=== PATIENT | female | born 1960 | race Caucasian/White ===

== ENCOUNTER → 2016-07-22 | Outpatient (CLI) | payer BC ==
[~2016-07-22] MED LIST: CALC-393 PO; CALC-51 PO; CALC500T83 PO; CALC625T13 PO; CHLO10CA7 PO; CHOL1000 PO; CITA20TA4 PO; CLX/20 PO; CLX20 PO; CPR250 PO; FOLI1TAB7 PO; HYDR-3126 PO; LBR10 PO; LBR25 PO; MULT-506 PO; OMEP40CA PO; OMEP40CA41 PO; PROB1TAB16 PO; RBTUDL5 PO; THM100 PO; ULT50X PO; VITAMIN B1 PO; VTMD400 PO
[2016-07-22 17:33] LABS: BLOOD UREA NITROGEN 7 mg/dl (7-18); BUN/CREATININE RATIO 7.6 (10-20); CALCIUM 9.4 mg/dl (8.5-10.1); CARBON DIOXIDE 29 mmol/L (21-32); CHLORIDE 103 mmol/L (98-107); CREATININE 0.93 mg/dl (0.60-1.20); GLUCOSE 114 mg/dl (70-99); POTASSIUM 3.6 mmol/L (3.5-5.1); SODIUM 142 mmol/L (136-145)
[2016-07-22 17:37] LABS: ALB/GLOB RATIO 0.9 (0.9-2); ALKALINE PHOSPHATASE 192 U/L (45-117); ALT/SGPT 45 U/L (12-78); AST/SGOT 161 U/L (15-37)
[2016-07-22 17:59] LABS: HEMATOCRIT 32.1 % (37-47); MEAN CELL VOLUME 101.3 fL (80-100); MEAN CORPUSCULAR HEMOGLOBIN 34.7 pg (25-34); MEAN CORPUSCULAR HGB CONC 34.3 g/dl (32-36); RED BLOOD COUNT 3.17 M/uL (4.2-5.4); WHITE BLOOD COUNT 3.74 K/uL (4.8-10.8)
[2016-07-22 18:04] LABS: BASO % 1.9 %; BASO ABS # 0.07 K/uL (0-0.2); COMPLETE YES; EOS % 0.5 %; IG% 1.1 %; LYMPH % 32.4 %; LYMPH ABS # 1.21 K/uL (1.2-3.4); MEAN PLATELET VOLUME 10.5 fL (7.4-10.4); MONO % 24.6 %; NEUT % 39.5 %; PLATELET COUNT 93 K/uL (130-400); PLT ESTIMATE DECREASED; TARGET CELLS 1+
== END | disposition home or self-care (01) ==
LOC: C.LABPVFM 11:46
PROVIDERS: ATTEND Nurse Practitioner
DX: R63.4 Abnormal weight loss (principal); R74.8 Abnormal levels of other serum enzymes; F10.10 Alcohol abuse, uncomplicated; D64.9 Anemia, unspecified

== ENCOUNTER 2016-09-29 08:14 | Inpatient (IN) | payer BC ==
[~2016-09-29] VITALS: Ht 160 cm; Wt 54.1 kg
[~2016-09-29 08:14] MED LIST changes: -CALC-393 PO; -CALC-51 PO; -CALC500T83 PO; -CALC625T13 PO; -CHLO10CA7 PO; -CHOL1000 PO; +CIPR250T5 PO; -CITA20TA4 PO; -CLX/20 PO; -CPR250 PO; -FOLI1TAB7 PO; -HYDR-3126 PO; -LBR10 PO; -MULT-506 PO; -OMEP40CA41 PO; -PROB1TAB16 PO; -THM100 PO; -ULT50X PO; -VITAMIN B1 PO; -VTMD400 PO
[2016-09-29] MEDS ORDERED: SODIUM CHLORIDE 0.9% 1000ML 1,000 ML IV STA (08:25)
--- NOTE | 2016-09-29 08:38 | EMERGENCY ROOM VISIT NOTE ---
History Report prepared by Danilo: Eriberto Barclay Under the Supervision of: Dr. Mireya Potts M.D. First contact with patient: 08:24 Chief Complaint: ABDOMINAL PAIN Stated Complaint: WEAKNESS, VOMITING Nursing Triage Summary: Triage note: Pt reports right abd pain over the past two days "they told me i would have to get my gall bladder out last september when i was in here." pt reports nausea and vomitting. pt reports she has passed out twice in the week. most recent was this am at work. History of Present Illness The patient is a 56 year old female who presents to the Emergency Room with complaints of intermittent right-sided abdominal pain for the past week. The pain is rated 10/10 in severity. The patient vomited this morning. She feels that her abdomen has been growing. The patient was told that she would eventually need to have her gallbladder removed. She denies fevers, shortness of breath or diarrhea. The patient had two episodes of syncope this week. She was not exerting herself when these episodes occurred. As per , the patient was incoherent and staggering when these episodes occurred , and she was difficult to rouse. She denies significant intoxication at the time of these syncopal episodes. The patient admits that she is an alcoholic. She already had vodka this morning. The patient was diagnosed with a fatty liver. Source of History: patient, spouse/significant other Onset: one week Position: abdomen (right) Symptom Intensity: 10/10 Timing: intermittent Associated Symptoms: + LOC (syncope), + vomiting, No SOB, No diarrhea, No fevers Review of Systems See HPI for pertinent positives & negatives. A total of 10 systems reviewed and were otherwise negative. Past Medical & Surgical Medical Problems: (1) Alcoholic cirrhosis of liver (2) Coagulopathy (3) Right upper quadrant abdominal pain Family History Cancer Diabetes mellitus Gallbladder disease Hypertension Lung disease Social History Smoking Status: Current Every Day Smoker Alcohol Use: heavy Drug Use: none Marital Status: Housing Status: lives with family Occupation Status: employed Current/Historical Medications Scheduled Calcium (Calcium), 1 TAB PO DAILY Chlordiazepoxide (Chlordiazepoxide HCl), 10 MG PO DAILY Cholecalciferol (Vitamin D3), 1 TAB PO DAILY Citalopram (Citalopram Hydrobromide), 1 TAB PO DAILY Multivitamin (Multivitamin), 1 TAB PO DAILY Omeprazole (Prilosec), 1 CAP PO BID Allergies Coded Allergies: No Known Allergies (Verified , 09/15/15) Physical Exam Vital Signs Date Time Temp Pulse Resp B/P Pulse Ox O2 Delivery O2 Flow Rate FiO2 09/29/16 13:25 82 20 126/71 97 Room Air 09/29/16 12:30 98 Room Air 09/29/16 11:21 88 16 127/78 98 Room Air 09/29/16 10:32 92 16 120/79 99 09/29/16 09:55 84 16 107/71 99 Room Air 09/29/16 08:17 36.4 125 22 163/101 97 Room Air Physical Exam Vital signs reviewed. General: Chronically ill-appearing female, in no significant distress. HEENT: No scleral icterus, PERRLA, neck supple. Atraumatic. Cardiovascular: Regular rate and rhythm, no extra sounds. Pulmonary: Clear to auscultation bilaterally, normal work of breathing. Abdomen: Distended, mild tenderness to the right upper quadrant. Musculoskeletal: Atraumatic, no peripheral edema. Neurologic: Patient awake alert and oriented x 3, full strength in all 4 extremities. Cranial nerves 2 through 12 grossly intact. Skin: Warm, dry, no rash. Bruising to the left facial cheek left shoulder and left forearm. Medical Decision & Procedures ER Provider Diagnostic Interpretation: X-ray results as stated below per my interpretation and radiologist interpretation. Other radiology results as stated below per my review and radiologist interpretation: ABDOMEN AND PELVIS CT WITH IV CONTRAST CT DOSE: 441.47 mGy.cm HISTORY: RUQ pain, ETOH abuse TECHNIQUE: Multiaxial CT images of the abdomen and pelvis were performed following the use of intravenous contrast. COMPARISON STUDY: None. FINDINGS: Lung bases are clear. Findings of early hepatic cirrhosis. Fatty infiltration of liver. Gallbladder is mildly distended with a small amount of sludge and/or debris. Spleen is slightly prominent. The small amount of abdominal and pelvic ascites. Findings of mild/moderate wall thickening of the a sending colon consistent with a nonspecific colitis. Less prominent findings are seen within the transverse and descending colonic region. There is no evidence for abscess collection or obstruction. Bladder is midline. There are several pelvic vascular calcifications. Moderate prominence of the intrahepatic bile duct at 7 mm which has been described previously. IMPRESSION: 1. Findings consistent with developing hepatic cirrhosis, fatty infiltration of liver, as well as a small amount of abdominal and pelvic ascites. 2. Mild gallbladder distention with a small amount of contained debris. 3. Mild prominence of the extra hepatic common bile duct at 7 mm also described previously. 4. Mild to moderate wall thickening of the colon consistent with a nonspecific colitis. No evidence for abscess collection or obstruction. Electronically signed by: Charanjit Garcia M.D. 09/29/2016 11:16 AM Dictated Date/Time: 09/29/2016 11:[address] CT DOSE: 537.48 mGy.cm HISTORY: Trauma ETOH abuse, falls, facial bruising TECHNIQUE: Multiaxial CT images of the head were performed without the use of intravenous contrast. Comparison: None. Findings: The paranasal sinuses and mastoid air cells are clear. The calvarium and skull base are intact. The ventricles and sulci are within normal limits. There is no mass, hematoma, midline shift, or acute infarct. Impression: No acute intracranial abnormality. Electronically signed by: Charanjit Garcia M.D. 09/29/2016 9:52 AM Dictated Date/Time: 09/29/2016 9:52 AM CHEST ONE VIEW PORTABLE CLINICAL HISTORY: RUQ pain, syncope pain. Nausea. COMPARISON STUDY: 09/17/2015 FINDINGS: Nodular density versus nipple artifact left base. Lungs otherwise are clear. There are no acute infiltrates. Old healed fracture left fifth rib. No evidence for cardiac enlargement. IMPRESSION: 1. No acute process. 2. Nodular density versus overlap artifact left base. Oblique films are recommended as follow-up Electronically signed by: Charanjit Garcia M.D. 09/29/2016 8:46 AM Dictated Date/Time: 09/29/2016 8:45 AM Right upper abdominal ultrasound GALLBLADDER-ABD LIMITED CLINICAL HISTORY: RUQ pain, cholecystitis pain. Nausea. TECHNIQUE: Ultrasound COMPARISON STUDY: 09/16/2015 FINDINGS: Small amount of gallbladder sludge. Mild gallbladder wall thickening 3 to 4 mm. No shadowing gallstones. Common bile duct 8 mm. Liver is echogenic consistent with fatty infiltration. Trace right upper quadrant free fluid and/or ascites. IMPRESSION: 1. Small amount of gallbladder sludge with mild gallbladder wall thickening. Trace free fluid. 8 mm common bile duct. 2. These findings are unchanged compared to the prior study of 09/16/2015 Electronically signed by: Charanjit Garcia M.D. 09/29/2016 9:49 AM Dictated Date/Time: 09/29/2016 9:47 AM Laboratory Results Test 09/29/16 08:30 09/29/16 08:42 09/29/16 08:56 09/29/16 08:58 Immature Granulocyte % (Auto) 1.0 % White Blood Count 3.97 K/uL (4.8-10.8) Red Blood Count 2.98 M/uL (4.2-5.4) Hemoglobin 10.6 g/dL (12.0-16.0) Hematocrit 30.0 % (37-47) Mean Corpuscular Volume 100.7 fL (80-100) Mean Corpuscular Hemoglobin 35.6 pg (25-34) Mean Corpuscular Hemoglobin Concent 35.3 g/dl (32-36) Platelet Count 48 K/uL (130-400) Mean Platelet Volume 10.4 fL (7.4-10.4) Neutrophils (%) (Auto) 51.3 % Lymphocytes (%) (Auto) 28.7 % Monocytes (%) (Auto) 17.4 % Eosinophils (%) (Auto) 0.8 % Basophils (%) (Auto) 0.8 % Neutrophils # (Auto) 2.04 K/uL (1.4-6.5) Lymphocytes # (Auto) 1.14 K/uL (1.2-3.4) Monocytes # (Auto) 0.69 K/uL (0.11-0.59) Eosinophils # (Auto) 0.03 K/uL (0-0.5) Basophils # (Auto) 0.03 K/uL (0-0.2) Immature Granulocyte # (Auto) 0.04 K/uL (0.00-0.02) Platelet Estimate DECREASED Target Cells 1+ Lipase 152 U/L (73-393) Bedside Troponin I 0.000 ng/ml (0-0.045) Urine Color TONY Urine Appearance CLEAR (CLEAR) Urine pH 6.5 (4.5-7.5) Urine Specific [place] 1.010 (1.000-1.030) Urine Protein 1+ (NEG) Urine Glucose (UA) NEG (NEG) Urine Ketones NEG (NEG) Urine Occult Blood TRACE (NEG) Urine Nitrite NEG (NEG) Urine Bilirubin 1+ (NEG) Urine Urobilinogen NEG (NEG) Urine Leukocyte Esterase NEG (NEG) Urine WBC (Auto) 1-5 /hpf (0-5) Urine RBC (Auto) 0-4 /hpf (0-4) Urine Hyaline Casts (Auto) 5-10 /lpf (0-5) Urine Epithelial Cells (Auto) >30 /lpf (0-5) Urine Bacteria (Auto) NEG (NEG) Urine RBC /hpf (0-4) Urine WBC /hpf (0-5) Urine Epithelial Cells /lpf (0-5) Urine Bacteria (NEG) Ethyl Alcohol mg/dL 389.0 mg/dl (0-3) Laboratory results per my review. Medications Administered Medications (Trade) Dose Ordered Sig/Veena Route Start Time Stop Time Status Last Admin Dose Admin Multivitamins/ Thiamine HCl/ Folic Acid/Sodium Chloride (Mvi Infusion Inj/Vitamin B-1 Inj/Folvite Inj/ Nss 1000ml) 1,011.2 ml @ 300 mls/ hr Q3H23M ONCE IV 09/29/16 08:45 09/29/16 12:07 DC 09/29/16 09:55 300 MLS/HR Magnesium Sulfate (Magnesium Sulfate) 2 gm NOW STAT IV 09/29/16 09:57 09/29/16 09:58 DC 09/29/16 10:23 2 GM Potassium Chloride (Kcl 10 Meq / Wtr) 20 meq NOW STAT IV 09/29/16 09:57 09/29/16 09:58 DC 09/29/16 10:22 20 MEQ ECG Indication: abdominal pain Rate (beats per minute): 98 Rhythm: normal sinus Findings: no acute ischemic change, no ectopy ED Course 0825: NSS 1000 ml @ 125 mls/hr. 0830: Past medical records reviewed. The patient was evaluated in room B3b. A complete history and physical examination was performed. 0845: Multivitamins 1011.2 ml @ 300 mls/hr. 0957: Potassium Chloride 20 meq IV, Magnesium Sulfate 2gm IV. 1214: Discussed the case with Dr. Owen. The patient will be evaluated for hospitalization. Medical Decision Differential includes acute cholecystitis, hepatitis, pancreatitis, ischemic gut , SBP. This pt was evaluated and appeared to be in no distress. IV access was obtained and lab work was drawn. Patient was hydrated with normal saline solution. Patient was given a banana bag. Laboratory work reveals a significant alcohol intoxication with a blood alcohol of 389. She is thrombocytopenic and has not INR 1.5. Ultrasound and CT were performed and read as above. There is a concern over CBD dilation and developing cirrhosis/ ascites. Gallbladder is questionably thickened. The picture is obscured secondary to the patient's cirrhosis as this may not represent an acute cholecystitis. This time the patient will be evaluated by the hospitalist service for admission and further management of the right upper quadrant abdominal pain. She was informed of the markedly elevated alcohol level. She states she has been through rehabilitation several times and was sober until about 5 years ago. This has been an ongoing issue for the patient. At this time she shows no signs of alcohol withdrawal. Consults Time Called: 1205 Consulting Physician: Dr. Owen, Hospitalist Returned Call: [phone]: Discussed the case with Dr. Owen. The patient will be evaluated for hospitalization. Impression Primary Impression: RUQ abdominal pain Additional Impressions: Common bile duct dilatation Alcohol intoxication Alcohol dependence Scribe Attestation The scribe's documentation has been prepared under my direction and personally reviewed by me in its entirety. I confirm that the note above accurately reflects all work, treatment, procedures, and medical decision making performed by me. Departure Information Dispostion Being Evaluated By Hospitalist Referrals Katy Nath, C.R.N.P (PCP) Patient Instructions [facility] Problem Qualifiers Additional Impressions: Alcohol intoxication Complication of substance-induced condition: with unspecified complication Qualified Codes: F10.129 - Alcohol abuse with intoxication, unspecified Alcohol dependence Substance use status: with intoxication Complication of substance-induced condition: with unspecified complication Qualified Codes: F10.229 - Alcohol dependence with intoxication, unspecified
[2016-09-29 08:42] LABS: MEAN CELL VOLUME 100.7 fL (80-100); MEAN CORPUSCULAR HEMOGLOBIN 35.6 pg (25-34); MEAN CORPUSCULAR HGB CONC 35.3 g/dl (32-36); RED BLOOD COUNT 2.98 M/uL (4.2-5.4); WHITE BLOOD COUNT 3.97 K/uL (4.8-10.8)
[2016-09-29] MEDS ORDERED: MULTI-VITAMIN INFUSION INJ 10 ML, THIAMINE HCL INJ 100 MG, FoLIC ACID INJ 1 MG in SODIU... IV ONE (08:45)
[2016-09-29] MEDS ORDERED: CLX/20 PO (08:47)
[2016-09-29] MEDS ORDERED: LBR10 PO (08:47)
[2016-09-29] MEDS ORDERED: OMEP40CA41 PO (08:47)
--- NOTE | 2016-09-29 08:47 | DIAGNOSTIC IMAGING REPORT ---
CHEST ONE VIEW PORTABLE CLINICAL HISTORY: RUQ pain, syncope pain. Nausea. COMPARISON STUDY: 09/17/2015 FINDINGS: Nodular density versus nipple artifact left base. Lungs otherwise are clear. There are no acute infiltrates. Old healed fracture left fifth rib. No evidence for cardiac enlargement. IMPRESSION: 1. No acute process. 2. Nodular density versus overlap artifact left base. Oblique films are recommended as follow-up Electronically signed by: Charanjit Garcia M.D. 09/29/2016 8:46 AM Dictated Date/Time: 09/29/2016 8:45 AM
[2016-09-29] MEDS ORDERED: CALC-51 PO (08:48)
[2016-09-29] MEDS ORDERED: MULT-506 PO (08:48)
[2016-09-29] MEDS ORDERED: VTMD400 PO (08:48)
[2016-09-29] MEDS ORDERED: CALC500T83 PO (08:49)
[2016-09-29 09:01] LABS: BUN/CREATININE RATIO 7.6 (10-20); CALCIUM 8.8 mg/dl (8.5-10.1); CREATININE 0.87 mg/dl (0.60-1.20)
[2016-09-29 09:04] LABS: BASO % 0.8 %; BASO ABS # 0.03 K/uL (0-0.2); COMPLETE YES; EOS % 0.8 %; LYMPH % 28.7 %; LYMPH ABS # 1.14 K/uL (1.2-3.4); MEAN PLATELET VOLUME 10.4 fL (7.4-10.4); MONO % 17.4 %; NEUT % 51.3 %; PLATELET COUNT 48 K/uL (130-400); PLT ESTIMATE DECREASED; TARGET CELLS 1+
[2016-09-29 09:07] LABS: URINE APPEARANCE CLEAR (CLEAR); URINE COLOR AMBER; URINE NITRITE NEG (NEG); URINE PH 6.5 (4.5-7.5); UROBILINOGEN NEG (NEG)
[2016-09-29 09:09] LABS: URINE BILIRUBIN 1+ (NEG)
[2016-09-29 09:14] LABS: INR 1.5 (0.9-1.1); PARTIAL THROMBOPLASTIN RATIO 1.3; PROTHROMBIN TIME (PATIENT) 16.8 SECONDS (9.0-12.0)
[2016-09-29 09:26] LABS: URINE EPITHELIAL CELL AUTO >30 /lpf (0-5)
[2016-09-29 09:28] LABS: MANUAL MICROSCOPIC REQUIRED? NO; REVIEW REQ? YES; ZZUR CULT IF INDIC CLEAN CATCH NO
--- NOTE | 2016-09-29 09:51 | DIAGNOSTIC IMAGING REPORT ---
Right upper abdominal ultrasound GALLBLADDER-ABD LIMITED CLINICAL HISTORY: RUQ pain, cholecystitis pain. Nausea. TECHNIQUE: Ultrasound COMPARISON STUDY: 09/16/2015 FINDINGS: Small amount of gallbladder sludge. Mild gallbladder wall thickening 3 to 4 mm. No shadowing gallstones. Common bile duct 8 mm. Liver is echogenic consistent with fatty infiltration. Trace right upper quadrant free fluid and/or ascites. IMPRESSION: 1. Small amount of gallbladder sludge with mild gallbladder wall thickening. Trace free fluid. 8 mm common bile duct. 2. These findings are unchanged compared to the prior study of 09/16/2015 Electronically signed by: Charanjit Garcia M.D. 09/29/2016 9:49 AM Dictated Date/Time: 09/29/2016 9:47 AM
--- NOTE | 2016-09-29 09:53 | DIAGNOSTIC IMAGING REPORT ---
HEAD CT NONCONTRAST CT DOSE: 537.48 mGy.cm HISTORY: Trauma ETOH abuse, falls, facial bruising TECHNIQUE: Multiaxial CT images of the head were performed without the use of intravenous contrast. Comparison: None. Findings: The paranasal sinuses and mastoid air cells are clear. The calvarium and skull base are intact. The ventricles and sulci are within normal limits. There is no mass, hematoma, midline shift, or acute infarct. Impression: No acute intracranial abnormality. Electronically signed by: Charanjit Garcia M.D. 09/29/2016 9:52 AM Dictated Date/Time: 09/29/2016 9:52 AM
[2016-09-29] MEDS ORDERED: POTASSIUM CHLORIDE 10 MEQ / 100ML WTR IV STA (09:57)
[2016-09-29] MEDS ORDERED: MAGNESIUM SULFATE 1GM / D5W 1 GM BAG IV STA (09:57)
[2016-09-29] MEDS ORDERED: OPTIRAY 320 IV PRN (10:45)
--- NOTE | 2016-09-29 11:17 | DIAGNOSTIC IMAGING REPORT ---
ABDOMEN AND PELVIS CT WITH IV CONTRAST CT DOSE: 441.47 mGy.cm HISTORY: RUQ pain, ETOH abuse TECHNIQUE: Multiaxial CT images of the abdomen and pelvis were performed following the use of intravenous contrast. COMPARISON STUDY: None. FINDINGS: Lung bases are clear. Findings of early hepatic cirrhosis. Fatty infiltration of liver. Gallbladder is mildly distended with a small amount of sludge and/or debris. Spleen is slightly prominent. The small amount of abdominal and pelvic ascites. Findings of mild/moderate wall thickening of the a sending colon consistent with a nonspecific colitis. Less prominent findings are seen within the transverse and descending colonic region. There is no evidence for abscess collection or obstruction. Bladder is midline. There are several pelvic vascular calcifications. Moderate prominence of the intrahepatic bile duct at 7 mm which has been described previously. IMPRESSION: 1. Findings consistent with developing hepatic cirrhosis, fatty infiltration of liver, as well as a small amount of abdominal and pelvic ascites. 2. Mild gallbladder distention with a small amount of contained debris. 3. Mild prominence of the extra hepatic common bile duct at 7 mm also described previously. 4. Mild to moderate wall thickening of the colon consistent with a nonspecific colitis. No evidence for abscess collection or obstruction. Electronically signed by: Charanjit Garcia M.D. 09/29/2016 11:16 AM Dictated Date/Time: 09/29/2016 11:09 AM
[2016-09-29 12:30] VITALS: O2SAT 98; Ht 160 cm; Wt 54.1 kg
[2016-09-29] MEDS ORDERED: GABAPENTIN 600 MG TAB PO SCH (14:15)
[2016-09-29] MEDS ORDERED: GABAPENTIN 600 MG TAB PO ONE (14:45)
[2016-09-29 15:26] VITALS: BP 120/76; PULSE 86; TEMP 36.5; O2SAT 98
[2016-09-29 15:48] VITALS: BP 111/69; PULSE 74; TEMP 36.3; O2SAT 100
--- NOTE | 2016-09-29 15:51 | History and Physical ---
History & Physical Date & Time of Service: Sep 29, 2016 at 14:21 Chief Complaint: Weakness, Vomiting Primary Care Physician: Katy Nath C.R.N.P History of Present Illness Source: patient, spouse This is a 56 y/o female with hx of alcohol abuse presented to the hospital with abdominal pain X1week. She states the pain is located on the RUQ, intermittent, 10/10 when severe and non radiating. She was also nauseated this morning and vomit once. She drank this morning and afternoon also. She states that she might have drank couple of glasses of wine and vodka today. Also states that she feels "bloated". She had one episode of epistasis on . Denies any other bleeding. Denies fever, SOB, chest pain, constipation, diarrhea, GI bleeding, headache, dizziness, tremor, or any other additional symptoms. Patient states that she is very prone to bruising and states that with small trauma she would get bruises easily. About 10 days while she was walking her dog , she tangled herself, fell and bruised the left side of her face. Bruises on her left wrist from the goat horn. She states that she has many animals. Patient states that she drinks everyday, mostly Vodka and wine. When asked how much, she replied "she doesn't keep track of drinking". She was sober from 1999- 2010 and then relapse again. Patient lives with her at home. Works at [employer]. Smokes 1/2 cig/day. She states that in the past she was told that her gallbladder needs to be removed. Past Medical/Surgical History (1) Adames's esophagus Status: Chronic (2) Depression Status: Chronic (3) GERD Status: Chronic (4) Alcohol Abuse Status: Chronic (5) Scoliosis Status: Chronic Family History Cancer Diabetes mellitus Gallbladder disease Hypertension Lung disease Social History Smoking Status: Current Every Day Smoker Alcohol Use: heavy Drug Use: none Marital Status: Housing status: lives with family Occupational Status: employed Multi-Drug Resistant Organisms History of MDRO: No Allergies Coded Allergies: No Known Allergies (Verified , 09/15/15) Home Medications Scheduled Calcium (Calcium), 1 TAB PO DAILY Chlordiazepoxide (Chlordiazepoxide HCl), 10 MG PO DAILY Cholecalciferol (Vitamin D3), 1 TAB PO DAILY Citalopram (Citalopram Hydrobromide), 1 TAB PO DAILY Multivitamin (Multivitamin), 1 TAB PO DAILY Omeprazole (Prilosec), 1 CAP PO BID Review of Systems Constitutional: No chills, No fever, No weakness Eyes: No worsening of vision ENT: No sore throat Respiratory: No cough, No dyspnea at rest, No dyspnea on exertion, No hemoptysis, No shortness of breath, No sputum, No wheezing Cardiovascular: No chest pain, No edema, No palpitations Abdomen: + nausea, + pain (RUQ pain), + vomiting, No GI bleeding, No constipation, No diarrhea Musculoskeletal: No muscle pain Genitourinary - Female: No dysuria Neurologic: No memory loss, No numbness/tingling, No weakness Psychiatric: + problem reported (alcohol abuse) Endocrine: No fatigue Integumentary: + problem reported (states that she is very prone to bruising ) , No bleeding, No rash Physical Exam Vital Signs Date Time Temp Pulse Resp B/P Pulse Ox O2 Delivery O2 Flow Rate FiO2 09/29/16 13:25 82 20 97 Room Air 09/29/16 12:30 98 Room Air 09/29/16 11:21 88 16 127/78 98 Room Air 09/29/16 10:32 92 16 120/79 99 09/29/16 09:55 84 16 107/71 99 Room Air 09/29/16 08:17 36.4 125 22 163/101 97 Room Air General Appearance: WD/WN, no apparent distress Head: normocephalic, atraumatic Eyes: + pertinent finding (icterus conjunctiva) Neck: supple, trachea midline Respiratory/Chest: chest non-tender, lungs clear, normal breath sounds, no respiratory distress, no accessory muscle use Cardiovascular: regular rate, rhythm, no edema, no murmur, normal peripheral pulses Abdomen/GI: normal bowel sounds, non tender, soft, + distended Extremities/Musculoskelatal: no calf tenderness, no pedal edema, non-tender Neurologic/Psych: alert, normal mood/affect, oriented x 3 Skin: normal color, warm/dry, + jaundice, + pertinent finding (bruises noted on the left side of her face and left wrist. ) Diagnostics Laboratory Results Results Past 24 Hours Test 09/29/16 08:30 09/29/16 08:42 09/29/16 08:56 09/29/16 08:58 Range/Units White Blood Count 3.97 4.8-10.8 K/uL Red Blood Count 2.98 4.2-5.4 M/uL Hemoglobin 10.6 12.0-16.0 g/dL Hematocrit 30.0 37-47 % Mean Corpuscular Volume 100.7 80-100 fL Mean Corpuscular Hemoglobin 35.6 25-34 pg Mean Corpuscular Hemoglobin Concent 35.3 32-36 g/dl Platelet Count 48 130-400 K/uL Mean Platelet Volume 10.4 7.4-10.4 fL Neutrophils (%) (Auto) 51.3 % Lymphocytes (%) (Auto) 28.7 % Monocytes (%) (Auto) 17.4 % Eosinophils (%) (Auto) 0.8 % Basophils (%) (Auto) 0.8 % Neutrophils # (Auto) 2.04 1.4-6.5 K/uL Lymphocytes # (Auto) 1.14 1.2-3.4 K/uL Monocytes # (Auto) 0.69 0.11-0.59 K/uL Eosinophils # (Auto) 0.03 0-0.5 K/uL Basophils # (Auto) 0.03 0-0.2 K/uL RDW Standard Deviation 55.5 36.4-46.3 fL RDW Coefficient of Variation 15.2 11.5-14.5 % Immature Granulocyte % (Auto) 1.0 % Immature Granulocyte # (Auto) 0.04 0.00-0.02 K/uL Platelet Estimate DECREASED Target Cells 1+ Sodium Level 139 136-145 mmol/L Potassium Level 3.0 3.5-5.1 mmol/L Chloride Level 103 98-107 mmol/L Carbon Dioxide Level 24 21-32 mmol/L Anion Gap 12.0 3-11 mmol/L Blood Urea Nitrogen 7 7-18 mg/dl Creatinine 0.87 0.60-1.20 mg/dl Est Creatinine Clear Calc Drug Dose 59.0 ml/min Estimated GFR () 85.7 Estimated GFR (Non- 74.0 BUN/Creatinine Ratio 7.6 10-20 Random Glucose 97 70-99 mg/dl Calcium Level 8.8 8.5-10.1 mg/dl Total Bilirubin 2.3 0.2-1 mg/dl Direct Bilirubin 1.8 0-0.2 mg/dl Aspartate Amino Transf (AST/SGOT) 262 15-37 U/L Alanine Aminotransferase (ALT/SGPT) 47 12-78 U/L Alkaline Phosphatase 274 45-117 U/L Total Protein 8.0 6.4-8.2 gm/dl Albumin 3.4 3.4-5.0 gm/dl Lipase 152 73-393 U/L Bedside Troponin I 0.000 0-0.045 ng/ml Urine Color TONY Urine Appearance CLEAR CLEAR Urine pH 6.5 4.5-7.5 Urine Specific Mcintosh 1.010 1.000-1.030 Urine Protein 1+ NEG Urine Glucose (UA) NEG NEG Urine Ketones NEG NEG Urine Occult Blood TRACE NEG Urine Nitrite NEG NEG Urine Bilirubin 1+ NEG Urine Urobilinogen NEG NEG Urine Leukocyte Esterase NEG NEG Urine WBC (Auto) 1-5 0-5 /hpf Urine RBC (Auto) 0-4 0-4 /hpf Urine Hyaline Casts (Auto) 5-10 0-5 /lpf Urine Epithelial Cells (Auto) >30 0-5 /lpf Urine Bacteria (Auto) NEG NEG Urine RBC 0-4 /hpf Urine WBC 0-5 /hpf Urine Epithelial Cells 0-5 /lpf Urine Bacteria NEG Prothrombin Time 16.8 9.0-12.0 SECONDS Prothromb Time International Ratio 1.5 0.9-1.1 Activated Partial Thromboplast Time 32.7 21.0-31.0 SECONDS Partial Thromboplastin Ratio 1.3 Magnesium Level 1.2 1.8-2.4 mg/dl Ethyl Alcohol mg/dL 389.0 0-3 mg/dl Test 09/29/16 13:51 Range/Units Diagnostic Radiology Patient Name: RUBENS ALEX Unit Number: [id number] Dictated: 09/29/16946 Transcribed: 09/29/16946 MS Printed Date/Time: [~ rep prt dt]/[~ rep prt tm] [~ rep ct labl] - [~ rep ct ivnm] [facility] [place] [address] Dictated: 09/29/16946 Transcribed: 09/29/16946 MS Printed Date/Time: [~ rep prt dt]/[~ rep prt tm] [~ rep ct labl] - [~ rep ct ivnm] Right upper abdominal ultrasound GALLBLADDER-ABD LIMITED CLINICAL HISTORY: RUQ pain, cholecystitis pain. Nausea. TECHNIQUE: Ultrasound COMPARISON STUDY: 09/16/2015 FINDINGS: Small amount of gallbladder sludge. Mild gallbladder wall thickening 3 to 4 mm. No shadowing gallstones. Common bile duct 8 mm. Liver is echogenic consistent with fatty infiltration. Trace right upper quadrant free fluid and/or ascites. IMPRESSION: 1. Small amount of gallbladder sludge with mild gallbladder wall thickening. Trace free fluid. 8 mm common bile duct. 2. These findings are unchanged compared to the prior study of 09/16/2015 Electronically signed by: Charanjit Garcia M.D. 09/29/2016 9:49 AM Dictated Date/Time: 09/29/2016 9:47 AM The status of this report is Signed. Draft = Not yet reviewed or approved by Radiologist. Signed = Reviewed and approved by Radiologist. <AttendingPhy></AttendingPhy> <FamilyPhy>Katy Nath C.R.NBrookeP</FamilyPhy> < PrimaryPhy>Katy Nath C.R.N.P</PrimaryPhy> <UnitNumber>[id number]</ UnitNumber> <VisitNumber>[id number]</VisitNumber> <PatientName>RUBENS ALEX</ PatientName> <DateOfBirth>1960</DateOfBirth> <Location>C.EDB</Location> < ServiceDate>09/29/16</ServiceDate> <MNE>ESINDI</MNE> <OrderingPhy>Mireya Potts M.D.</OrderingPhy> <OrderingPhyMNE>f rep ord dr pemberton</OrderingPhyMNE> < DictatingPhyMNE>f rep dict dr pemberton</DictatingPhyMNE> <CCListMNE>f rep ct mne</ CCListMNE> <AdmittingPhyMNE>f pt admit dr pemberton</AdmittingPhyMNE> <AttendingPhyMNE >f pt attend dr pemberton</AttendingPhyMNE> <ConsultingPhyMNE>f pt consult dr pemberton</ConsultingPhyMNE> <FamilyPhyMNE>f pt fam dr pemberton</FamilyPhyMNE> <OtherPhyMNE>f pt other dr pemberton</OtherPhyMNE> < PrimaryPhyMNE>f pt prim care dr pemberton</PrimaryPhyMNE> <ReferringPhyMNE>f pt referring dr pemberton</ReferringPhyMNE> Patient Name: RUBENS ALEX Unit Number: [id number] Dictated: 09/29/161108 Transcribed: 09/29/161108 MS Printed Date/Time: [~ rep prt dt]/[~ rep prt tm] [~ rep ct labl] - [~ rep ct ivnm] [facility] Radiology Department [place], [place] [id number] Dictated: 09/29/161108 Transcribed: 09/29/161108 MS Printed Date/Time: [~ rep prt dt]/[~ rep prt tm] [~ rep ct labl] - [~ rep ct ivnm] ABDOMEN AND PELVIS CT WITH IV CONTRAST CT DOSE: 441.47 mGy.cm HISTORY: RUQ pain, ETOH abuse TECHNIQUE: Multiaxial CT images of the abdomen and pelvis were performed following the use of intravenous contrast. COMPARISON STUDY: None. FINDINGS: Lung bases are clear. Findings of early hepatic cirrhosis. Fatty infiltration of liver. Gallbladder is mildly distended with a small amount of sludge and/or debris. Spleen is slightly prominent. The small amount of abdominal and pelvic ascites. Findings of mild/moderate wall thickening of the a sending colon consistent with a nonspecific colitis. Less prominent findings are seen within the transverse and descending colonic region. There is no evidence for abscess collection or obstruction. Bladder is midline. There are several pelvic vascular calcifications. Moderate prominence of the intrahepatic bile duct at 7 mm which has been described previously. IMPRESSION: 1. Findings consistent with developing hepatic cirrhosis, fatty infiltration of liver, as well as a small amount of abdominal and pelvic ascites. 2. Mild gallbladder distention with a small amount of contained debris. 3. Mild prominence of the extra hepatic common bile duct at 7 mm also described previously. 4. Mild to moderate wall thickening of the colon consistent with a nonspecific colitis. No evidence for abscess collection or obstruction. Electronically signed by: Charanjit Garcia M.D. 09/29/2016 11:16 AM Dictated Date/Time: 09/29/2016 11:09 AM The status of this report is Signed. Draft = Not yet reviewed or approved by Radiologist. Signed = Reviewed and approved by Radiologist. <AttendingPhy></AttendingPhy> <FamilyPhy>Katy Nath C.R.N.P</FamilyPhy> < PrimaryPhy>Katy Nath C.R.N.P</PrimaryPhy> <UnitNumber>[id number]</ UnitNumber> <VisitNumber>[id number]</VisitNumber> <PatientName>RUBENS ALEX</ PatientName> <DateOfBirth>1960</DateOfBirth> <Location>C.EDB</Location> < ServiceDate>09/29/16</ServiceDate> <MNE>ESINDI</MNE> <OrderingPhy>Mireya Potts M.D.</OrderingPhy> <OrderingPhyMNE>f rep ord dr pemberton</OrderingPhyMNE> < DictatingPhyMNE>f rep dict dr pemberton</DictatingPhyMNE> <CCListMNE>f rep ct mne</ CCListMNE> <AdmittingPhyMNE>f pt admit dr pemberton</AdmittingPhyMNE> <AttendingPhyMNE >f pt attend dr pemberton</AttendingPhyMNE> <ConsultingPhyMNE>f pt consult dr pemberton</ConsultingPhyMNE> <FamilyPhyMNE>f pt fam dr pemberton</FamilyPhyMNE> <OtherPhyMNE>f pt other dr pemberton</OtherPhyMNE> < PrimaryPhyMNE>f pt prim care dr pemberton</PrimaryPhyMNE> <ReferringPhyMNE>f pt referring dr pemberton</ReferringPhyMNE> Patient Name: RUBENS ALEX Unit Number: [id number] Dictated: 09/29/16951 Transcribed: 09/29/16951 MS Printed Date/Time: [~ rep prt dt]/[~ rep prt tm] [~ rep ct labl] - [~ rep ct ivnm] [facility] [place] [address] Dictated: 09/29/1652 Transcribed: 09/29/16 0952 MS Printed Date/Time: [~ rep prt dt]/[~ rep prt tm] [~ rep ct labl] - [~ rep ct ivnm] HEAD CT NONCONTRAST CT DOSE: 537.48 mGy.cm HISTORY: Trauma ETOH abuse, falls, facial bruising TECHNIQUE: Multiaxial CT images of the head were performed without the use of intravenous contrast. Comparison: None. Findings: The paranasal sinuses and mastoid air cells are clear. The calvarium and skull base are intact. The ventricles and sulci are within normal limits. There is no mass, hematoma, midline shift, or acute infarct. Impression: No acute intracranial abnormality. Electronically signed by: Charanjit Garcia M.D. 09/29/2016 9:52 AM Dictated Date/Time: 09/29/2016 9:52 AM The status of this report is Signed. Draft = Not yet reviewed or approved by Radiologist. Signed = Reviewed and approved by Radiologist. <AttendingPhy></AttendingPhy> <FamilyPhy>Katy Nath C.R.NBrookeP</FamilyPhy> < PrimaryPhy>Katy Nath C.R.N.P</PrimaryPhy> <UnitNumber>[id number]</ UnitNumber> <VisitNumber>[id number]</VisitNumber> <PatientName>ISAIRUBENS</ PatientName> <DateOfBirth>1960</DateOfBirth> <Location>C.EDB</Location> < ServiceDate>09/29/16</ServiceDate> <MNE>ESINDI</MNE> <OrderingPhy>Mireya Potts M.D.</OrderingPhy> <OrderingPhyMNE>f rep ord dr pemberton</OrderingPhyMNE> < DictatingPhyMNE>f rep dict dr pemberton</DictatingPhyMNE> <CCListMNE>f rep ct mne</ CCListMNE> <AdmittingPhyMNE>f pt admit dr pemberton</AdmittingPhyMNE> <AttendingPhyMNE >f pt attend dr pemberton</AttendingPhyMNE> <ConsultingPhyMNE>f pt consult dr pemberton</ConsultingPhyMNE> <FamilyPhyMNE>f pt fam dr pemberton</FamilyPhyMNE> <OtherPhyMNE>f pt other dr pemberton</OtherPhyMNE> < PrimaryPhyMNE>f pt prim care dr pemberton</PrimaryPhyMNE> <ReferringPhyMNE>f pt referring dr pemberton</ReferringPhyMNE> CXR normal Normal EKG Impression Assessment and Plan This is a 56 y/o female with hx of alcohol abuse presented to the hospital with abdominal pain X1week. Patient is admitted to Tele. 1. Abdominal pain - Most probably 2/2 to alcoholic hepatic cirrhosis - US of the gall bladder showed small amount of gallbladder sludge with mild gallbladder wall thickening. Trace free fluid. 8 mm common bile duct. These findings are unchanged compared to the prior study of 09/16/2015 - CT of Abdomen/Pelvis showed 1. Findings consistent with developing hepatic cirrhosis, fatty infiltration of liver, as well as a small amount of abdominal and pelvic ascites. 2. Mild gallbladder distention with a small amount of contained debris. 3. Mild prominence of the extra hepatic common bile duct at 7 mm also described previously. 4. Mild to moderate wall thickening of the colon consistent with a nonspecific colitis. No evidence for abscess collection or obstruction. - Patient will be NPO except meds - MRCP is ordered - pending - GI is consulted and will await for their recommendation 2. Alcoholic liver cirrhosis - Patient continues to abuse alcohol - CT of the abd showed developing hepatic cirrhosis, fatty infiltration of liver, as well as a small amount of abdominal and pelvic ascites - LFTs, total bili and INR (1.5) are elevated - Platelet count is low (42) - S/p 20meq of potassium and 2gm of Mg - CBC, CMP, INR tomorrow am - GI was consulted and will appreciate their recommendation - Continue to monitor in Tele 3. Alcohol abuse - Patient is currently on alcohol withdrawal protocol - Gabapentin and Ativan prn for withdrawal - Start her on Banana bag - B12 and folate are ordered - pending - Consider rehab inpt or upon d/c 4. Depression/Anxiety - C/w Citalopram 20mg 5. GERD - C/w Omeprazole 40mg BID 6. DVT Prophylaxis - Chemoprophylaxis is contraindicated given low platelets - SCDs 7. Code Status - Full code Level of Care Telemetry Advanced Directives Existing Living Will: No Existing Power of Penetration Tester: No Resuscitation Status FULL RESUSCITATION VTE Prophylaxis VTE Risk Assessment Done? Y/N: Yes Risk Level: Moderate Given or contraindicated: SCD's Note About 50minutes. Reviewed: Pt Seen/Exam by Me History Pt with c/o RUQ pain. She states that she has had RUQ pain in the past and was told that at some point she would likely need to have her gallbladder taken out. She continued to have pain over the last 10 days or so and then this AM she had an episode of emesis. She thought it might be her gallbladder, so she came to the ED for further evaluation. Pt states she has also felt that he abd is bloated over this time period. She states that after menopause she gained some abd fat "I used to have great abs until menopause", but this is different. She can always still push into her abd, but it is more firm. No SOB or chest pain. Pt initially stated to the resident that she usually drinks 2 glasses of wine or vodka a day. She said that she had 2 glasses of wine a day. After further questioning, pt then informed me that she started drinking yesterday after she was done with work, around 3-4pm. "I usually keep it rolling, if you know what I mean." She states that "I don't really keep track of how much I drink". She was in rehab last year after her hospitalization. She felt it was going well, however her insurance only covered the first 12 days and then she had to leave. She started drinking again after d/c. Pt states that she completed rehab in 1999 and was sober until 2010 or 2011, when she started drinking again. After discussion regarding her current condition, she states that she realizes she needs to quit again "but I didn't come here for detox". Denies hx of DTs or seizures. Pt states she has been bruising much more recently. The bruise on her face appeared after she was walking her dogs and was pulled too hard causing a fall. The bruise on her L wrist was related to a goat horn, although details are less clear (they have many animals on their property). Agree with HPI/ROS as noted. States she only smokes 1/2-1 cigarette per day at most, and at times goes for days without cigarettes. General Appearance: WD/WN, no apparent distress Eye Exam: bilateral eye other (jaundice) Respiratory: normal breath sounds, no respiratory distress Cardiovascular: normal peripheral pulses, regular rate, rhythm Gastrointestinal: non tender, soft, distended, other (negative Dorman's) Extremities: non-tender, no pedal edema Neurologic/Psychiatric: alert, oriented x 3 Skin Characteristics: warm/dry, other (bruising along the L side of her face and her L wrist) Assessment/Plan Resident Physician Supervision Note: I discussed the case with the resident and agree with the findings and plan as documented in the note. Any exceptions or clarifications are listed here: Pt with RUQ pain and distention likely related to alcoholic liver cirrhosis GB appearance on RUQ US is unchanged from 09/2015, pt with neg Dorman's sign Mild ascites, pancytopenia with bruising and autoanticoagulation are poor prognostic factors GI c/s pending I did discuss this quite frankly with pt and advised alcohol use be discontinued moving forward Pt is hesitant about inpt rehab after having insurance issues during her last attempt. She inquired about outpt resources. Pt would like do better with inpt , but will have CM work with her to determine options. WAS alcohol withdrawal and gabapentin protocol for prevention with PRN ativan Monitor on tele for early identification of withdrawal issues Declined nicotine patch Documented By: Leta Geiger
[2016-09-29 16:00] VITALS: O2SAT 98
[2016-09-29] MEDS ORDERED: GABAPENTIN 1200MG LOADING DOSE PO ONE (17:00)
[2016-09-29 20:00] VITALS: O2SAT 98
[2016-09-29] MEDS: PANTOprazole SOD 40 MG TAB PO SCH (21:32)
[2016-09-29] MEDS: GABAPENTIN 600MG Q6H DOSE PO SCH (21:32)
[2016-09-30] VITALS (9 sets, daily range): BP systolic 106–144; BP diastolic 64–87; PULSE 81–116; TEMP 36.6–37.1; O2SAT 91–98
[2016-09-30] MEDS: GABAPENTIN 600MG Q6H DOSE PO SCH (04:19)
[2016-09-30 06:10] LABS: HEMATOCRIT 25.4 % (37-47); MEAN CELL VOLUME 98.1 fL (80-100); MEAN CORPUSCULAR HEMOGLOBIN 35.5 pg (25-34); MEAN CORPUSCULAR HGB CONC 36.2 g/dl (32-36); RED BLOOD COUNT 2.59 M/uL (4.2-5.4); WHITE BLOOD COUNT 3.91 K/uL (4.8-10.8)
[2016-09-30 06:11] LABS: MEAN PLATELET VOLUME 10.1 fL (7.4-10.4); PLATELET COUNT 42 K/uL (130-400)
[2016-09-30 06:29] LABS: INR 1.4 (0.9-1.1); PARTIAL THROMBOPLASTIN RATIO 1.3; PROTHROMBIN TIME (PATIENT) 15.2 SECONDS (9.0-12.0)
[2016-09-30 06:44] LABS: BUN/CREATININE RATIO 8.8 (10-20); CALCIUM 8.1 mg/dl (8.5-10.1); CREATININE 0.69 mg/dl (0.60-1.20); MAGNESIUM 1.5 mg/dl (1.8-2.4); POTASSIUM 3.3 mmol/L (3.5-5.1)
[2016-09-30 06:47] LABS: ALB/GLOB RATIO 0.7 (0.9-2)
[2016-09-30] MEDS ORDERED: MAGNESIUM SULFATE 1GM / D5W 1 GM in PREMIXED IN D5W 100 ML IV ONE (07:30)
--- NOTE | 2016-09-30 08:12 | DIAGNOSTIC IMAGING REPORT ---
MRCP CLINICAL HISTORY: Right upper quadrant abdominal pain. Alcoholic cirrhosis. COMPARISON STUDY: Abdominal CT and abdominal ultrasound dated 09/29/2016. Abdominal ultrasound dated 09/16/2015. TECHNIQUE: Abdominal MRCP is performed utilizing various T2-weighted sequences in the axial and coronal planes. 3-D reformats are created and assessed. IV contrast was not administered for this examination. The examination is modestly degraded by motion artifact. FINDINGS: The gallbladder is distended and contains layering gallstones/biliary sludge. There is mild gallbladder wall thickening. No pericholecystic fluid is seen. There is mild central intrahepatic biliary ductal dilatation. The common bile duct is dilated and measures up to 9 mm. No intraluminal filling defects are identified to indicate choledocholithiasis. The pancreatic duct is normal in caliber. The liver is enlarged, measuring 21.5 cm in length. There is mild nodularity of the hepatic surface contour. A small volume of perihepatic and perisplenic ascites is observed. The spleen is normal in size. The pancreas is mildly atrophic but otherwise grossly unremarkable. The kidneys and adrenal glands are normal as imaged. No bowel obstruction is seen. Prominent lymph nodes are noted in the francisco hepatis. Gynecomastia is noted. IMPRESSION: 1. The gallbladder is distended. Layering gallstones/biliary sludge are identified within the gallbladder lumen. Gallbladder wall thickening is nonspecific and may be related to cirrhosis and ascites. Acute cholecystitis is not excluded. If there is clinical concern for acute cholecystitis then a nuclear hepatobiliary scan should be considered. 2. There is mild intra and extrahepatic biliary ductal dilatation. This is unchanged from the 09/16/2015 ultrasound examination. There is no convincing evidence of choledocholithiasis. 3. The liver is enlarged and demonstrates changes of cirrhosis. There is a small volume of abdominal ascites. Dictated: 09/30/2016 7:34 AM Transcribed: 09/30/2016 8:11 AM Fabiola Electronically signed by: Oracio Trinidad M.D. 09/30/2016 8:13 AM Dictated Date/Time: 09/30/2016 7:34 AM
[2016-09-30] MEDS: PANTOprazole SOD 40 MG TAB PO SCH ×2 (08:38→22:00)
[2016-09-30] MEDS: ASCORBIC ACID 500 MG TAB PO SCH (08:40)
[2016-09-30] MEDS: CITALOPRAM 20 MG TAB PO SCH (08:40)
[2016-09-30] MEDS: MULTIVITAMIN TAB PO SCH (08:40)
[2016-09-30] MEDS: MULTI-VITAMIN INFUSION INJ 10 ML, THIAMINE HCL INJ 100 MG, FoLIC ACID INJ 1 MG in SODIU... IV SCH (08:54)
[2016-09-30] MEDS ORDERED: CHOLECALCIFEROL 1000 INTER.UNIT TAB PO SCH (09:00)
[2016-09-30] MEDS: CHOLECALCIFEROL 1000 INTER.UNIT TAB PO SCH (09:47)
[2016-09-30] MEDS: LORAZEPAM 1 MG TAB PO PRN ×2 (09:52→15:40)
--- NOTE | 2016-09-30 11:41 | Family Medicine Progress Note ---
Progress Note Date of Service Sep 30, 2016. Subjective Pt evaluation today including: conversation w/ patient, physical exam, chart review, lab review The patient was seen and examined at bedside. No acute overnight events. Patient reports feeling tremulous, tachycardic with shakiness of her hands. At bedside, AWSS was assessed to be 8, and 2mg Ativan were given. Pt is NPO without meds. Has decreased appetite. Visible bleeding from lip was evident. Pt reports continued RUQ pain, cannot appropriately assess if her pain is worse or has improved from the previous day. Patient was asked whether inpatient or outpatient rehab was something she was interested in. Patient reports that she would like to know about cost and duration of treatment. I advised that someone would come speak to her about her options. Plan of care was described to the patient and all questions were answered. Constitutional: No chills, No fever, No sweats Respiratory: No cough, No shortness of breath, No sputum, No wheezing Cardiovascular: No chest pain Abdomen: + pain Objective Physical Exam General Appearance: WD/WN, no apparent distress Respiratory/Chest: chest non-tender, lungs clear, normal breath sounds, no respiratory distress Cardiovascular: no gallop, no JVD, no murmur, + tachycardia Abdomen: normal bowel sounds, non tender, soft Extremities: normal range of motion, + pertinent finding (Patient has ecchymosis over the left face and left arm. Patient has visible recent bleeding from her lip. Lower extremities had some signs of excorations from scratching. ) Neurologic/Psychiatric: no motor/sensory deficits, alert, normal mood/affect, oriented x 3 Assessment and Plan 56F with hx of alcohol abuse presented to the hospital with abdominal pain x 1week. Patient is found to have severe liver cirrhosis and was admitted to [facility]. Abdominal pain 2/2 to alcoholic hepatic cirrhosis - US of the gall bladder showed small amount of gallbladder sludge with mild gallbladder wall thickening. Trace free fluid. 8 mm common bile duct. These findings are unchanged compared to the prior study of 09/16/2015 - CT of Abdomen/Pelvis showed 1. Findings consistent with developing hepatic cirrhosis, fatty infiltration of liver, as well as a small amount of abdominal and pelvic ascites. 2. Mild gallbladder distention with a small amount of contained debris. 3. Mild prominence of the extra hepatic common bile duct at 7 mm also described previously. 4. Mild to moderate wall thickening of the colon consistent with a nonspecific colitis. No evidence for abscess collection or obstruction. - MRCP - If there is clinical concern for acute cholecystitis then a nuclear hepatobiliary scan should be considered. - GI is consulted and will await for their recommendation Alcoholic liver cirrhosis - Patient continues to abuse alcohol - CT of the abd showed developing hepatic cirrhosis, fatty infiltration of liver, as well as a small amount of abdominal and pelvic ascites - LFTs, total bili and INR (1.5) are elevated - Platelet count is low (42) - S/p 20meq of potassium and 2gm of Mg - CBC, CMP, INR tomorrow am - GI was consulted and will appreciate their recommendation - Continue to monitor in Tele Alcohol abuse - Patient is currently on alcohol withdrawal protocol. - Gabapentin and Ativan prn for withdrawal - c/w Banana bag - B12 and folate WNL -CM is consulting with patient on their recommendations. Depression/Anxiety - C/w Citalopram 20mg GERD - C/w Omeprazole 40mg BID DVT Prophylaxis - Chemoprophylaxis is contraindicated given low platelets - SCDs Code Status - Regular diet, Full code Level of Care Telemetry Advanced Directives Existing Living Will: No Existing Power of [employer] Manager: No Resuscitation Status FULL RESUSCITATION VTE Prophylaxis VTE Risk Assessment Done? Y/N: Yes Risk Level: Moderate Given or contraindicated: SCD's Resident Physician Supervision Note: I interviewed and examined the patient. Discussed with Dr. Walls and agree with findings and plan as documented in the note. Any exceptions or clarifications are listed here: None Documented By: Carl Peguero feeling about the same w abdominal pain feeling washed out. fatigued vitals noted see EMR gen - pleasant faitgued nad heent - nc at mmm lungs - unlabored no accessory muscles abd - soft nd nt no RUQ pain no guarding no rebound ext - no cyanosis MRCP noted abdominal pain - ?distended liver capsule vs biliary disease. certainly high risk for surgery so will want to confirm more clearly before working towards cholecystectomy. await further GI input, follow serial exams, follow sx. low threshold for HIDA EtOH abuse/withdrawal and cirrhosis - supportive care, thiamine, folate, benzos. encouraged cessation. frankly discussed severity of illness w pt pancytopenia - due to EtOH abuse DVT proph - pharmacologic contraindicated due to low plt Resident Involvement: Resident Care Provided Care Provided: Adult [facility] Medicine
[2016-09-30] MEDS: GABAPENTIN 600MG Q8H DOSE PO SCH ×2 (14:34→22:00)
[2016-10-01 03:46] VITALS: BP 123/70; PULSE 119; TEMP 37.1; O2SAT 97
[2016-10-01 06:03] LABS: HEMATOCRIT 24.2 % (37-47); MEAN CELL VOLUME 99.2 fL (80-100); MEAN CORPUSCULAR HEMOGLOBIN 34.4 pg (25-34); MEAN CORPUSCULAR HGB CONC 34.7 g/dl (32-36); RED BLOOD COUNT 2.44 M/uL (4.2-5.4); WHITE BLOOD COUNT 3.45 K/uL (4.8-10.8)
[2016-10-01] MEDS: GABAPENTIN 600MG Q8H DOSE PO SCH (06:07)
[2016-10-01 06:39] LABS: BUN/CREATININE RATIO 11.3 (10-20); CALCIUM 7.8 mg/dl (8.5-10.1); CREATININE 0.71 mg/dl (0.60-1.20); POTASSIUM 3.5 mmol/L (3.5-5.1)
[2016-10-01 07:20] VITALS: BP 142/82; PULSE 95; TEMP 36.9; O2SAT 97
[2016-10-01] MEDS: CITALOPRAM 20 MG TAB PO SCH (08:07)
[2016-10-01] MEDS: CHOLECALCIFEROL 1000 INTER.UNIT TAB PO SCH (08:07)
[2016-10-01] MEDS: MULTIVITAMIN TAB PO SCH (08:07)
[2016-10-01] MEDS: PANTOprazole SOD 40 MG TAB PO SCH ×2 (08:08→21:11)
[2016-10-01] MEDS: ASCORBIC ACID 500 MG TAB PO SCH (08:08)
[2016-10-01] MEDS: MULTI-VITAMIN INFUSION INJ 10 ML, THIAMINE HCL INJ 100 MG, FoLIC ACID INJ 1 MG in SODIU... IV SCH (08:13)
[2016-10-01 08:20] LABS: MEAN PLATELET VOLUME 11.4 fL (7.4-10.4); PLATELET COUNT 34 K/uL (130-400)
[2016-10-01 11:22] VITALS: BP 133/82; PULSE 96; TEMP 37; O2SAT 96
--- NOTE | 2016-10-01 14:52 | Gastrointestinal Consultation ---
Gastrointestinal Consultation Date of Consultation: Oct 01, 2016 Attending Physician: Dr. Peguero Consulting Physician: Autumn Lozano PA-C Reason for Consultation: Cirrhosis, RUQ pain History of Present Illness Patient is a 56 year old female who presents to the ER with significant alcohol use and abdominal pain worsening x 1 week. She reports that while this pain has been ongoing for almost 1 year, it did worsen over the past 1 week. She reports that during her last hospitalization she was told that her gallbladder needed to be removed. She reports she was supposed to follow-up with a surgeon but did not do that. Due to her LFTs & fatty liver disease, along with her history of Adames's Esophagus, she was to follow-up with GI as an outpatient. She did not follow-through with these recommendations. She was admitted on the . She had an alcohol level of 389. She reports persistent alcohol use---typically wine & vodka. She reports compliance with her Omeprazole 20 mg BID. She denies changes in her bowels. She cannot recall the date of her last EGD. She recalls having a colonoscopy at age 49 for screening for colorectal cancer. She cannot quantify her alcohol consumption. She reports she was sober for 11 years, but has since continued drinking. She denies family history of liver disease. She reports a social history consistent with family members struggling with alcohol abuse as well. 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 She has continued to smoke. She denies NSAID use. She reports she moves her bowels twice daily. She has a history of macrocytic anemia. Her H/H is presently 8.4/24.2. MCV was 100.7 on admission. Her BUN/Cr is within normal limits at 8/0.71. Her AST is elevated at 228 and ALT is 41. Her alk phos is elevated at 220. Her INR ranges between 1.4-1.5. Her total bili is 3.3 with a direct bili of 2.4. An US of the abdomen was unchanged from 2016--indicating sludge with thickening. A CXR was negative. A CT of the abdomen/pelvis with IV contrast indicated developing cirrhosis and fatty liver. There was a small amount of ascites noted. There was gallbladder distention with a small amount of debris. Questionable findings of a nonspecific colitis was noted, but again there was no oral contrast. MRCP indicates gallstones, sludge, and thickening of the gallbladder. There was no evidence of choledocholithiasis. Acute cholecystitis could not be ruled out so a HIDA scan was recommended. Past Medical/Surgical History Medical Problems: (1) Alcohol dependence Status: Acute (2) Alcohol intoxication Status: Acute (3) Cholelithiasis Status: Acute (4) Common bile duct dilatation Status: Acute Family History Cancer Diabetes mellitus Gallbladder disease Hypertension Lung disease Social History Smoking Status: Current Every Day Smoker Alcohol Use: heavy Drug Use: none Marital Status: Housing Status: lives with family Occupation Status: employed Allergies Coded Allergies: No Known Allergies (Verified , 09/15/15) Current Medications Home Meds and Scripts Medications Dose Route/Sig Max Daily Dose Days Date Category Calcium Unknown Strength Tab 1 Tab PO DAILY 09/29/16 Reported Vitamin D3 (Cholecalciferol) Unknown Strength Tab 1 Tab PO DAILY 09/29/16 Reported Multivitamin (Multivitamins) Tab 1 Tab PO DAILY 09/29/16 Reported Citalopram Hydrobromide (Citalopram) Unknown Strength Tab 1 Tab PO DAILY 09/29/16 Reported Chlordiazepoxide HCl (Chlordiazepoxide) 10 Mg Cap 10 Mg PO DAILY 09/29/16 Reported Prilosec (Omeprazole) 40 Mg Cap 1 Cap PO BID 09/29/16 Reported Review of Systems Constitutional: No chills, No fever Eyes: No worsening of vision Respiratory: No cough, No shortness of breath Cardiac: No chest pain Abdomen: + pain (RUQ, some LLQ), No GI bleeding, No constipation, No diarrhea, No nausea, No vomiting Musculoskeletal: No joint pain Psych: + substance abuse Heme: + abnormal bleeding/bruising Skin: No jaundice, No problem reported Physical Exam Date Time Temp Pulse Resp B/P Pulse Ox O2 Delivery O2 Flow Rate FiO2 10/01/16 12:20 Room Air 10/01/16 11:22 37.0 96 16 133/82 96 Room Air 10/01/16 08:00 Room Air 10/01/16 07:20 36.9 95 16 142/82 97 Room Air 10/01/16 04:00 Room Air 10/01/16 03:46 37.1 119 24 123/70 97 Room Air 10/01/16 00:00 Room Air 09/30/16 23:39 36.8 81 18 130/72 91 Room Air 09/30/16 20:08 37.1 116 16 144/87 97 09/30/16 20:00 Room Air 09/30/16 16:10 Room Air 09/30/16 15:47 37.0 111 18 142/86 98 General Appearance: WD/WN, no apparent distress Eyes: normal inspection, PERRL Neck: + pertinent finding (ecchymosis on left cheek) Respiratory/Chest: lungs clear, normal breath sounds Cardiovascular: regular rate, rhythm Abdomen: normal bowel sounds, non tender, soft Extremities: non-tender Neurologic/Psych: alert, oriented x 3 Skin: normal color Laboratory Results Last 24 Hours Test 10/01/16 05:45 White Blood Count 3.45 K/uL Red Blood Count 2.44 M/uL Hemoglobin 8.4 g/dL Hematocrit 24.2 % Mean Corpuscular Volume 99.2 fL Mean Corpuscular Hemoglobin 34.4 pg Mean Corpuscular Hemoglobin Concent 34.7 g/dl RDW Standard Deviation 58.7 fL RDW Coefficient of Variation 16.2 % Platelet Count 34 K/uL Mean Platelet Volume 11.4 fL Sodium Level 141 mmol/L Potassium Level 3.5 mmol/L Chloride Level 106 mmol/L Carbon Dioxide Level 26 mmol/L Anion Gap 9.0 mmol/L Blood Urea Nitrogen 8 mg/dl Creatinine 0.71 mg/dl Est Creatinine Clear Calc Drug Dose 72.3 ml/min Estimated GFR () 109.6 Estimated GFR (Non- 94.6 BUN/Creatinine Ratio 11.3 Random Glucose 82 mg/dl Calcium Level 7.8 mg/dl Total Bilirubin 3.3 mg/dl Direct Bilirubin 2.4 mg/dl Aspartate Amino Transf (AST/SGOT) 228 U/L Alanine Aminotransferase (ALT/SGPT) 41 U/L Alkaline Phosphatase 220 U/L Total Protein 6.6 gm/dl Albumin 2.8 gm/dl Impression Patient is a 56 year old female with RUQ abdominal pain with chronic RUQ pain that worsened over the past week since her most recent episode of binge drinking. She has chronic gallbladder issues and reports she was instructed in 2016 to have her gallbladder removed. Since 2016, she has also developed findings of cirrhosis on imaging (progression from fatty liver). Plan 1) Can order HIDA without EF. For further evaluation of RUQ pain and gallbladder abnormalities, would recommend primary team defer to surgery, though patient is not an ideal candidate for a cholecystectomy at the present time. 2) Continue BID PPI therapy with Protonix 40 mg BID. 3) Could give Carafate 1 gm four times daily before meals and at bedtime in the event her symptoms are related to an alcohol induced gastritis. 4) Further work-up for cirrhosis to be performed as an outpatient including EGD , colonoscopy, AFP/imaging study every 6 months for HCC surveillance, hepatitis studies, GAL, AMA, ASMA, and continued screening for signs/symptoms of hepatic encephalopathy. 5) Discussed that the most important GI intervention at present is abstinence from alcohol as it is a known liver toxin that will worsen her cirrhosis. Further conversation about alcohol rehab deferred to primary team and manager social responsibility. 6) Supportive care per primary team. Thank you for allowing us to participate in the care of this patient. If you should have any further questions or concerns, do not hesitate to contact us. Agree with SHENG Carl as above Abd: Soft, NT, ND, +BS Stressed need for complete abstinence from alcohol Continue current therapy
--- NOTE | 2016-10-01 15:05 | Family Medicine Progress Note ---
Progress Note Date of Service Oct 01, 2016. Subjective Pt evaluation today including: conversation w/ patient, physical exam, chart review, lab review The patient was seen and examined at bedside. No acute overnight events. Patient reports feeling better, denies tremors and anxiety. Pt still reports continued abdominal pain. Last dose of Ativan was 09/30/16 at 3pm. Pt denies receiving information about inpatient vs outpatient rehab counselling. Plan of care was described to the patient and all questions were answered. Constitutional: No chills, No fever, No sweats Respiratory: No cough, No shortness of breath, No sputum, No wheezing Cardiovascular: No chest pain Abdomen: + pain, (denies diarrhea, denies constipation. Had a brown non bloody BM in hospital) Objective Physical Exam Notes: General Appearance: WD/WN, no apparent distress Respiratory/Chest: chest non-tender, lungs clear, normal breath sounds, no respiratory distress Cardiovascular: no gallop, no JVD, no murmur, + tachycardia Abdomen: normal bowel sounds, non tender, soft + Tender to deep palpation of the left upper and right upper quadrants. Extremities: normal range of motion, + pertinent finding (improved ecchymosis of left lift, no bleeding from the lip) Neurologic/Psychiatric: no motor/sensory deficits, alert, normal mood/affect, oriented x 3 Assessment and Plan 56F with hx of longstand alcohol abuse (sober from [id number]) presented to the hospital with abdominal pain x 1week. Patient is found to have severe liver cirrhosis and was admitted to Telemetry. Pt continues to have abdominal pain. As per GI recommendations will add Cerafate and order HIDA scan. Abdominal pain 2/2 to alcoholic hepatic cirrhosis - US of the gall bladder showed small amount of gallbladder sludge with mild gallbladder wall thickening. Trace free fluid. 8 mm common bile duct. These findings are unchanged compared to the prior study of 09/16/2015 - CT of Abdomen/Pelvis showed hepatic cirrhosis, fatty liver, abdominal and pelvic ascites, gallbladder distension, non specific colitis. - MRCP - If there is clinical concern for acute cholecystitis then a nuclear hepatobiliary scan should be considered. - Per GI, will order HIDA without EF. - Carafate 1 gm four times daily before meals and at bedtime in the event her symptoms are related to an alcohol induced gastritis. - Further work-up for cirrhosis to be performed as an outpatient including EGD, colonoscopy, AFP/imaging study every 6 months for HCC surveillance, hepatitis studies, GAL, AMA, ASMA, and continued screening for signs/symptoms of hepatic encephalopathy - Most important GI intervention at present is abstinence from alcohol as it is a known liver toxin that will worsen her cirrhosis Alcoholic liver cirrhosis - Recent 6 year history of alcohol abuse. - CT of the abd showed developing hepatic cirrhosis, fatty infiltration of liver, as well as a small amount of abdominal and pelvic ascites. - LFTs, total bili and INR (1.5) are elevated - Platelet count is low (34<--42) - S/p 20meq of potassium and 2gm of Mg - Continue to monitor in Tele Alcohol abuse - Patient is currently on alcohol withdrawal protocol. - Gabapentin and Ativan prn for withdrawal - c/w Banana bag - B12 and folate WNL - CM is consulting with patient on their recommendations. Depression/Anxiety - C/w Citalopram 20mg GERD - C/w Omeprazole 40mg BID DVT Prophylaxis - Chemoprophylaxis is contraindicated given low platelets - SCDs Code Status - Regular diet, Full code Resident Physician Supervision Note: I interviewed and examined the patient. Discussed with Dr. Walls and agree with findings and plan as documented in the note. Any exceptions or clarifications are listed here: None Documented By: Carl Peguero feeling about the same. no new sx. updated . answered all questions to the best of my ability. ros otherwise negative vitals noted, nad breathing unlabored no icterus RUQ pain - biliary / gallbladder vs distention of liver capsule from EtOH mediated hepatitis - favor liver capsule stretch but definitely need to eval as gallbladder related cirrhosis/etoh abuse/etoh withdrawal - improving. continue ciwa scale triggered treatment, continue encourage cessation otherwise as above pancytopenia due to above Resident Involvement: Resident Care Provided Care Provided: Adult Hospital Medicine
[2016-10-01 15:53] VITALS: BP 155/93; PULSE 95; TEMP 37; O2SAT 98
[2016-10-01] MEDS: SUCRALFATE 1 GM/10 ML UDC PO SCH ×2 (16:54→21:11)
[2016-10-01] MEDS: GABAPENTIN 600MG Q12H DOSE PO SCH (18:30)
[2016-10-01 19:53] VITALS: BP 137/81; PULSE 96; TEMP 36.9; O2SAT 98
[2016-10-01 23:46] VITALS: BP 150/95; PULSE 104; TEMP 37; O2SAT 95
[2016-10-02] MEDS: GABAPENTIN 600MG Q12H DOSE PO SCH (05:41)
[2016-10-02] MEDS: SUCRALFATE 1 GM/10 ML UDC PO SCH ×3 (05:41→16:35)
[2016-10-02 07:09] VITALS: BP 123/74; PULSE 97; TEMP 37; O2SAT 96
[2016-10-02] MEDS: MULTI-VITAMIN INFUSION INJ 10 ML, THIAMINE HCL INJ 100 MG, FoLIC ACID INJ 1 MG in SODIU... IV SCH (07:44)
[2016-10-02] MEDS: CITALOPRAM 20 MG TAB PO SCH (07:45)
[2016-10-02] MEDS: PANTOprazole SOD 40 MG TAB PO SCH (07:45)
[2016-10-02] MEDS: MULTIVITAMIN TAB PO SCH (07:45)
[2016-10-02] MEDS: ASCORBIC ACID 500 MG TAB PO SCH (07:46)
[2016-10-02] MEDS: CHOLECALCIFEROL 1000 INTER.UNIT TAB PO SCH (07:46)
[2016-10-02 07:48] LABS: BUN/CREATININE RATIO 7.5 (10-20); CALCIUM 8.4 mg/dl (8.5-10.1); CREATININE 0.75 mg/dl (0.60-1.20); POTASSIUM 3.3 mmol/L (3.5-5.1)
[2016-10-02 07:52] LABS: HEMATOCRIT 26.3 % (37-47); MEAN CELL VOLUME 101.5 fL (80-100); MEAN CORPUSCULAR HEMOGLOBIN 35.1 pg (25-34); MEAN CORPUSCULAR HGB CONC 34.6 g/dl (32-36); MEAN PLATELET VOLUME 12.1 fL (7.4-10.4); PLATELET COUNT 43 K/uL (130-400); RED BLOOD COUNT 2.59 M/uL (4.2-5.4); WHITE BLOOD COUNT 3.35 K/uL (4.8-10.8)
--- NOTE | 2016-10-02 10:20 | Gastroenterology Progress Note ---
Progress Note Date of Service: Oct 02, 2016 Subjective Pt evaluation today including: conversation w/ patient, physical exam, lab review, review of studies Patient is a 56 yo female who is presently hospitalized with RUQ pain. She reports some improvement of her discomfort since yesterday. She reports that she has no new symptoms since 10/01/16. She denies fevers, chills, sweats, diarrhea, or constipation. She offers no further physical complaints at present. She is still deciding whether alcohol rehab is in her future. She is agreeable to outpatient follow-up with GI at the present time. Review of Systems Constitutional: No chills, No fever Respiratory: No cough, No shortness of breath Cardiac: No chest pain Abdomen: + pain, No diarrhea, No nausea, No vomiting Musculoskeletal: No joint pain Heme: No problem reported Skin: No problem reported Medications Current Inpatient Medications Medications (Trade) Dose Ordered Sig/Veena Route Start Time Stop Time Status Last Admin Dose Admin Ioversol (Optiray 320) 125 ml UD PRN IV 09/29/16 10:45 10/03/16 10:44 Multivitamins (Multivitamin Tab) 1 tab DAILY PO 09/30/16 09:00 10/30/16 08:59 10/02/16 07:45 1 TAB Ascorbic Acid (Vitamin C Tab) 500 mg DAILY PO 09/30/16 09:00 10/30/16 08:59 10/02/16 07:46 500 MG Pantoprazole Sodium 40 mg 40 mg BID PO 09/29/16 21:00 10/29/16 20:59 10/02/16 07:45 40 MG Multivitamins/ Thiamine HCl/ Folic Acid/Sodium Chloride (Mvi Infusion Inj/Vitamin B-1 Inj/Folvite Inj/ Nss 1000ml) 1,011.2 ml @ 125 mls/ hr DAILY@0800 IV 09/30/16 08:00 10/30/16 07:59 10/02/16 07:44 125 MLS/HR Citalopram Hydrobromide (celeXA TAB) 20 mg QAM PO 09/30/16 09:00 10/30/16 08:59 10/02/16 07:45 20 MG Lorazepam (Ativan Tab) 0-3 MG ATIVAN BASED... UD PRN PO 09/29/16 14:15 10/29/16 14:14 09/30/16 15:40 1 MG Gabapentin (Neurontin Tab) 600 mg Q24H PO 10/03/16 06:00 10/03/16 06:01 Cholecalciferol (Vitamin D Tab) 1,000 inter.unit DAILY PO 09/30/16 09:00 10/30/16 08:59 10/02/16 07:46 1,000 INTER.UNIT Sucralfate (Carafate Susp) 1 gm ACHS PO 10/01/16 16:30 10/31/16 16:29 10/02/16 07:46 1 GM Objective Vital Signs Date Time Temp Pulse Resp B/P Pulse Ox O2 Delivery O2 Flow Rate FiO2 10/02/16 07:45 Room Air 10/02/16 07:09 37.0 97 18 123/74 96 Room Air 10/02/16 00:01 Room Air 10/01/16 23:46 37.0 104 18 150/95 95 Room Air 10/01/16 20:00 Room Air 10/01/16 19:53 36.9 96 16 137/81 98 Room Air 10/01/16 16:00 Room Air 10/01/16 15:53 37.0 95 18 155/93 98 Room Air 10/01/16 12:20 Room Air 10/01/16 11:22 37.0 96 16 133/82 96 Room Air Physical Exam General Appearance: WD/WN, no apparent distress Eyes: normal inspection, PERRL ENT: hearing grossly normal Respiratory/Chest: chest non-tender, lungs clear Cardiovascular: regular rate, rhythm Abdomen: normal bowel sounds, soft (RUQ), + tenderness Extremities: non-tender Neurologic/Psych: alert, oriented x 3 Skin: normal color Laboratory Results Last 24 Hours Test 10/02/16 06:48 White Blood Count 3.35 K/uL Red Blood Count 2.59 M/uL Hemoglobin 9.1 g/dL Hematocrit 26.3 % Mean Corpuscular Volume 101.5 fL Mean Corpuscular Hemoglobin 35.1 pg Mean Corpuscular Hemoglobin Concent 34.6 g/dl RDW Standard Deviation 58.4 fL RDW Coefficient of Variation 15.9 % Platelet Count 43 K/uL Mean Platelet Volume 12.1 fL Sodium Level 139 mmol/L Potassium Level 3.3 mmol/L Chloride Level 105 mmol/L Carbon Dioxide Level 25 mmol/L Anion Gap 9.0 mmol/L Blood Urea Nitrogen 6 mg/dl Creatinine 0.75 mg/dl Est Creatinine Clear Calc Drug Dose 68.4 ml/min Estimated GFR () 102.6 Estimated GFR (Non- 88.5 BUN/Creatinine Ratio 7.5 Random Glucose 89 mg/dl Calcium Level 8.4 mg/dl Total Bilirubin 3.6 mg/dl Direct Bilirubin 2.6 mg/dl Aspartate Amino Transf (AST/SGOT) 164 U/L Alanine Aminotransferase (ALT/SGPT) 34 U/L Alkaline Phosphatase 232 U/L Total Protein 6.9 gm/dl Albumin 2.7 gm/dl Assessment and Plan Patient is a 56 yo female with RUQ pain, abnormal imaging of the gallbladder, & a new diagnosis of cirrhosis. Patient also carries a diagnosis of Adames's Esophagus. 1) Awaiting HIDA scan. 2) Continue Protonix 40 mg BID. 3) Continue Carafate 1 gm four times daily before meals and at bedtime for 10 days. 4) Further work-up for cirrhosis to be performed as an outpatient including EGD , colonoscopy, AFP/imaging study every 6 months for HCC surveillance, hepatitis studies, GAL, AMA, ASMA, and continued screening for signs/symptoms of hepatic encephalopathy. 5) Again reiterate that alcohol abstinence is of utmost importance as it is a known liver toxin that will worsen her cirrhosis. Further conversation about alcohol rehab deferred to primary team and hospital social worker. 6) Supportive care per primary team. Thank you for allowing us to participate in the care of this patient. If you should have any further questions or concerns, do not hesitate to contact us. Agree with SHENG Carl as above Abd: Soft, tender throughout, ND, +BS HIDA scan negative Continue current therapy
--- NOTE | 2016-10-02 10:44 | DIAGNOSTIC IMAGING REPORT ---
NUCLEAR MEDICINE HEPATOBILIARY SCAN HISTORY: Right upper quadrant abdominal pain. COMPARISON: Hepatobiliary scan 09/19/2015. TECHNIQUE: Immediately following the intravenous administration of 5.5 mCi Tc-99m Choletec, dynamic anterior abdominal imaging was performed. FINDINGS: Uniform hepatic tracer accumulation is shown. Prompt intrahepatic biliary excretion is seen. The gallbladder, common bile duct, and small bowel are all visualized by 50 minutes. This appearance represents the normal sequence of biliary excretion. IMPRESSION: 1. No evidence for cystic duct obstruction. Electronically signed by: Chang Dodson M.D. 10/02/2016 10:43 AM Dictated Date/Time: 10/02/2016 10:41 AM
[2016-10-02 15:09] VITALS: BP 137/80; PULSE 89; TEMP 36.6; O2SAT 97
[2016-10-02] MEDS ORDERED: MoRPHine SULFATE 2 MG/ML CARP IV STA (15:47)
[2016-10-02] MEDS ORDERED: POTASSIUM CHLORIDE 10 MEQ TABCR PO STA (15:53)
[2016-10-02] MEDS ORDERED: MoRPHine SULFATE 2 MG/ML CARP IV PRN (16:00)
--- NOTE | 2016-10-02 16:00 | Family Medicine Progress Note ---
Progress Note Date of Service Oct 02, 2016. Subjective Pt evaluation today including: conversation w/ patient, physical exam, chart review, lab review The patient was seen and examined at bedside. No acute overnight events. Patient still reports abdominal pain, however she feels that it has improved since yesterday. She reports talking to the family service caseworker and would like outpatient AA treatment vs inpatient because it will be cheaper. Patient is resting comfortably in bed. Eating and urinating well. Plan of care was described to the patient and all questions were answered. ROS: Pt denies fevers, chills, SOB, chest pain, tremors, anxiety, diaphoresis, hallucinations, SI. Objective Physical Exam General Appearance: WD/WN, no apparent distress, + pertinent finding Respiratory/Chest: chest non-tender, lungs clear, normal breath sounds, no respiratory distress, no accessory muscle use Cardiovascular: regular rate, rhythm, no edema, no gallop, no JVD, no murmur Abdomen: + pertinent finding (Pt has mild tenderness on deep palpation of the LLQ and RLQ. ) Extremities: normal range of motion, non-tender, normal inspection, no pedal edema, no calf tenderness Neurologic/Psychiatric: alert, normal mood/affect, oriented x 3 Skin: + pertinent finding (resolving ecchymosis over the face and left arm, improved from yesterday. ) Assessment and Plan 56F with hx of longstand alcohol abuse (sober from 9553-1217) presented to the hospital with abdominal pain x 1week. Patient is found to have severe liver cirrhosis and was admitted to Telemetry. Pt continues to have abdominal pain. As per GI recommendations will add Cerafate. HIDA scan showed no evidence of bile duct obstruction. Abdominal pain 2/2 to alcoholic hepatic cirrhosis - US of the gall bladder showed small amount of gallbladder sludge with mild gallbladder wall thickening. Trace free fluid. 8 mm common bile duct. These findings are unchanged compared to the prior study of 09/16/2015 - CT of Abdomen/Pelvis showed hepatic cirrhosis, fatty liver, abdominal and pelvic ascites, gallbladder distension, non specific colitis. - MRCP - If there is clinical concern for acute cholecystitis then a nuclear hepatobiliary scan should be considered. - Per GI, will order HIDA without EF. - Carafate 1 gm four times daily before meals and at bedtime in the event her symptoms are related to an alcohol induced gastritis. - Further work-up for cirrhosis to be performed as an outpatient including EGD, colonoscopy, AFP/imaging study every 6 months for HCC surveillance, hepatitis studies, GAL, AMA, ASMA, and continued screening for signs/symptoms of hepatic encephalopathy - Most important GI intervention at present is abstinence from alcohol as it is a known liver toxin that will worsen her cirrhosis HIDA Scan - No evidence of bile duct obstruction. Alcoholic liver cirrhosis - Recent 6 year history of alcohol abuse. - CT of the abd showed developing hepatic cirrhosis, fatty infiltration of liver, as well as a small amount of abdominal and pelvic ascites. - LFTs, total bili and INR (1.5) are elevated - Platelet count is slowly improving (43<--34<--42) - Low K+: supplement with 20meq daily of KCl. - Continue to monitor in Tele Alcohol abuse - Patient is currently on alcohol withdrawal protocol. - Gabapentin and Ativan prn for withdrawal - c/w Banana bag - B12 and folate WNL - CM is consulting with patient on their recommendations. Depression/Anxiety - C/w Citalopram 20mg GERD - C/w Omeprazole 40mg BID DVT Prophylaxis - Chemoprophylaxis is contraindicated given low platelets - SCDs Code Status - Regular diet, Full code Resident Physician Supervision Note: I interviewed and examined the patient. Discussed with Dr. Walls and agree with findings and plan as documented in the note. Any exceptions or clarifications are listed here: None Documented By: Carl Peguero feeling better wants to go home. explained RUQ pain likely from stretched liver capsule. explained pain control - not taking apap or nsaids. discussed meds - she notes narcotics really sedate her - we agreed trial of tramadol ( discussed could still be sedating, discussed seizure risk - although she's never had seizures). extensive discussion on cirrhosis - refraining from drinking, following labs, hopeful for improvement. discussed back pain - appearing biomechanical - discussed exercises, treatments, and if needed manual medicine. raymond noted, labs, HIDA noted nad, breathing unlabored ongoing mild scleral icterus RUQ Pain - liver capsule stretch. stable for home on tramadol. cirrhosis - refrain from drinking, shows some signs that hopefully mean she can have recovery of some liver function biomechanical back pain stable for home >30mins Resident Involvement: Resident Care Provided Care Provided: Adult [facility] Medicine
[2016-10-02] MEDS ORDERED: ULT50X PO (18:25)
[2016-10-02] MEDS ORDERED: FOLI1TAB7 PO (18:25)
[2016-10-02] MEDS ORDERED: THM100 PO (18:25)
--- NOTE | 2016-10-02 18:32 | Discharge Instructions ---
Discharge Instructions Date of Service Oct 02, 2016. Admission Reason for Admission: Alcoholic Cirrhosis Of Liver, Right Upper Quadrant Discharge Discharge Diagnosis / Problem: right upper abdominal pain likely from stretched liver capsule Discharge Goals Goal(s): Diagnostic testing, Therapeutic intervention Activity Recommendations Activity Limitations: resume your previous activity . Instructions / Follow-Up Instructions / Follow-Up your right upper abdominal pain appears to have been due to stretch on your liver capsule. we of course were worried about your gallbladder - the MRI showed swelling, but cirrhosis can lead to swelling of the gallbladder wall. the HIDA scan looks more at function - and things looked very normal. since your liver enzymes were up, this shows a degree of an inflaed liver, which can cause pain in the same area due to stretch on the liver capsule (the "saran wrap that surrounds the liver") ---obviously, refrain from any alcohol intake ---use the tramadol for pain (it's a "pseudonarcotic" - as we discussed, it's possible that it will be sedating as the hydrocodone was, but it might not be quite as sedating - since you get so sedated with the hydrocodone, definitely use with caution, however) ---don't use tylenol or any anti-inflammatories. ---expect things to take a week or two to improve cirrhosis ---your labs certainly fit with a dysfunctional liver, but in a "good" way, the fact that your liver can still be inflamed shows that there are still viable cells working. on imaging, the liver did look somewhat nodular (fitting with cirrhosis) on the MRI, but mostly looked like a fatty liver (from alcohol intake ) on ultrasound. the MRI would be the more accurate picture of the two - but the bottom line is that while your liver is in trouble, it doesn't appear to be at the point of true end stage liver disease. the liver is a pretty remarkable organ, if you're able to stay away from alcohol, things should at worst stabilize, and at best show good improvement. ---we'd want the team at [facility] to check labs (CBC, CMP, PT/INR) weekly for the next ~4 weeks or so to follow your numbers for stability, then depending on what they're seeing, hopefully the interval between lab checks can be spread out further. the goal would be to hopefully see your numbers improve as your body heals Current Hospital Diet Patient's current hospital diet: Regular Diet Discharge Diet Recommended Diet: Regular Diet Pending Studies Studies pending at discharge: no Medical Emergencies . Who to Call and When: Medical Emergencies: If at any time you feel your situation is an emergency, please call 911 immediately. . Non-Emergent Contact Non-Emergency issues call your: Primary Care Provider . . "Provider Documentation" section prepared by Carl Peguero. VTE Core Measure Inpt VTE Proph given/why not?: SCD's, Contraindicated (pharmacologic contraindicated due to low platelets)
--- NOTE | 2016-10-02 18:38 | Discharge Summary ---
Discharge Summary Date of Service Oct 02, 2016. Discharge Summary Admission Date: Sep 29, 2016 at 13:43 Discharge Date: Oct 02, 2016 Discharge Disposition: Home Principal Diagnosis: Alcoholic Cirrhosis Medication Reconciliation New Medications: Folic Acid (Folvite) 1 Mg Tab 1 MG PO DAILY, #30 TAB Thiamine HCl (Vitamin B-1) 100 Mg Tab 100 MG PO DAILY, #30 TAB Tramadol HCl (Tramadol HCl) 50 Mg Tab 1 TAB PO Q8 PRN for Pain, #20 TAB Continued Medications: Calcium (Calcium) Unknown Strength Tab 1 TAB PO DAILY Chlordiazepoxide (Chlordiazepoxide HCl) 10 Mg Cap 10 MG PO DAILY Cholecalciferol (Vitamin D3) Unknown Strength Tab 1 TAB PO DAILY Citalopram (Citalopram Hydrobromide) Unknown Strength Tab 1 TAB PO DAILY Multivitamin (Multivitamin) Tab 1 TAB PO DAILY Omeprazole (Prilosec) 40 Mg Cap 1 CAP PO BID Discharge Exam The patient was seen and examined at bedside. No acute overnight events. Patient still reports abdominal pain, however she feels that it has improved since yesterday. She reports talking to the counseling case manager and would like outpatient AA treatment vs inpatient because it will be cheaper. Patient is resting comfortably in bed. Eating and urinating well. Plan of care was described to the patient and all questions were answered. ROS: Pt denies fevers, chills, SOB, chest pain, tremors, anxiety, diaphoresis, hallucinations, SI. Physical Exam General Appearance: WD/WN, no apparent distress, + pertinent finding Respiratory/Chest: chest non-tender, lungs clear, normal breath sounds, no respiratory distress, no accessory muscle use Cardiovascular: regular rate, rhythm, no edema, no gallop, no JVD, no murmur Abdomen: + pertinent finding (Pt has mild tenderness on deep palpation of the LLQ and RLQ. ) Extremities: normal range of motion, non-tender, normal inspection, no pedal edema, no calf tenderness Neurologic/Psychiatric: alert, normal mood/affect, oriented x 3 Skin: + pertinent finding (resolving ecchymosis over the face and left arm, improved from yesterday. ) Hospital Course 56F with history of longstanding alcohol abuse (sober from [id number]) presented to the hospital with abdominal pain x 1week. Patient is found to have severe liver cirrhosis and was admitted to Telemetry. Pt continued to have abdominal pain during her hospital stay. As per GI recommendations we added Cerafate to decrease pain from possible alcohol gastritis. CT of the Abdomen and Pelvis showed hepatic cirrhosis, fatty liver, abdominal and pelvic ascites, gallbladder distension, non specific colitis. MRCP was non diagnostic. HIDA scan showed no evidence of bile duct obstruction. During her hospital stay Caitlin's liver enzymes continued to improve. Labs were remarkable for anemia, leukopenia and thrombocytopenia 2/2 to chronic alcohol consumption. The patient was given educational materials for rehabilitation and various support groups. While in the hospital the patient's medication for her anxiety and GERD to continued. The patient was discharged in good condition. Total Time Spent: Greater than 30 minutes This includes examination of the patient, discharge planning, medication reconciliation, and communication with other providers. Discharge Instructions Please refer to the electronic Patient Visit Report (Discharge Instructions) for additional information. Follow-Up Please follow up with your PCP within one week. We also recommend counselling and regular meeting with your local AA chapter. Resources have been provided for your during your stay and we encourage you to follow up with these services. Please abstain from alcohol consumption. Additional Copies To Katy Nath C.R.N.P Resident Involvement: Resident Care Provided Care Provided: Adult Hospital Medicine
[2016-10-02 18:39] VITALS: BP 137/80; PULSE 89; TEMP 36.6; O2SAT 97
[2016-10-02] MEDS ORDERED: POTASSIUM CHLORIDE 10 MEQ TABCR PO SCH (21:00)
[2016-10-03] MEDS ORDERED: GABAPENTIN 600MG X1 DOSE PO SCH (06:00)
[2016-12-16] MEDS ORDERED: CALC625T13 PO (08:06)
[2016-12-16] MEDS ORDERED: MULT-506 PO (08:06)
[2016-12-16] MEDS ORDERED: PROB1TAB16 PO (08:06)
[2016-12-16] MEDS ORDERED: CHOL1000 PO (08:06)
[2016-12-16] MEDS ORDERED: CHLO10CA7 PO (08:06)
[2016-12-16] MEDS ORDERED: CITA20TA4 PO (08:06)
[2016-12-16] MEDS ORDERED: FOLI1TAB7 PO (08:06)
[2016-12-16] MEDS ORDERED: HYDR-3126 PO (08:06)
[2016-12-16] MEDS ORDERED: OMEP40CA41 PO (08:06)
[2016-12-16] MEDS ORDERED: VITAMIN B1 PO (08:06)
[2016-12-16] MEDS ORDERED: CALC-393 PO (08:06)
== END 2016-10-02 21:23 | disposition home or self-care (01) | DRG 433 ==
LOC: ENRESERVDT → ENRESERVTM → C.EDB 08:15 → C.MED 13:43
PROVIDERS: ADMIT Family Medicine; ATTEND Family Medicine
DX: K70.31 Alcoholic cirrhosis of liver with ascites (principal); D61.818 Other pancytopenia; F10.239 Alcohol dependence with withdrawal, unspecified; Z83.3 Family history of diabetes mellitus; Z82.49 Family history of ischemic heart disease and other diseases of the circulatory system; F32.9 Major depressive disorder, single episode, unspecified; F41.9 Anxiety disorder, unspecified; K21.9 Gastro-esophageal reflux disease without esophagitis; F17.210 Nicotine dependence, cigarettes, uncomplicated; K29.20 Alcoholic gastritis without bleeding

== ENCOUNTER → 2016-10-08 | Outpatient (CLI) | payer BC ==
[~2016-10-08] MED LIST changes: +CALC-393 PO; +CALC500T83 PO; +CALC625T13 PO; +CHLO10CA7 PO; +CHOL1000 PO; -CIPR250T5 PO; +CITA20TA4 PO; +CLX/20 PO; -CLX20 PO; +FOLI1TAB7 PO; +HYDR-3126 PO; +LBR10 PO; -LBR25 PO; +MULT-506 PO; -OMEP40CA PO; +OMEP40CA41 PO; +PROB1TAB16 PO; -RBTUDL5 PO; +THM100 PO; +ULT50X PO; +VITAMIN B1 PO; +VTMD400 PO
[2016-10-08 17:58] LABS: BASO ABS # 0.08 K/uL (0-0.2); COMPLETE YES; EOS % 0.8 %; HEMATOCRIT 32.4 % (37-47); IG% 0.5 %; LYMPH % 24.6 %; LYMPH ABS # 0.97 K/uL (1.2-3.4); MEAN CELL VOLUME 107.6 fL (80-100); MEAN CORPUSCULAR HEMOGLOBIN 35.5 pg (25-34); MEAN PLATELET VOLUME 11.4 fL (7.4-10.4); MONO % 25.6 %; NEUT % 46.5 %; PLATELET COUNT 135 K/uL (130-400); RED BLOOD COUNT 3.01 M/uL (4.2-5.4); WHITE BLOOD COUNT 3.94 K/uL (4.8-10.8)
[2016-10-08 18:24] LABS: ALT/SGPT 37 U/L (12-78); AST/SGOT 95 U/L (15-37); BLOOD UREA NITROGEN 13 mg/dl (7-18); BUN/CREATININE RATIO 15.2 (10-20); CALCIUM 9.1 mg/dl (8.5-10.1); CARBON DIOXIDE 25 mmol/L (21-32); CHLORIDE 107 mmol/L (98-107); CREATININE 0.86 mg/dl (0.60-1.20); GLUCOSE 99 mg/dl (70-99); POTASSIUM 3.4 mmol/L (3.5-5.1); SODIUM 140 mmol/L (136-145)
[2016-10-08 18:26] LABS: ALB/GLOB RATIO 0.8 (0.9-2); ALKALINE PHOSPHATASE 160 U/L (45-117)
== END | disposition home or self-care (01) ==
LOC: C.LABPVFM 11:09
PROVIDERS: ATTEND Nurse Practitioner
DX: D64.9 Anemia, unspecified (principal); R74.8 Abnormal levels of other serum enzymes

== ENCOUNTER → 2016-11-04 | Outpatient (CLI) | payer BC ==
--- NOTE | 2016-11-07 15:06 | MAMMOGRAPHY REPORT ---
THIS REPORT HAS BEEN AMENDED. BILATERAL DIGITAL SCREENING MAMMOGRAM TOMOSYNTHESIS WITH CAD: 11/04/2016 CLINICAL HISTORY: Routine screening examination. TECHNIQUE: Bilateral breast tomosynthesis in addition to standard 2D mammography was performed. Curr ent study was also evaluated with a Computer Aided Detection (CAD) system. COMPARISON: No prior exams were available for comparison. BREAST COMPOSITION: The tissue of both breasts is heterogeneously dense, which may obscure small ma sses. FINDINGS: There is an asymmetry in the superior, middle one third of the left breast on the MLO view that effaces on the tomosynthesis images and most likely represents normal overlapping fibroglandul ar tissue. However, comparison to prior outside mammograms would be useful to assess stability. If the outside exams are not obtained in a timely manner, additional spot compression tomosynthesis vi ews and possibly ultrasound are recommended. A linear scar marker overlies the upper outer quadrant of the right breast. There are mild vascular calcifications and a few benign-appearing round and rim calcifications in the breasts. No other harvey spicious mass, architectural distortion or cluster of suspicious microcalcifications is seen. IMPRESSION: ACR BI-RADS CATEGORY 0: INCOMPLETE EVALUATION: NEED ADDITIONAL IMAGING EVALUATION An asymmetry in the superior left breast could represent normal overlapping fibroglandular tissue. H owever, comparison to prior outside mammograms would be useful to assess stability. If the outside exams are not obtained in a timely manner, additional spot compression tomosynthesis views and possi cheko ultrasound are recommended. The patient will be called to schedule an appointment. Approximately 10% of breast cancers are not detected with mammography. A negative mammographic repor t should not delay biopsy if a clinically suggestive mass is present. Sophie Barajas M.D. ay/:11/06/2016 21:45:47 Carding Machine Operator: Rosalie HOOPER(Jose Ramon)(M), [facility] letter sent: Need Priors 0 BI-RADS Code: ACR BI-RADS Category 0: Incomplete Evaluation: Need Additional Imaging Evaluation AMENDMENT: 11/13/2016 Sophie Barajas M.D. A previous mammogram from 11/28/2004 became available for review. The asymmetry in the superior, mi ddle one third of the left breast is stable compared to the prior exam, and most likely represents n ormal fibroglandular tissue. No other new suspicious mass, architectural distortion or suspicious c lustered microcalcifications are seen. Recommend follow up in one year for next annual screening ma mmogram. Amended BI-RADS: ACR BI-RADS Category 2: Benign letter sent: Normal 07/15
== END | disposition home or self-care (01) ==
LOC: C.MAMM 13:46
PROVIDERS: ATTEND Nurse Practitioner
DX: Z12.31 Encounter for screening mammogram for malignant neoplasm of breast (principal); N64.89 Other specified disorders of breast; E83.51 Hypocalcemia; S62.102A Fracture of unspecified carpal bone, left wrist, initial encounter for closed fracture; X58.XXXA Exposure to other specified factors, initial encounter; M85.851 Other specified disorders of bone density and structure, right thigh; M85.852 Other specified disorders of bone density and structure, left thigh

== ENCOUNTER → 2016-11-22 | Outpatient (CLI) | payer BC ==
[2016-11-22 17:30] LABS: BASO % 0.7 %; BASO ABS # 0.03 K/uL (0-0.2); COMPLETE YES; EOS % 1.4 %; IG% 0.2 %; LYMPH % 29.1 %; LYMPH ABS # 1.23 K/uL (1.2-3.4); MEAN CELL VOLUME 99.7 fL (80-100); MEAN CORPUSCULAR HEMOGLOBIN 33.3 pg (25-34); MEAN CORPUSCULAR HGB CONC 33.4 g/dl (32-36); MEAN PLATELET VOLUME 10.8 fL (7.4-10.4); MONO % 10.7 %; NEUT % 57.9 %; PLATELET COUNT 177 K/uL (130-400); RED BLOOD COUNT 3.51 M/uL (4.2-5.4); WHITE BLOOD COUNT 4.22 K/uL (4.8-10.8)
[2016-11-22 17:34] LABS: INR 1.3 (0.9-1.1); PARTIAL THROMBOPLASTIN RATIO 1.3; PROTHROMBIN TIME (PATIENT) 13.7 SECONDS (9.0-12.0)
[2016-11-22 19:57] LABS: ALT/SGPT 26 U/L (12-78); AST/SGOT 32 U/L (15-37); BLOOD UREA NITROGEN 12 mg/dl (7-18); BUN/CREATININE RATIO 13.8 (10-20); CALCIUM 9.4 mg/dl (8.5-10.1); CARBON DIOXIDE 28 mmol/L (21-32); CHLORIDE 112 mmol/L (98-107); CREATININE 0.85 mg/dl (0.60-1.20); GLUCOSE 89 mg/dl (70-99); POTASSIUM 3.6 mmol/L (3.5-5.1); SODIUM 145 mmol/L (136-145)
[2016-11-22 19:58] LABS: ALB/GLOB RATIO 0.8 (0.9-2); ALKALINE PHOSPHATASE 129 U/L (45-117)
== END | disposition home or self-care (01) ==
LOC: C.LABPVFM 12:12
PROVIDERS: ATTEND Nurse Practitioner
DX: R74.8 Abnormal levels of other serum enzymes (principal); F10.10 Alcohol abuse, uncomplicated; E53.8 Deficiency of other specified B group vitamins; D69.6 Thrombocytopenia, unspecified

== ENCOUNTER → 2016-12-23 | Day surgery (SDC) | payer BC ==
[2016-12-16 08:06] VITALS: BMI 19.0
[~2016-12-23] VITALS: Ht 162.6 cm; Wt 50.0 kg
[~2016-12-23] MED LIST changes: -CALC500T83 PO; -CLX/20 PO; -LBR10 PO; +LIDOCAINE HCL 2% 2 ML VIAL (20MG/ML) ONE; +PROPOFOL IV EMULSION 10 MG/ML 20 ML VIAL IV ONE; +SODIUM CHLORIDE 0.9% 500ML 500 ML IV ONE; -THM100 PO; -VTMD400 PO
[2016-12-23 12:50] VITALS: Ht 162.6 cm; Wt 50.0 kg
--- NOTE | 2016-12-23 13:11 | Endo History and Physical ---
History & Physical Date of Service: Dec 23, 2016. Chief Complaint: BARRETTS, ALACOHOL ABUSE Referring Physician: DR NAILA LUX History of Present Illness 56 yo CF who presents for EGD secondary to Adames's Esophagus Past Medical History Hypertension, Depression Past Surgical History Hx Cardiac Surgery: No Hx Internal Defibrillator: No Hx Pacemaker: No Hx Abdominal Surgery: No Hx of Implantable Prosthesis: No Hx Post-Op Nausea and Vomiting: No Hx Cancer Surgery: No Hx Thoracic Surgery: No Hx Orthopedic: Yes (LEFT KNEE MENISCUS REPAIR, RT SHOULDER ARTHROSCOPY) Hx Urinary Tract Surgery: No Family History None Social History Smoking Status: Former Smoker Hx Substance Use: No Hx Alcohol Use: No Allergies Coded Allergies: No Known Allergies (Verified , 12/23/16) Current Medications Reported Home Medications Medications Dose Route/Sig Max Daily Dose Days Date Category Probiotic (Probiotic Product) 1 Tab Tab 1 Tab PO QAM 12/16/16 Reported Fiber Tabs (Calcium Polycarbophil) 625 Mg Tab 5 Tab PO TID PRN 12/16/16 Reported [Vitamin B1] 125 Mg PO QAM 12/16/16 Reported Vitamin D3 (Cholecalciferol) 1,000 Unit Tab 1 Tab PO QAM 90 12/16/16 Reported Calcium (Calcium Carbonate) 600 Mg Tab 300 Mg PO QAM 12/16/16 Reported Multivitamin (Multivitamins) Tab 1 Tab PO QAM 12/16/16 Reported Atarax (Hydroxyzine Hcl) 50 Mg Tab 50 Mg PO HS 12/16/16 Reported Folvite (Folic Acid) 1 Mg Tab 1 Mg PO QAM 12/16/16 Reported Prilosec (Omeprazole) 40 Mg Cap 40 Mg PO BID 12/16/16 Reported Librium (Chlordiazepoxide) 10 Mg Cap 10 Mg PO QPM 12/16/16 Reported Citalopram Hydrobromide 20 Mg Tab 1 Tab PO QPM 90 12/16/16 Reported Tramadol HCl 50 Mg Tab 1 Tab PO Q8 PRN 10/02/16 Rx Vital Signs Weight (Kilograms): 50.00 Height (Feet): 5 Height (Inches): 4 Physical Exam General Appearance: WD/WN, no apparent distress Respiratory/Chest: Auscultation: breath sounds normal Cardiovascular: Heart Auscultation: RRR Abdomen: Bowel Sounds: normal Inspection & Palpation: soft, non-distended, no tenderness, guarding & rebound Assessment and Plan Assessment: 56 yo CF who presents for EGD secondary to Adames's Esophagus Plan: Proceed with EGD.
--- NOTE | 2016-12-23 14:10 | GI REPORT ---
Procedure Date: 12/23/2016 1:35 PM Procedure: Upper GI endoscopy Indications: Follow-up of Adames's esophagus Medicines: Monitored Anesthesia Care Complications: No immediate complications. Estimated Blood Loss: Estimated blood loss: none. Procedure: Pre-Anesthesia Assessment: - Prior to the procedure, a History and Physical was performed, and patient medications and allergies were reviewed. The patient's tolerance of previous anesthesia was also reviewed. The risks and benefits of the procedure and the sedation options and risks were discussed with the patient. All questions were answered, and informed consent was obtained. Prior Anticoagulants: The patient has taken no previous anticoagulant or antiplatelet agents. ASA Grade Assessment: III - A patient with severe systemic disease. After reviewing the risks and benefits, the patient was deemed in satisfactory condition to undergo the procedure. After obtaining informed consent, the endoscope was passed under direct vision. Throughout the procedure, the patient's blood pressure, pulse, and oxygen saturations were monitored continuously.After obtaining informed consent, the endoscope was passed under direct vision. Throughout the procedure, the patient's blood pressure, pulse, and oxygen saturations were monitored continuously. The On-site loaner was introduced through the mouth, and advanced to the second part of duodenum. The upper GI endoscopy was accomplished without difficulty. The patient tolerated the procedure well. Findings: There were esophageal mucosal changes consistent with short-segment Adames's esophagus present at the gastroesophageal junction. The maximum longitudinal extent of these mucosal changes was 3 cm in length. Mucosa was biopsied with a cold forceps for histology. One specimen bottle was sent to pathology. Localized mild inflammation characterized by erythema was found in the gastric antrum. Biopsies were taken with a cold forceps for histology. The examined duodenum was normal. Impression: - Esophageal mucosal changes consistent with short-segment Adames's esophagus. Biopsied. - Gastritis. Biopsied. - Normal examined duodenum. Recommendation: - Resume previous diet. - Continue present medications. - Await pathology results. - Return to primary care physician as previously scheduled. Lui Rivas DO 12/23/2016 2:09:36 PM This report has been signed electronically. Note Initiated On: 12/23/2016 1:35 PM I attest to the content of the Intraoperative Record and orders documented therein, exceptions below
--- NOTE | 2016-12-23 14:12 | Discharge Instructions ---
Endoscopy Patient Instructions Date / Procedure(s) Performed Dec 23, 2016. EGD Allergy Information Coded Allergies: No Known Allergies (Verified , 12/23/16) Discharge Date / Findings Dec 23, 2016. Adames's esophagus s/p biopsies Gastritis s/p biopsies Medication Instructions OK to resume all medications today as prescribed Medications Dose Route/Sig Max Daily Dose Days Date Category Probiotic (Probiotic Product) 1 Tab Tab 1 Tab PO QAM 12/16/16 Reported Fiber Tabs (Calcium Polycarbophil) 625 Mg Tab 5 Tab PO TID PRN 12/16/16 Reported [Vitamin B1] 125 Mg PO QAM 12/16/16 Reported Vitamin D3 (Cholecalciferol) 1,000 Unit Tab 1 Tab PO QAM 90 12/16/16 Reported Calcium (Calcium Carbonate) 600 Mg Tab 300 Mg PO QAM 12/16/16 Reported Multivitamin (Multivitamins) Tab 1 Tab PO QAM 12/16/16 Reported Atarax (Hydroxyzine Hcl) 50 Mg Tab 50 Mg PO HS 12/16/16 Reported Folvite (Folic Acid) 1 Mg Tab 1 Mg PO QAM 12/16/16 Reported Prilosec (Omeprazole) 40 Mg Cap 40 Mg PO BID 12/16/16 Reported Librium (Chlordiazepoxide) 10 Mg Cap 10 Mg PO QPM 12/16/16 Reported Citalopram Hydrobromide 20 Mg Tab 1 Tab PO QPM 90 12/16/16 Reported Tramadol HCl 50 Mg Tab 1 Tab PO Q8 PRN 10/02/16 Rx Provider Instructions Activity Restrictions - No exercising or heavy lifting for 24 hours. - Do not drink alcohol the day of the procedure. - Do not drive a car or operate machinery until the day after the procedure. - Do not make any important decisions or sign important papers in 24 hours after the procedure. Following Day: - Return to full activity which may include returning to work/school. Diet Start your diet with liquids and light foods (jello, soup, juice, toast). Then eat your usual diet if not nauseated. Treatment For Common After Affects For mild abdominal pain, bloating, or excessive gas: - Rest - Eat lightly - Lie on right side Follow-Up Information Follow-up with DR NAILA LUX as scheduled Anesthesia Information What You Should Know You have had a procedure that required some medicine to reduce anxiety and discomfort. This treatment is called moderate sedation. After receiving the treatment, you may be sleepy, but you will be able to breathe on your own. The effects of the treatment may last for several hours. Follow these instructions along with Activity/Diet recommendations noted above: * Do NOT do anything where dizziness or clumsiness would be dangerous. * Rest quietly at home today, then you can be up and about tomorrow. * Have a responsible person stay with you the rest of today. * You may have had an I.V. today. If so, you may take the dressing off later today. Recommendations Call your doctor if: * Trouble breathing * Continuous vomiting for more than 24 hours * Temperature above 101 degrees * Severe abdominal pain or bloating * Pain not relieved by pain medicine ordered * There is increased drainage or redness from any incision * A large amount of rectal bleeding greater than 2-3 tablespoons. (If you had a polyp/s removed or have hemorrhoids, a small amount of blood - from the rectum is to be expected.) * You have any unanswered questions or concerns. IN THE EVENT OF A SERIOUS EMERGENCY, GO TO THE NEAREST EMERGENCY ROOM Your discharge instructions were prepared by provider Lui Rivas. Patient Instructions Signature Page Caitlin Walsh Patient (or Guardian) Signature/Date: I have read and understand the instructions given to me by my caregivers. Caregiver/RN/Doctor Signature/Date: The above-named patient and/or guardian has received patient instructions on this date. + Original Patient Signature Page (only) stays with chart. Please make copy for patient.
--- NOTE | 2016-12-23 14:14 | Anesthesiology Progress Note ---
Anesthesia Post Op Note Date & Time Dec 23, 2016 at 14:14 Vital Signs Pain Intensity: 0 Vital Signs Past 12 Hours Date Time Temp Pulse Resp B/P (MAP) Pulse Ox O2 Delivery O2 Flow Rate FiO2 12/23/16 14:10 68 20 113/70 (84) 96 Room Air 12/23/16 13:12 71 20 101/68 (79) 99 Room Air Notes Mental Status: alert / awake / arousable, participated in evaluation Pt Amnestic to Procedure: Yes Nausea / Vomiting: adequately controlled Pain: adequately controlled Airway Patency, RR, SpO2: stable & adequate BP & HR: stable & adequate Hydration State: stable & adequate Anesthetic Complications: no major complications apparent
[2016-12-23 14:28] VITALS: BP 106/67; PULSE 66; O2SAT 97
== END | disposition home or self-care (01) ==
LOC: C.GI 12:36
PROVIDERS: ATTEND Internal Medicine
DX: K22.70 Barrett's esophagus without dysplasia (principal); F10.10 Alcohol abuse, uncomplicated; K29.70 Gastritis, unspecified, without bleeding; I10 Essential (primary) hypertension; Z98.890 Other specified postprocedural states; Z87.891 Personal history of nicotine dependence; Z68.1 Body mass index [BMI] 19.9 or less, adult

== ENCOUNTER → 2016-12-27 | Outpatient (CLI) | payer BC ==
[~2016-12-27] MED LIST changes: -LIDOCAINE HCL 2% 2 ML VIAL (20MG/ML) ONE; -PROPOFOL IV EMULSION 10 MG/ML 20 ML VIAL IV ONE; -SODIUM CHLORIDE 0.9% 500ML 500 ML IV ONE
== END | disposition home or self-care (01) ==
LOC: C.LABPVFM 15:08
PROVIDERS: ATTEND Nurse Practitioner
DX: R19.7 Diarrhea, unspecified (principal)

== ENCOUNTER → 2017-09-12 | Outpatient (CLI) | payer BC ==
[~2017-09-12] MED LIST changes: -FOLI1TAB7 PO; +FOLI1TAB8 PO
--- NOTE | 2017-09-12 16:21 | DIAGNOSTIC IMAGING REPORT ---
GALLBLADDER-ABD LIMITED CLINICAL HISTORY: 57 years-old Female presenting with R19.7 [id number] Abdominal pain, [id number] Abdominal b. TECHNIQUE: Real-time grayscale and limited color Doppler ultrasound imaging of the abdomen limited to the right upper quadrant was performed. COMPARISON: HIDA scan from 10/02/2016, prior ultrasound and CT from 09/29/2016. FINDINGS: Pancreas: Visualized portions of the pancreatic head and body normal. Liver: Mildly hyperechogenic parenchyma, although the right hemidiaphragm remains visible, likely indicating mild steatosis. The liver measures 14.8 cm in maximal sagittal dimension. No sonographic evidence of hepatic mass. Main portal vein patent with normal directional flow. Biliary: No intrahepatic biliary ductal dilatation. Common bile duct measures up to 7 mm in diameter at the level of the pancreatic head. Gallbladder: Gallstones without evidence of gallbladder distention, wall thickening, or pericholecystic fluid or inflammatory change. Right kidney: Normal in appearance. No hydronephrosis. Ascites: None. IMPRESSION: 1. Cholelithiasis without evidence of cholecystitis. Mild extrahepatic biliary ductal dilatation without sonographic evidence of choledocholithiasis. 2. Hepatic steatosis. Correlate with liver function tests to exclude steatohepatitis as a cause for abdominal pain. Electronically signed by: Gerald Bruce M.D. 09/12/2017 4:19 PM Dictated Date/Time: 09/12/2017 4:17 PM
== END | disposition home or self-care (01) ==
LOC: C.ULTR 15:24
PROVIDERS: ATTEND Nurse Practitioner
DX: R14.0 Abdominal distension (gaseous) (principal); R10.13 Epigastric pain; R10.11 Right upper quadrant pain; R19.7 Diarrhea, unspecified

== ENCOUNTER → 2017-10-06 | Day surgery (SDC) | payer BC ==
[2017-10-03 08:25] VITALS: BMI 19.0
[~2017-10-06] VITALS: Ht 162.6 cm; Wt 50.9 kg
[~2017-10-06] MED LIST changes: -CALC-393 PO; +CALC600T9 PO; -CHOL1000 PO; -FOLI1TAB8 PO; -HYDR-3126 PO; +LIDOCAINE HCL 2% 2 ML VIAL (20MG/ML) ONE; -MULT-506 PO; +MULTTAB58 PO; -OMEP40CA41 PO; +PANT1TAB3 PO; +PROPOFOL IV EMULSION 10 MG/ML 20 ML VIAL IV ONE; +SODIUM CHLORIDE 0.9% 500ML 500 ML IV ONE; -ULT50X PO; -VITAMIN B1 PO
[2017-10-06 10:09] VITALS: Ht 162.6 cm; Wt 50.9 kg
--- NOTE | 2017-10-06 10:39 | Endo History and Physical ---
History & Physical Date of Service: Oct 06, 2017. Chief Complaint: DIARRHEA Referring Physician: OSCAR SOOD History of Present Illness 57 yo CF who presents for colonoscopy secondary to diarrhea. Past Medical History Hypertension, Depression Past Surgical History Hx Cardiac Surgery: No Hx Internal Defibrillator: No Hx Pacemaker: No Hx Abdominal Surgery: No Hx Post-Op Nausea and Vomiting: No Hx Cancer Surgery: No Hx Thoracic Surgery: No Hx Orthopedic: Yes (LEFT KNEE MENISCUS REPAIR, RT SHOULDER ARTHROSCOPY) Hx Urinary Tract Surgery: No Family History None Social History Smoking Status: Former Smoker Hx Substance Use: No Hx Alcohol Use: Yes (1-2 DRINKS DAILY) Allergies Coded Allergies: No Known Allergies (Verified , 10/06/17) Current Medications Reported Home Medications Medications Dose Route/Sig Max Daily Dose Days Date Category Calcium + D (Calcium Carbonate-Vitamin D) 1 Tab Tab 0.5 Tab PO QAM 10/03/17 Reported Multivitamin (Multiple Vitamin) 1 Tab Tab 1 Tab PO QPM 10/03/17 Reported Protonix (Pantoprazole) 40 Mg Tab 40 Mg PO QAM 10/03/17 Reported Probiotic (Probiotic Product) 1 Tab Tab 1 Tab PO QPM 12/16/16 Reported Fiber Tabs (Calcium Polycarbophil) 625 Mg Tab 5 Tab PO TID PRN 12/16/16 Reported Librium (Chlordiazepoxide) 10 Mg Cap 10 Mg PO QPM 12/16/16 Reported Citalopram Hydrobromide 20 Mg Tab 1 Tab PO QPM 90 12/16/16 Reported Vital Signs Weight (Kilograms): 50.91 Height (Feet): 5 Height (Inches): 4 Date Time Temp Pulse Resp B/P (MAP) Pulse Ox O2 Delivery O2 Flow Rate FiO2 10/06/17 10:15 36.9 99 20 120/76 (91) 99 Room Air Physical Exam General Appearance: WD/WN, no apparent distress Respiratory/Chest: Auscultation: breath sounds normal Cardiovascular: Heart Auscultation: RRR Abdomen: Bowel Sounds: normal Inspection & Palpation: soft, non-distended, no tenderness, guarding & rebound Assessment and Plan Assessment: 57 yo CF who presents for colonoscopy secondary to diarrhea. Plan: Proceed with colonoscopy.
--- NOTE | 2017-10-06 11:07 | GI REPORT ---
Procedure Date: 10/06/2017 10:30 AM Procedure: Colonoscopy Indications: Chronic diarrhea Medicines: Monitored Anesthesia Care Complications: No immediate complications. Estimated Blood Loss: Estimated blood loss: none. Procedure: Pre-Anesthesia Assessment: - Prior to the procedure, a History and Physical was performed, and patient medications and allergies were reviewed. The patient's tolerance of previous anesthesia was also reviewed. The risks and benefits of the procedure and the sedation options and risks were discussed with the patient. All questions were answered, and informed consent was obtained. Prior Anticoagulants: The patient has taken no previous anticoagulant or antiplatelet agents. ASA Grade Assessment: II - A patient with mild systemic disease. After reviewing the risks and benefits, the patient was deemed in satisfactory condition to undergo the procedure. After I obtained informed consent, the scope was passed under direct vision. Throughout the procedure, the patient's blood pressure, pulse, and oxygen saturations were monitored continuously. The scope was introduced through the anus and advanced to the terminal ileum. The colonoscopy was performed without difficulty. The patient tolerated the procedure well. The quality of the bowel preparation was good. The terminal ileum, ileocecal valve, appendiceal orifice, and rectum were photographed. Findings: The perianal and digital rectal examinations were normal. Non-bleeding internal hemorrhoids were found during retroflexion. The hemorrhoids were small. Several random biopsies were obtained with cold forceps for histology in the entire colon. Fluid aspiration for stool studies was performed. Impression: - Non-bleeding internal hemorrhoids. - Several random biopsies were obtained in the entire colon. - Fluid aspiration was performed. Recommendation: - Resume previous diet. - Continue present medications. - Await pathology results. - Repeat colonoscopy for surveillance based on pathology results. - Return to primary care physician as previously scheduled. Lui Rivas DO 10/06/2017 11:07:02 AM This report has been signed electronically. Note Initiated On: 10/06/2017 10:30 AM I attest to the content of the Intraoperative Record and orders documented therein, exceptions below
--- NOTE | 2017-10-06 11:12 | Discharge Instructions ---
Endoscopy Patient Instructions Date / Procedure(s) Performed Oct 06, 2017. Colonoscopy Allergy Information Coded Allergies: No Known Allergies (Verified , 10/06/17) Discharge Date / Findings Oct 06, 2017. Random colon biopsies Stool studies collected Medication Instructions OK to resume all medications today as prescribed Reported Home Medications Medications Dose Route/Sig Max Daily Dose Days Date Category Calcium + D (Calcium Carbonate-Vitamin D) 1 Tab Tab 0.5 Tab PO QAM 10/03/17 Reported Multivitamin (Multiple Vitamin) 1 Tab Tab 1 Tab PO QPM 10/03/17 Reported Protonix (Pantoprazole) 40 Mg Tab 40 Mg PO QAM 10/03/17 Reported Probiotic (Probiotic Product) 1 Tab Tab 1 Tab PO QPM 12/16/16 Reported Fiber Tabs (Calcium Polycarbophil) 625 Mg Tab 5 Tab PO TID PRN 12/16/16 Reported Librium (Chlordiazepoxide) 10 Mg Cap 10 Mg PO QPM 12/16/16 Reported Citalopram Hydrobromide 20 Mg Tab 1 Tab PO QPM 90 12/16/16 Reported Provider Instructions Activity Restrictions - No exercising or heavy lifting for 24 hours. - Do not drink alcohol the day of the procedure. - Do not drive a car or operate machinery until the day after the procedure. - Do not make any important decisions or sign important papers in 24 hours after the procedure. Following Day: - Return to full activity which may include returning to work/school. Diet Start your diet with liquids and light foods (jello, soup, juice, toast). Then eat your usual diet if not nauseated. Treatment For Common After Affects For mild abdominal pain, bloating, or excessive gas: - Rest - Eat lightly - Lie on right side Follow-Up Information Follow-up with OSCAR SOOD as scheduled Anesthesia Information What You Should Know You have had a procedure that required some medicine to reduce anxiety and discomfort. This treatment is called moderate sedation. After receiving the treatment, you may be sleepy, but you will be able to breathe on your own. The effects of the treatment may last for several hours. Follow these instructions along with Activity/Diet recommendations noted above: * Do NOT do anything where dizziness or clumsiness would be dangerous. * Rest quietly at home today, then you can be up and about tomorrow. * Have a responsible person stay with you the rest of today. * You may have had an I.V. today. If so, you may take the dressing off later today. Recommendations Call your doctor if: * Trouble breathing * Continuous vomiting for more than 24 hours * Temperature above 101 degrees * Severe abdominal pain or bloating * Pain not relieved by pain medicine ordered * There is increased drainage or redness from any incision * A large amount of rectal bleeding greater than 2-3 tablespoons. (If you had a polyp/s removed or have hemorrhoids, a small amount of blood - from the rectum is to be expected.) * You have any unanswered questions or concerns. IN THE EVENT OF A SERIOUS EMERGENCY, GO TO THE NEAREST EMERGENCY ROOM Your discharge instructions were prepared by provider Lui Rivas. Patient Instructions Signature Page Caitlin Walsh Patient (or Guardian) Signature/Date: I have read and understand the instructions given to me by my caregivers. Caregiver/RN/Doctor Signature/Date: The above-named patient and/or guardian has received patient instructions on this date. + Original Patient Signature Page (only) stays with chart. Please make copy for patient.
--- NOTE | 2017-10-06 11:35 | Anesthesiology Progress Note ---
Anesthesia Post Op Note Date & Time Oct 06, 2017 at 11:35 Vital Signs Pain Intensity: 0 Vital Signs Past 12 Hours Date Time Temp Pulse Resp B/P (MAP) Pulse Ox O2 Delivery O2 Flow Rate FiO2 10/06/17 11:19 83 16 99/69 (79) 100 Room Air 10/06/17 11:04 82 16 83/59 (67) 97 Room Air 10/06/17 10:15 36.9 99 20 120/76 (91) 99 Room Air Notes Mental Status: alert / awake / arousable, participated in evaluation Pt Amnestic to Procedure: Yes Nausea / Vomiting: adequately controlled Pain: adequately controlled Airway Patency, RR, SpO2: stable & adequate BP & HR: stable & adequate Hydration State: stable & adequate Anesthetic Complications: no major complications apparent
[2017-10-06 11:51] VITALS: BP 112/76; PULSE 75; TEMP 36.9; O2SAT 100
== END | disposition home or self-care (01) ==
LOC: C.GI 09:25
PROVIDERS: ATTEND Internal Medicine
DX: R19.7 Diarrhea, unspecified (principal); K52.839 Microscopic colitis, unspecified; K64.8 Other hemorrhoids; K21.9 Gastro-esophageal reflux disease without esophagitis; I10 Essential (primary) hypertension; F32.9 Major depressive disorder, single episode, unspecified; Z87.891 Personal history of nicotine dependence

== ENCOUNTER 2021-05-25 20:01 | Inpatient (IN) ==
[2021-05-26 01:30] LABS: Basophils # (auto) 0.02 K/uL (0-0.2); Basophils % (auto) 0.6 %; Eosinophils # (auto) 0.08 K/uL (0-0.5); Eosinophils % (auto) 2.4 %; Hematocrit (blood only) 23.5 % (37-47); Hemoglobin 7.3 g/dL (12.0-16.0); Immature Granulocytes # (auto) 0.01 K/uL (0.00-0.02); Immature Granulocytes % (auto) 0.3 %; Lymphocytes # (auto) 1.35 K/uL (1.2-3.4); Lymphocytes % (auto) 41.2 %; Mean Corpuscular Hemoglobin 28.2 pg (25-34); Mean Corpuscular Hgb Conc 31.1 g/dL (32-36); Mean Corpuscular Volume 90.7 fL (80-100); Mean Platelet Volume 10.4 fL (7.4-10.4); Monocytes # (auto) 0.39 K/uL (0.11-0.59); Monocytes % (auto) 11.9 %; Neutrophils # (auto) 1.43 K/uL (1.4-6.5); Neutrophils % (auto) 43.6 %; Platelet Count 139 K/uL (130-400); RDW Coefficient of Variation 18.3 % (11.5-14.5); RDW Standard Deviation 61.8 fL (36.4-46.3); Red Blood Count 2.59 M/uL (4.2-5.4); White Blood Count 3.28 K/uL (4.8-10.8)
[2021-05-26 01:31] LABS: Appearance Urine Clear (Clear); Bilirubin Urine Negative (Negative); Blood Urine Negative (Negative); Color Urine Yellow; Glucose Urine UA Negative (Negative); Ketones Urine Negative (Negative); Leukocyte Esterase Urine Negative (Negative); Nitrite Urine Negative (Negative); Protein Urine Negative (Negative); Specific Gravity Urine 1.009 (1.000-1.030); Urobilinogen Urine Negative (Negative)
[2021-05-26 01:49] LABS: Ovalocytes 1+; Tear Drop Cells 1+
[2021-05-26 01:56] LABS: Albumin Level 2.3 gm/dl (3.4-5.0); BUN Creatinine Ratio 7.8 (10-20); Calcium 7.2 mg/dl (8.5-10.1); Creatinine Clr Calc Pharmacy 50.3 ml/min; Est GFR (African American) 73.5 ml/min; Est GFR (Non-African American) 63.4 ml/min; Potassium 2.6 mmol/L (3.5-5.1)
[2021-05-26 01:59] LABS: Albumin Globulin Ratio 0.5 (0.9-2); Bilirubin,Total 0.7 mg/dl (0.2-1); Globulin 4.8 gm/dl (2.5-4.0); Total Protein 7.1 gm/dl (6.4-8.2)
[2021-05-26] MEDS ORDERED: SODIUM CHLORIDE 0.9% 250 ML IV PRN ×2 (02:12→05:47)
[2021-05-26] MEDS ORDERED: PANTOPRAZOLE BOLUS/DRIP 1 EA IV STA (02:12)
[2021-05-26] MEDS ORDERED: OCTREOTIDE ACETATE 50 MCG in SYRINGE 9.5 ML IV STA (02:12)
[2021-05-26] MEDS ORDERED: PANTOprazole 80 MG in DEXTROSE 5% 100 ML IV ONE (02:12)
[2021-05-26] MEDS ORDERED: PANTOprazole 40 MG in DEXTROSE 5% 100 ML IV SCH (02:30)
--- NOTE | 2021-05-26 02:30 | Emergency Department Note ---
Impression & Plan Hypokalemia, Esophageal varices, Anemia, Cholelithiasis, Common bile duct dilatation ED Provider Note INFORMANT: Patient ED PROVIDER(S): Sergo Yoon MD CHIEF COMPLAINT: Abdominal pain PLAN: Disposition: Admitted Condition: Good Outpatient prescription management: none Referral: None MEDICAL DECISION MAKING: Patient presented because of abdominal pain and abnormal ultrasound. She had some minimal pain on examination but overall looked well. She declined analgesia. The patient had blood work sent. Her CBC was significant for a worsening anemia. However she had significant hypokalemia on her chemistry panel. IV potassium repletion was ordered. Given her history of peptic ulcer disease along with esophageal varices the patient was started on IV Protonix, bolus and drip as well as an octreotide bolus and drip. I discussed further management in the hospital in light of her hypokalemia, abnormal ultrasound, and the worsening anemia with occasional blood in her stool. Consultation was made with Dr. Ralu Sanchez of the [facility] service. Patient was evaluated in the ER for further management. Triage Nursing notes reviewed and agree them. Vital Signs: reviewed and remarkable for no significant abnormalities Differential diagnosis: Biliary pathology, choledocholithiasis, appendicitis, ovarian cyst, ovarian torsion, ectopic , TOA, PID, infections, diverticulitis, UTI, obstruction, mesenteric ischemia, aortic pathology, inflammatory bowel disease, renal colic, PUD, pancreatitis, hernia, volvulus, constipation, as well as other pathologies. Diagnostics interpreted by me: ECG: none Cardiac Monitoring: Cardiac monitoring ordered by me: The patient was placed on continuous cardiac monitoring and observed. It revealed a normal sinus rhythm at 82 beats per minute without ectopy or evidence of dysrhythmia. HPI: The patient is a 61 year old female who presents to the Emergency Room with complaints of abdominal pain. This started intermittently over the last week and is currently improved. The patient also notes the following associated symptoms, feeling weak and tired, occasionally seeing red blood in her stool. Patient did note an episode of vomiting but denies any coffee-ground emesis or hematemesis. She had an outpatient ultrasound done and it revealed cholelithiasis and a dilated common bile duct. She was referred to the ER for evaluation. The patient has taken no new medication for relieving factors. Current pain is rated as 3/10. Patient does have a history of anemia as well as cirrhosis. Pt denies LOC, headache, fevers, chills, diaphoresis, visual changes, neck pain, chest pain, breathing difficulties, back pain, melena, urinary symptoms, numbness, lymphadenopathy, rash, or other complaints. ROS: See above HPI for pertinent positives & negatives. A total of 10 systems reviewed and were otherwise negative. PAST MEDICAL HISTORY:See Below , esophageal varices, cirrhosis, GERD, peptic ulcer disease PAST SURGICAL HISTORY:See Below, FAMILY HISTORY:See Below SOCIAL HISTORY:See Below, non-smoker, history of alcohol use HOME MEDICATIONS:See Below ALLERGIES:See Below VITALS:See Below PHYSICAL EXAMINATION: GENERAL: Awake, alert, well-appearing, in no distress HENT: Normocephalic, atraumatic. Oropharynx unremarkable. EYES: Normal conjunctiva. Sclera non-icteric. NECK: Inspection normal. Non-tender. Supple. No nuchal rigidity. FROM. No masses. RESPIRATORY: Clear to auscultation. No wheezes. No rales. Normal respiratory effort. CARDIAC: Normal rate. Normal rhythm. No murmurs. No rubs. Extremities warm and well perfused. Pulses equal. No JVD. GI: Soft, non-distended. Minimal right upper quadrant tenderness to palpation. No rebound or guarding. No masses. RECTAL: Deferred. MUSCULOSKELETAL: Atraumatic. Chest examination reveals no tenderness. The back is symmetrical on inspection without obvious abnormality. There is no CVA tenderness to palpation. No joint edema. LOWER EXTREMITIES: Calves are equal size bilaterally and non-tender. Left pedal edema present. No significant right lower edema. No discoloration. NEURO: Normal sensorium. No sensory or motor deficits noted. SKIN: No rash or jaundice noted. Sergo Yoon MD Past Med/Surg History Medical History (Updated 05/26/21 @ 02:30 by Sergo Yoon MD) Alcoholic cirrhosis of liver Ascites Adames's esophagus Depression GERD (gastroesophageal reflux disease) Surgical History H/O knee surgery H/O shoulder surgery H/O wrist surgery Family History Mother Hx of cholecystectomy Hypertension Other Cancer Gallbladder disease Lung cancer Social History Smoking Status: Never smoker Hx Alcohol Use: Yes Hx Substance Use: No Preferred Language: Fijian Communication Ability: Effective Beliefs That Will Affect Care: None Current Living Situation: Spouse current occupational status: employed Feels Safe at Home: Yes Assistive Devices: Denture - Upper, Denture - Lower and Glasses Allergies Allergies Allergy/AdvReac Type Severity Reaction Status Date / Time No Known Drug Allergies Allergy Unknown Verified 05/26/21 00:55 Home Meds Previous Rx's Medication Instructions Recorded citalopram 20 mg tablet (Celexa) 20 mg PO QAM #30 tab 10/02/20 furosemide 40 mg tablet 40 mg PO QAM PRN #30 tab 05/24/21 nadolol 40 mg tablet 20 mg PO DAILY #15 tab 05/24/21 pantoprazole 40 mg tablet,delayed 40 mg PO DAILY #30 tab 05/24/21 release spironolactone 100 mg tablet 100 mg PO DAILY #30 tab 05/24/21 (Aldactone) Results & Data (ED) Vital Signs Vital Signs - 24 hr 05/25/21 20:18 05/26/21 01:20 05/26/21 01:21 Temperature 36.7 C 36.9 C Temperature Source Temporal Artery Scan Oral Pulse Rate 100 H Pulse Rate [Apical] 97 H Pulse Rhythm [Apical] Regular Pulse Strength [Apical] Normal Respiratory Rate 18 18 Respiratory Effort / Characteristics Non-Labored Respiratory Depth Normal Normal Respiratory Pattern Regular Blood Pressure 133/78 Blood Pressure [Right Arm] 127/77 Blood Pressure Mean 96 Blood Pressure Mean [Right Arm] 93 Blood Pressure Position [Right Arm] Lying Pulse Oximetry 98 98 97 Oxygen Delivery Method Room Air Room Air Room Air Sepsis Recent Fever Within 48 Hours No Sepsis New/Unexplained Change in Mental Status N/A Sepsis Action Taken by Nursing No Action Required 05/26/21 02:19 Temperature 36.6 C Temperature Source Oral Pulse Rate Pulse Rate [Apical] 82 Pulse Rhythm [Apical] Regular Pulse Strength [Apical] Normal Respiratory Rate 16 Respiratory Effort / Characteristics Non-Labored Respiratory Depth Normal Respiratory Pattern Regular Blood Pressure Blood Pressure [Right Arm] 142/83 H Blood Pressure Mean Blood Pressure Mean [Right Arm] 102 Blood Pressure Position [Right Arm] Lying Pulse Oximetry 97 Oxygen Delivery Method Room Air Sepsis Recent Fever Within 48 Hours Sepsis New/Unexplained Change in Mental Status Sepsis Action Taken by Nursing Laboratory Data Result diagrams: 05/26/21 01:15 05/26/21 01:15 Lab Results 05/26/21 05/26/21 05/26/21 Range/Units 01:00 01:15 01:15 WBC 3.28 L (4.8-10.8) K/uL RBC 2.59 L (4.2-5.4) M/uL Hgb 7.3 L (12.0-16.0) g/dL Hct 23.5 L (37-47) % MCV 90.7 (80-100) fL MCH 28.2 (25-34) pg MCHC 31.1 L (32-36) g/dL RDW Std Deviation 61.8 H (36.4-46.3) fL RDW Coeff of Ana 18.3 H (11.5-14.5) % Plt Count 139 (130-400) K/uL MPV 10.4 (7.4-10.4) fL Immature Gran % (Auto) 0.3 % Neut % (Auto) 43.6 % Lymph % (Auto) 41.2 % [place] % (Auto) 11.9 % Eos % (Auto) 2.4 % Baso % (Auto) 0.6 % Neut # (Auto) 1.43 (1.4-6.5) K/uL Lymph # (Auto) 1.35 (1.2-3.4) K/uL [place] # (Auto) 0.39 (0.11-0.59) K/uL Eos # (Auto) 0.08 (0-0.5) K/uL Baso # (Auto) 0.02 (0-0.2) K/uL Immature Gran # (Auto) 0.01 (0.00-0.02) K/uL Tear Drop Cells 1+ Ovalocytes 1+ Sodium 141 (136-145) mmol/L Potassium 2.6 L (3.5-5.1) mmol/L Chloride 109 H (98-107) mmol/L Carbon Dioxide 24 (21-32) mmol/L Anion Gap 8.0 (3-11) BUN 8 (7-18) mg/dl Creatinine 0.96 (0.6-1.2) mg/dl Est Cr Clr Drug Dosing 50.3 ml/min Est GFR ( Amer) 73.5 ml/min Est GFR (Non-Af Amer) 63.4 ml/min BUN/Creatinine Ratio 7.8 L (10-20) Glucose 109 H (70-99) mg/dl Calcium 7.2 L (8.5-10.1) mg/dl Total Bilirubin 0.7 (0.2-1) mg/dl AST 70 H (15-37) U/L ALT 33 (12-78) U/L Alkaline Phosphatase 123 H (45-117) U/L Total Protein 7.1 (6.4-8.2) gm/dl Albumin 2.3 L (3.4-5.0) gm/dl Globulin 4.8 H (2.5-4.0) gm/dl Albumin/Globulin Ratio 0.5 L (0.9-2) Lipase 80 (73-393) U/L Urine Color Yellow Urine Appearance Clear (Clear) Urine pH 7.0 (4.5-7.5) Ur Specific [place] 1.009 (1.000-1.030) Urine Protein Negative (Negative) Urine Glucose (UA) Negative (Negative) Urine Ketones Negative (Negative) Urine Blood Negative (Negative) Urine Nitrite Negative (Negative) Urine Bilirubin Negative (Negative) Urine Urobilinogen Negative (Negative) Ur Leukocyte Esterase Negative (Negative) COVID-19 Eval Order SARS-CoV-2 (PCR) (Negative) Blood Type Antibody Screen Crossmatch 05/26/21 05/26/21 05/26/21 Range/Units 02:21 02:21 02:31 WBC (4.8-10.8) K/uL RBC (4.2-5.4) M/uL Hgb (12.0-16.0) g/dL Hct (37-47) % MCV (80-100) fL MCH (25-34) pg MCHC (32-36) g/dL RDW Std Deviation (36.4-46.3) fL RDW Coeff of Ana (11.5-14.5) % Plt Count (130-400) K/uL MPV (7.4-10.4) fL Immature Gran % (Auto) % Neut % (Auto) % Lymph % (Auto) % [place] % (Auto) % Eos % (Auto) % Baso % (Auto) % Neut # (Auto) (1.4-6.5) K/uL Lymph # (Auto) (1.2-3.4) K/uL [place] # (Auto) (0.11-0.59) K/uL Eos # (Auto) (0-0.5) K/uL Baso # (Auto) (0-0.2) K/uL Immature Gran # (Auto) (0.00-0.02) K/uL Tear Drop Cells Ovalocytes Sodium (136-145) mmol/L Potassium (3.5-5.1) mmol/L Chloride (98-107) mmol/L Carbon Dioxide (21-32) mmol/L Anion Gap (3-11) BUN (7-18) mg/dl Creatinine (0.6-1.2) mg/dl Est Cr Clr Drug Dosing ml/min Est GFR ( Amer) ml/min Est GFR (Non-Af Amer) ml/min BUN/Creatinine Ratio (10-20) Glucose (70-99) mg/dl Calcium (8.5-10.1) mg/dl Total Bilirubin (0.2-1) mg/dl AST (15-37) U/L ALT (12-78) U/L Alkaline Phosphatase (45-117) U/L Total Protein (6.4-8.2) gm/dl Albumin (3.4-5.0) gm/dl Globulin (2.5-4.0) gm/dl Albumin/Globulin Ratio (0.9-2) Lipase (73-393) U/L Urine Color Urine Appearance (Clear) Urine pH (4.5-7.5) Ur Specific [place] (1.000-1.030) Urine Protein (Negative) Urine Glucose (UA) (Negative) Urine Ketones (Negative) Urine Blood (Negative) Urine Nitrite (Negative) Urine Bilirubin (Negative) Urine Urobilinogen (Negative) Ur Leukocyte Esterase (Negative) COVID-19 Eval Order Covid19 at [facility] SARS-CoV-2 (PCR) NEGATIVE (Negative) Blood Type O Positive Antibody Screen NEGATIVE Crossmatch See Detail Administered Medications Potassium Chloride (K Taz / Wtr) 10 meq in 100 mls @ 100 mls/hr IV Q1H FELISHA Stop: 05/26/21 04:14 Last Admin: 05/26/21 02:34 Dose: 100 mls/hr Documented by: [id number] Octreotide Acetate 500 mcg/ (Sodium Chloride) 105 mls @ 10.5 mls/hr IV .Q10H FELISHA Stop: 06/25/21 02:14 Last Admin: 05/26/21 04:04 Dose: 50 mcg/hr, 10.5 mls/hr Documented by: [id number] Sodium Chloride (Nss 1000ml) 1,000 mls @ 75 mls/hr IV .[id number] STA Stop: 05/26/21 15:58 Last Admin: 05/26/21 02:44 Dose: 75 mls/hr Documented by: [id number] Discontinued Medications Pantoprazole Sodium 80 mg/ (Dextrose) 120 mls @ 400 mls/hr IV NOW ONE Stop: 05/26/21 02:29 Last Admin: 05/26/21 04:03 Dose: 400 mls/hr Documented by: [id number] Octreotide Acetate 50 mcg/ (Syringe) 10 mls @ 3 mls/min IV ONE STA Stop: 05/26/21 02:15 Last Admin: 05/26/21 04:04 Dose: 3 mls/min Documented by: [id number] Discharge Plan Visit Data Chief Complaint: Abdominal Pain Stated Complaint: AB PAIN, REF BY ED Provider: Sergo Yoon Discharge Problem: Hypokalemia, Esophageal varices, Anemia, Cholelithiasis, Common bile duct dilatation Forms Stand Alone Forms: [facility] [employer] Prescriptions Prescriptions: No Action citalopram [Celexa] 20 mg tablet 20 mg PO QAM Qty: 30 RF: 11 furosemide 40 mg tablet 40 mg PO QAM PRN (Reason: edema) Qty: 30 RF: 0 Hold Instructions: Home Medication placed on hold at Doctor's office nadolol 40 mg tablet 20 mg PO DAILY Qty: 15 RF: 11 pantoprazole 40 mg tablet,delayed release (DR/EC) 40 mg PO DAILY Qty: 30 RF: 2 spironolactone [Aldactone] 100 mg tablet 100 mg PO DAILY Qty: 30 RF: 2 Referrals Referrals: Katy Nath CRNP [Primary Care Provider] -
[2021-05-26] MEDS: POTASSIUM CHLORIDE / WTR 10 MEQ/100 ML PLCT IV SCH ×6 (02:34→11:30)
[2021-05-26] MEDS ORDERED: SODIUM CHLORIDE 0.9% 1000ML 1,000 ML IV STA (02:39)
--- NOTE | 2021-05-26 03:11 | History & Physical Report ---
Date of Service May 26, 2021 Assessment & Plan (1) Anemia: Plan: Caitlin Walsh is a 61y/o female with past medical history significant for esophageal varices, cholelithiasis, dysphagia, alcoholic cirrhosis of liver, and anemia; who presents at the request of her deli/bakery associate following liver ultrasound demonstrating retained gallstones within the gallbladder. Anemia: -Longstanding history of normocytic anemia -Hgb 7.3 on admission -Consented and transfused 1 unit PRBCs -Recheck H&H in a.m. -Given relative limited symptomatology and history of esophageal varices consideration of gradual blood loss over time resulting in worsened anemia Cholelithiasis -Abdomen ultrasound from 05/25 demonstrated cholelithiasis with common bile duct dilatation but no evidence of acute cholecystitis or choledocholithiasis -Patient had planned ERCP and EGD for evaluation and dilation later this month with gastroenterology -Consult gastroenterology for potential expedition of this timeline Alcoholic cirrhosis with esophageal varices: -Over the last several months patient had not been utilizing nadolol for esophageal varices -Continue Lasix and Aldactone daily Diet: Regular pured CODE STATUS: Full code (2) Cholelithiasis: (3) Common bile duct dilatation: (4) Esophageal varices: (5) Alcoholic cirrhosis of liver: History of Present Illness Primary Care Provider: BARRIE England Caitlin Walsh is a 61y/o female with past medical history significant for esophageal varices, cholelithiasis, dysphagia, alcoholic cirrhosis of liver, and anemia; who presents at the request of her deli/bakery associate following liver ultrasound demonstrating retained gallstones within the gallbladder. Had a routine screening ultrasound of her liver for hepatocellular carcinoma concerns in the setting of her cirrhosis, following the discovery of these gallstones she was instructed to present to the ER. She has overall been feeling relatively well with the only exception being some increased fatigue, and the continuation of her dysphagia. She has a scheduled EGD/ERCP with esophageal dilation later this month. Upon presentation to the ED with screening lab work detected that her hemoglobin dropped to 7.3. She denies any dark black/tarry stools over this time, does endorse occasional speckles of bright red blood on toilet paper in the toilet bowl over the last several months. Uses has relatively normalized this is been going on for her for many years. Allergies Allergy/AdvReac Type Severity Reaction Status Date / Time No Known Drug Allergies Allergy Unknown Verified 05/26/21 00:55 Home Medications Medication Instructions Recorded Confirmed Type citalopram 20 mg tablet (Celexa) 20 mg PO QAM #30 tab 10/02/20 05/26/21 Rx furosemide 40 mg tablet 40 mg PO QAM PRN #30 tab 05/24/21 05/26/21 Rx nadolol 40 mg tablet 20 mg PO DAILY #15 tab 05/24/21 05/26/21 Rx pantoprazole 40 mg tablet,delayed 40 mg PO DAILY #30 tab 05/24/21 05/26/21 Rx release spironolactone 100 mg tablet 100 mg PO DAILY #30 tab 05/24/21 05/26/21 Rx (Aldactone) Past Med/Surg History Medical History (Updated 05/26/21 @ 05:53 by Lukas Hernandez MD) Alcoholic cirrhosis of liver Ascites Adames's esophagus Depression GERD (gastroesophageal reflux disease) Surgical History H/O knee surgery H/O shoulder surgery H/O wrist surgery Family History Mother Hx of cholecystectomy Hypertension Other Cancer Gallbladder disease Lung cancer Social History Smoking Status: Former smoker Hx Alcohol Use: Yes Alcohol type: other Hx Substance Use: No Preferred Language: Thai Communication Ability: Effective Nba Player Required: No Beliefs That Will Affect Care: None Current Living Situation: Spouse current occupational status: employed Other Information That Helps Us Care for You: No ( with parkinsons) Feels Safe at Home: Yes Safety Concerns: Feels Safe At This Time Assistive Devices: Glasses Review of Systems Review of Systems: All systems reviewed & are unremarkable except as noted in HPI & below Physical Exam Constitutional: WD/WN, vitals as above Eyes: PERRL, conjunctivae normal, anicteric sclerae Respiratory: normal respiratory effort, lungs clear to auscultation Auscultation: no crackles, no rales, no rhonchi and no wheezes Cardiovascular: Rate/Rhythm: regular rate and regular rhythm Heart Sounds: no gallop, no murmur and no cardiac rub Vessels: normal peripheral pulses; no JVD Extremities: no edema Gastrointestinal (Abdomen): Inspection/Auscultation: normal bowel sounds; abdomen not distended Percussion/Palpation: + abdomen tender (epigastric), abdomen soft and normal to percussion; no guarding Musculoskeletal: no cyanosis or clubbing, extremities motor strength 5/5 Skin: no rashes, warm and dry Neurologic: PERRL, EOMI, accommodation nl, no face palsy, no dysarthria CN's II-XI intact bilaterally and moves all extremities Psychiatric: Orientation: alert and oriented x 3 Results & Data Results & Data ([facility]) Vital Signs (Past 12 Hours) Vital Signs Temp Pulse Pulse Resp BP BP Pulse Ox 05/26/21 02:19 36.6 C 82 16 142/83 H 97 05/26/21 01:21 36.9 C 97 H 18 127/77 97 05/26/21 01:20 98 05/25/21 20:18 36.7 C 100 H 18 133/78 98 Laboratory Results 05/26/21 05/26/21 05/26/21 Range/Units 02:31 02:21 02:21 WBC (4.8-10.8) K/uL RBC (4.2-5.4) M/uL Hgb (12.0-16.0) g/dL Hct (37-47) % MCV (80-100) fL MCH (25-34) pg MCHC (32-36) g/dL RDW Std Deviation (36.4-46.3) fL RDW Coeff of Ana (11.5-14.5) % Plt Count (130-400) K/uL MPV (7.4-10.4) fL Immature Gran % (Auto) % Neut % (Auto) % Lymph % (Auto) % [place] % (Auto) % Eos % (Auto) % Baso % (Auto) % Neut # (Auto) (1.4-6.5) K/uL Lymph # (Auto) (1.2-3.4) K/uL [place] # (Auto) (0.11-0.59) K/uL Eos # (Auto) (0-0.5) K/uL Baso # (Auto) (0-0.2) K/uL Immature Gran # (Auto) (0.00-0.02) K/uL Tear Drop Cells Ovalocytes Sodium (136-145) mmol/L Potassium (3.5-5.1) mmol/L Chloride (98-107) mmol/L Carbon Dioxide (21-32) mmol/L Anion Gap (3-11) BUN (7-18) mg/dl Creatinine (0.6-1.2) mg/dl Est Cr Clr Drug Dosing ml/min Est GFR ( Amer) ml/min Est GFR (Non-Af Amer) ml/min BUN/Creatinine Ratio (10-20) Glucose (70-99) mg/dl Calcium (8.5-10.1) mg/dl Total Bilirubin (0.2-1) mg/dl AST (15-37) U/L ALT (12-78) U/L Alkaline Phosphatase (45-117) U/L Total Protein (6.4-8.2) gm/dl Albumin (3.4-5.0) gm/dl Globulin (2.5-4.0) gm/dl Albumin/Globulin Ratio (0.9-2) Lipase (73-393) U/L Urine Color Urine Appearance (Clear) Urine pH (4.5-7.5) Ur Specific Grant (1.000-1.030) Urine Protein (Negative) Urine Glucose (UA) (Negative) Urine Ketones (Negative) Urine Blood (Negative) Urine Nitrite (Negative) Urine Bilirubin (Negative) Urine Urobilinogen (Negative) Ur Leukocyte Esterase (Negative) COVID-19 Eval Order Covid19 at [facility] SARS-CoV-2 (PCR) NEGATIVE (Negative) Blood Type O Positive Antibody Screen NEGATIVE Crossmatch See Detail 05/26/21 05/26/21 05/26/21 Range/Units 01:15 01:15 01:00 WBC 3.28 L (4.8-10.8) K/uL RBC 2.59 L (4.2-5.4) M/uL Hgb 7.3 L (12.0-16.0) g/dL Hct 23.5 L (37-47) % MCV 90.7 (80-100) fL MCH 28.2 (25-34) pg MCHC 31.1 L (32-36) g/dL RDW Std Deviation 61.8 H (36.4-46.3) fL RDW Coeff of Ana 18.3 H (11.5-14.5) % Plt Count 139 (130-400) K/uL MPV 10.4 (7.4-10.4) fL Immature Gran % (Auto) 0.3 % Neut % (Auto) 43.6 % Lymph % (Auto) 41.2 % [place] % (Auto) 11.9 % Eos % (Auto) 2.4 % Baso % (Auto) 0.6 % Neut # (Auto) 1.43 (1.4-6.5) K/uL Lymph # (Auto) 1.35 (1.2-3.4) K/uL [place] # (Auto) 0.39 (0.11-0.59) K/uL Eos # (Auto) 0.08 (0-0.5) K/uL Baso # (Auto) 0.02 (0-0.2) K/uL Immature Gran # (Auto) 0.01 (0.00-0.02) K/uL Tear Drop Cells 1+ Ovalocytes 1+ Sodium 141 (136-145) mmol/L Potassium 2.6 L (3.5-5.1) mmol/L Chloride 109 H (98-107) mmol/L Carbon Dioxide 24 (21-32) mmol/L Anion Gap 8.0 (3-11) BUN 8 (7-18) mg/dl Creatinine 0.96 (0.6-1.2) mg/dl Est Cr Clr Drug Dosing 50.3 ml/min Est GFR ( Amer) 73.5 ml/min Est GFR (Non-Af Amer) 63.4 ml/min BUN/Creatinine Ratio 7.8 L (10-20) Glucose 109 H (70-99) mg/dl Calcium 7.2 L (8.5-10.1) mg/dl Total Bilirubin 0.7 (0.2-1) mg/dl AST 70 H (15-37) U/L ALT 33 (12-78) U/L Alkaline Phosphatase 123 H (45-117) U/L Total Protein 7.1 (6.4-8.2) gm/dl Albumin 2.3 L (3.4-5.0) gm/dl Globulin 4.8 H (2.5-4.0) gm/dl Albumin/Globulin Ratio 0.5 L (0.9-2) Lipase 80 (73-393) U/L Urine Color Yellow Urine Appearance Clear (Clear) Urine pH 7.0 (4.5-7.5) Ur Specific Grant 1.009 (1.000-1.030) Urine Protein Negative (Negative) Urine Glucose (UA) Negative (Negative) Urine Ketones Negative (Negative) Urine Blood Negative (Negative) Urine Nitrite Negative (Negative) Urine Bilirubin Negative (Negative) Urine Urobilinogen Negative (Negative) Ur Leukocyte Esterase Negative (Negative) COVID-19 Eval Order SARS-CoV-2 (PCR) (Negative) Blood Type Antibody Screen Crossmatch Medications Administered Home Medication List Medication Instructions Recorded citalopram 20 mg tablet (Celexa) 20 mg PO QAM #30 tab 10/02/20 furosemide 40 mg tablet 40 mg PO QAM PRN #30 tab 05/24/21 nadolol 40 mg tablet 20 mg PO DAILY #15 tab 05/24/21 pantoprazole 40 mg tablet,delayed 40 mg PO DAILY #30 tab 05/24/21 release spironolactone 100 mg tablet 100 mg PO DAILY #30 tab 05/24/21 (Aldactone) Supervising Physician Co-Signing Physician Notes Attending addendum: I have physically seen this patient, have supervised the medical residents activities, and agree with the H&P unless as otherwise noted. Assessment and Plan: Anemia- Likely history of anemia of chronic disease which is now worsened Hemoglobin 7.3 upon admission, with recent 9.6 Hemoccult stools H&H to be repeated after transfusing 1 unit PRBCs Admit to monitored bed History of esophageal varices, unlikely related at this time, due to relatively insidious nature of declining hemoglobin NPO except essential medications Cholelithiasis/CBD dilatation/outpatient EEG ERCP planned- NPO as above Consult gastroenterology Alcoholic cirrhosis/esophageal varices- Lasix and Aldactone as noted Remaining orders and notations as noted Resident Activity Tracking Resident Involvement: Resident Care Provided Care Provided: Adult Hospital Medicine (1) Esophageal varices Esophageal varices type: secondary (2) Alcoholic cirrhosis of liver Ascites presence: with ascites Qualified Code(s): K70.31 - Alcoholic cirrhosis of liver with ascites
[2021-05-26] MEDS: OCTREOTIDE ACETATE 500 MCG in 0.9 % SODIUM CHLORIDE 100 ML IV SCH ×3 (04:04→21:19)
[2021-05-26] MEDS ORDERED: FUROSEMIDE 40 MG TAB PO PRN (05:47)
[2021-05-26] MEDS ORDERED: MoRPHine SULFATE 2 MG/ML CARP IV PRN (05:47)
[2021-05-26] MEDS ORDERED: NITROGLYCERIN SL 0.4 MG/TAB TAB SL PRN (05:47)
[2021-05-26 05:58] LABS: Basophils # (auto) 0.02 K/uL (0-0.2); Basophils % (auto) 0.7 %; Eosinophils % (auto) 3.5 %; Hematocrit (blood only) 23.6 % (37-47); Hemoglobin 7.5 g/dL (12.0-16.0); Immature Granulocytes # (auto) 0.01 K/uL (0.00-0.02); Immature Granulocytes % (auto) 0.4 %; Lymphocytes % (auto) 38.6 %; Mean Corpuscular Hemoglobin 28.8 pg (25-34); Mean Corpuscular Hgb Conc 31.8 g/dL (32-36); Mean Corpuscular Volume 90.8 fL (80-100); Mean Platelet Volume 10.1 fL (7.4-10.4); Monocytes # (auto) 0.34 K/uL (0.11-0.59); Monocytes % (auto) 11.9 %; Neutrophils # (auto) 1.28 K/uL (1.4-6.5); Neutrophils % (auto) 44.9 %; Platelet Count 119 K/uL (130-400); RDW Coefficient of Variation 18.1 % (11.5-14.5); RDW Standard Deviation 60.3 fL (36.4-46.3); White Blood Count 2.85 K/uL (4.8-10.8)
[2021-05-26 06:19] LABS: Hypochromasia Present; Tear Drop Cells 1+
[2021-05-26 06:40] LABS: Albumin Globulin Ratio 0.5 (0.9-2); Albumin Level 2.1 gm/dl (3.4-5.0); Bilirubin,Total 0.7 mg/dl (0.2-1); Calcium 7.3 mg/dl (8.5-10.1); Creatinine Clr Calc Pharmacy 52.5 ml/min; Est GFR (African American) 80.5 ml/min; Est GFR (Non-African American) 69.5 ml/min; Globulin 4.4 gm/dl (2.5-4.0); Potassium 3.1 mmol/L (3.5-5.1); Total Protein 6.5 gm/dl (6.4-8.2)
[2021-05-26 08:25] LABS: Magnesium 0.8 mg/dl (1.8-2.4)
[2021-05-26] MEDS: MAGNESIUM OXIDE 400 MG TAB PO SCH ×2 (08:31→20:08)
[2021-05-26] MEDS: MAGNESIUM SULFATE / D5W 1 GM/100 ML BAG IV SCH ×2 (08:31→10:18)
[2021-05-26] MEDS: CITALOPRAM 20 MG TAB PO SCH (08:31)
[2021-05-26] MEDS: nadoloL 40 MG TAB PO SCH (08:32)
[2021-05-26] MEDS: SPIRONOLACTONE 100 MG TAB PO SCH (08:33)
[2021-05-26] MEDS ORDERED: PANTOprazole 40 MG TAB PO SCH (09:00)
[2021-05-26] MEDS: PANTOprazole 40 MG in SYRINGE 0 ML IV SCH ×2 (09:22→20:08)
[2021-05-26] MEDS ORDERED: MAGNESIUM SULFATE / D5W 1 GM/100 ML BAG IV ONE (11:45)
[2021-05-26 13:13] LABS: Hematocrit (blood only) 28.2 % (37-47); Hemoglobin 8.8 g/dL (12.0-16.0)
--- NOTE | 2021-05-26 13:23 | Gastrointestinal Consultation ---
Date of Consultation May 26, 2021 Supervising Physician Co-Signing Physician Notes 61 yo fm sent in by her outpt [facility] provider for abd pain and abnormal imaging. She is feeling fine today- tolerating coffee, no pain reported no hematemesis. Her anemia and panctopenia is likely secondary to her underlying liver disease. Her MELD is low at this time less than 10. Given abd owen findings of distended gb and dilated cbd, will obtain an mrcp. Trend wbc count, lft's. She is currently hemodynamically stable and asymptomatic. History of Present Illness Reason for Consultation: Abnormal outpatient owen - sent in by outpt [facility] group Requesting Physician: Gerald Sexton Attending Physician: Gerald Sexton MD History of Present Illness 61 yo fm with known cirrhosis, followed by [facility] with known g1ev. She was sent by her outpt provider after an abd owen showed distended gb and dilation in her cbd. She reported mild abdominal pain but none currently. No fevers, chills, no hematemesis, hematochezia, nausea, vomtiing, diarrhea. She is currently drinking a cup of coffee this afternoon. She has no other acute complaints. Allergies Allergy/AdvReac Type Severity Reaction Status Date / Time No Known Drug Allergies Allergy Unknown Verified 05/26/21 00:55 Home Medications Medication Instructions Recorded Confirmed Type citalopram 20 mg tablet (Celexa) 20 mg PO QAM #30 tab 10/02/20 05/26/21 Rx furosemide 40 mg tablet 40 mg PO QAM PRN #30 tab 05/24/21 05/26/21 Rx nadolol 40 mg tablet 20 mg PO DAILY #15 tab 05/24/21 05/26/21 Rx pantoprazole 40 mg tablet,delayed 40 mg PO DAILY #30 tab 05/24/21 05/26/21 Rx release spironolactone 100 mg tablet 100 mg PO DAILY #30 tab 05/24/21 05/26/21 Rx (Aldactone) Patient History Medical History (Updated 05/26/21 @ 05:53 by Lukas Hernandez MD) Alcoholic cirrhosis of liver Ascites Adames's esophagus Depression GERD (gastroesophageal reflux disease) Surgical History H/O knee surgery H/O shoulder surgery H/O wrist surgery Family History Mother Hx of cholecystectomy Hypertension Other Cancer Gallbladder disease Lung cancer Social History Smoking Status: Former smoker Hx Alcohol Use: Yes Alcohol type: other Hx Substance Use: No Preferred Language: Yoruba Communication Ability: Effective Acrylic Fabricator Required: No Beliefs That Will Affect Care: None Current Living Situation: Spouse current occupational status: employed Other Information That Helps Us Care for You: No ( with parkinsons) Feels Safe at Home: Yes Safety Concerns: Feels Safe At This Time Assistive Devices: Denture - Upper, Denture - Lower and Glasses Review of Systems Review of Systems: All systems reviewed & are unremarkable except as noted in HPI & below Physical Exam Physical Exam: Well nourished fm in nad Constitutional: WD/WN, vitals as above Eyes: Non icteric sclerae Gastrointestinal (Abdomen): Soft nt nd Neurologic: PERRL, EOMI, accommodation nl, no face palsy, no dysarthria Results & Data ([facility]) Vital Signs (Past 12 Hours) Vital Signs Temp Pulse Pulse Resp BP BP Pulse Ox 05/26/21 11:39 69 14 126/81 05/26/21 11:29 75 05/26/21 10:25 75 16 129/81 99 05/26/21 09:34 36.6 C 85 16 135/85 98 05/26/21 09:28 36.7 C 81 16 133/86 05/26/21 08:34 36.6 C 87 16 114/68 97 05/26/21 08:04 36.6 C 89 16 126/77 100 05/26/21 07:49 36.6 C 91 H 16 133/80 99 05/26/21 07:31 36.5 C 97 H 16 128/85 100 05/26/21 05:51 36.7 C 87 22 148/84 H 100 05/26/21 04:30 95 H 20 116/71 99 05/26/21 02:19 36.6 C 82 16 142/83 H 97 05/26/21 01:21 36.9 C 97 H 18 127/77 97 05/26/21 01:20 98 Laboratory Results Pancytopenic - wbc 2.85, hgb 7.8, hct 23.6, plt 1119 Na 141/K 3.1/CL 110/Co25/Bun 7/Cr 0.9 Mg 0.8 Ca 7.3 AST 67 AP 119 ALT 31 Lipase normal Abd owen reviewed - hepatomegaly on this scan but outpt records say she is cirrhotic, distended gb, cbd of 14 mm Diagnostic Findings Abd ut zreviewed - distended gb, cbd of 14 mm
--- NOTE | 2021-05-26 13:31 | Hospitalist Progress Note ---
Date of Service May 26, 2021 Assessment & Plan (1) Anemia: Plan: Caitlin Walsh is a 61y/o female with past medical history significant for esophageal varices, cholelithiasis, dysphagia, alcoholic cirrhosis of liver, and anemia; who presents at the request of her electronic specialist following liver ultrasound demonstrating retained gallstones within the gallbladder. Anemia: -Longstanding history of normocytic anemia -Hgb 7.3 on admission, up trended to 8.8 following transfusion -Consented and transfused 1 unit PRBCs -Trend H&H daily Patient -Given relative limited symptomatology and history of esophageal varices consideration of gradual blood loss over time Patient known to hematology as outpatient, has some bone marrow suppression with pancytopenia likely 2/2 combination of alcohol disease and liver dysfunction (2) Alcoholic cirrhosis of liver: Plan: Alcoholic cirrhosis with esophageal varices: -Over the last several months patient had not been utilizing nadolol for esophageal varices -Continue Lasix and Aldactone daily GI consulted Meld score less than 10 (3) Cholelithiasis: Plan: Cholelithiasis -Abdomen ultrasound from 05/25 demonstrated cholelithiasis with common bile duct dilatation but no evidence of acute cholecystitis or choledocholithiasis -Patient had planned ERCP and EGD for evaluation and dilation later this month with gastroenterology -GI consulted. Anticipate MRCP today, continue to follow Appreciate recommendations (4) Common bile duct dilatation: Plan: Hypokalemia 3.1 with history of diarrhea, likely nutritional plus losses Hypomagnesemic to 0.8 on admission. Mag-Ox twice daily added, riders x3 with r epeat trended Trend, continue to replete as indicated Diet: Regular pured CODE STATUS: Full code (5) Esophageal varices: Admission and Anticipated Discharge Date Admission Date: May 26, 2021 Lucius Tucker is seen at the bedside this morning. She reports she continues to feel fatigued. She reports she has been told before she might have "lazy marrow ". Reports that she has been told that she has esophageal varices in the past, had tried to take nadolol but was unable to tolerate this due to lightheadedness and orthostasis, was encouraged to attempt to take a half dose of this but has not been able to tolerate it. She reports that she has not taken nadolol since it was first prescribed. She denies bowel movements today. She denies nausea, vomiting, melena today. She reports that she has a history of alcohol withdrawal and in the distant past had been admitted to the hospital for withdrawal symptoms and possible seizure, but that was "a long time ago when I drink liquor, "and since drinks some hard seltzers daily but has gone for several days without alcohol and no withdrawal symptoms. Indoor she does have some GERD which makes her cough, and sometimes has difficulty swallowing with some thin liquids causing her throat to "slam she got ". Review of Systems Review of Systems: All systems reviewed & are unremarkable except as noted in Subjective Physical Exam Physical Exam: General: A&Ox3. NAD. Cooperative. Appears thin. HEENT: Atraumatic, normocephalic. Visual acuity and hearing grossly intact. Pulm: CTAB A&P. -wheezes, -rales, -rhonchi. Symmetrical chest rise. No increase work of breathing. No respiratory distress. Cardiac: RRR, -mrg. Radial pulses intact and symmetrical. Abdominal: Nontender, nondistended, soft. BS present. Extremities: Moves all extremities equally. Sensation to soft touch intact in hands and feet. Shale Miner strength in ankle dorsiflexion/plantar flexion intact. Results & Data Results & Data ([facility]) Vital Signs (Past 12 Hours) Vital Signs Temp Pulse Pulse Resp BP BP Pulse Ox 05/26/21 05:51 36.7 C 87 22 148/84 H 100 05/26/21 04:30 95 H 20 116/71 99 05/26/21 02:19 36.6 C 82 16 142/83 H 97 05/26/21 01:21 36.9 C 97 H 18 127/77 97 05/26/21 01:20 98 05/25/21 20:18 36.7 C 100 H 18 133/78 98 PG Care Time/CCT Total # of Minutes Spent Total Time Spent with Patient: Total time spent is greater than 50% in coordination of care (as documented) at patient's floor/unit and/or counseling patient: Coding Level of Care Code 14993 Subseq Hosp Care Lvl 3 Diagnoses Anemia D64.9 Cholelithiasis K80.20 Common bile duct dilatation K83.8 Esophageal varices I85.00 Esophageal varices type: secondary Alcoholic cirrhosis of liver K70.31 Ascites presence: with ascites (1) Esophageal varices Esophageal varices type: secondary (2) Alcoholic cirrhosis of liver Ascites presence: with ascites Qualified Code(s): K70.31 - Alcoholic cirrhosis of liver with ascites
[2021-05-26 13:43] LABS: BUN Creatinine Ratio 7.8 (10-20); Calcium 6.8 mg/dl (8.5-10.1); Creatinine Clr Calc Pharmacy 49.1 ml/min; Est GFR (African American) 74.4 ml/min; Est GFR (Non-African American) 64.2 ml/min; Magnesium 2.1 mg/dl (1.8-2.4)
--- NOTE | 2021-05-26 19:59 | Billing Data ---
Date of Service May 26, 2021 Coding Level of Care Code 72117 Initial Inpt Care Lvl 3
[2021-05-27] MEDS: SPIRONOLACTONE 100 MG TAB PO SCH (08:03)
[2021-05-27] MEDS: PANTOprazole 40 MG in SYRINGE 0 ML IV SCH ×2 (08:04→21:00)
[2021-05-27] MEDS: nadoloL 40 MG TAB PO SCH (08:05)
[2021-05-27] MEDS: MAGNESIUM OXIDE 400 MG TAB PO SCH ×2 (08:06→20:59)
[2021-05-27] MEDS: CITALOPRAM 20 MG TAB PO SCH (08:07)
[2021-05-27] MEDS: OCTREOTIDE ACETATE 500 MCG in 0.9 % SODIUM CHLORIDE 100 ML IV SCH ×2 (08:07→20:58)
[2021-05-27 09:13] LABS: Basophils # (auto) 0.03 K/uL (0-0.2); Eosinophils % (auto) 3.4 %; Hematocrit (blood only) 28.7 % (37-47); Hemoglobin 8.9 g/dL (12.0-16.0); Immature Granulocytes # (auto) 0.01 K/uL (0.00-0.02); Immature Granulocytes % (auto) 0.3 %; Lymphocytes # (auto) 0.85 K/uL (1.2-3.4); Lymphocytes % (auto) 28.5 %; Mean Corpuscular Hemoglobin 27.8 pg (25-34); Mean Corpuscular Volume 89.7 fL (80-100); Mean Platelet Volume 10.4 fL (7.4-10.4); Monocytes # (auto) 0.36 K/uL (0.11-0.59); Monocytes % (auto) 12.1 %; Neutrophils # (auto) 1.63 K/uL (1.4-6.5); Neutrophils % (auto) 54.7 %; Platelet Count 128 K/uL (130-400); RDW Coefficient of Variation 18.5 % (11.5-14.5); RDW Standard Deviation 61.6 fL (36.4-46.3); White Blood Count 2.98 K/uL (4.8-10.8)
[2021-05-27 09:45] LABS: Albumin Level 1.9 gm/dl (3.4-5.0); BUN Creatinine Ratio 6.9 (10-20); Calcium 7.4 mg/dl (8.5-10.1); Creatinine Clr Calc Pharmacy 60.3 ml/min; Est GFR (African American) 91.6 ml/min; Potassium 3.9 mmol/L (3.5-5.1)
[2021-05-27 09:48] LABS: Albumin Globulin Ratio 0.4 (0.9-2); Globulin 4.3 gm/dl (2.5-4.0); Total Protein 6.2 gm/dl (6.4-8.2)
--- NOTE | 2021-05-27 10:57 | Gastroenterology Progress Note ---
Date of Service May 27, 2021 Assessment & Plan (1) Common bile duct dilatation: Plan: Sent in by her [facility] group for an abnormal ultrasound, MRCP is still pending. Pending results of MRCP, further plan of care thereafter. Please empirically npo after midnitie. Admission and Anticipated Discharge Date Admission Date: May 26, 2021 Supervising Physician Co-Signing Physician Notes See above Subjective No acute complaints Moved out of the ICU to the floor Review of Systems Review of Systems: All systems reviewed & are unremarkable except as noted in HPI & below Results & Data ([facility]) Vital Signs (Past 12 Hours) Vital Signs Temp Pulse Pulse Pulse Resp BP Pulse Ox 05/27/21 07:14 37.0 C 78 16 106/68 98 05/27/21 03:26 36.7 C 74 18 114/68 97 05/27/21 01:40 36.6 C 72 18 119/76 97 05/27/21 00:00 76 05/26/21 23:36 36.9 C 73 16 130/78 94 Laboratory Results Labs reviewed - continued to be pancytopenic from underlying cirrhosis
--- NOTE | 2021-05-27 13:06 | Hospitalist Progress Note ---
Date of Service May 27, 2021 Assessment & Plan (1) Cholelithiasis: Plan: Patient presents to the hospital with complaints of abdominal pain Found to have evidence dilated bile duct and cholelithiasis on US Plan is for MRCP, which has been orderd GI on consult (2) Common bile duct dilatation: Plan: Plan is for MRCP Rest of management pending result Per GI, will keep NPO after midnight (3) Cirrhosis: Plan: Stable liver function (4) Esophageal varices: Plan: No evidence of bleed for now Continue home medications Admission and Anticipated Discharge Date Admission Date: May 26, 2021 Subjective Patient seen and examined this morning, said her abdominal pain has resolved Review of Systems Review of Systems: All systems reviewed are negative, apart from the ones contained in the history. Physical Exam Physical Exam: The patient is awake, alert and oriented 3, well developed and well nourished, normocephalic and atraumatic, lying in bed and in no acute distress. HEENT--PERRL, EOMI, mucous membranes and oropharynx mildly dry Neck--supple. No JVD. No bruits. Thyroid normal, trachea midline, no adenopathy. Heart--normal S1 and S2. No murmurs, rubs or gallops. Lungs--clear bilaterally, no respiratory distress, no accessory muscle use. Abdomen--normal bowel sounds and soft. Mild epigastric and left sided abdominal pain Extremities--no cyanosis or clubbing. No edema. Dermatologic--normal skin turgor, normal color, no abnormal lymph nodes, no rash. Neurologic--cranial nerves II through XII grossly intact. Rheumatologic--normal range of motion. Psychiatric--normal affect. Results & Data Results & Data ([facility]) Vital Signs (Past 12 Hours) Vital Signs Temp Pulse Resp BP Pulse Ox 05/27/21 11:00 98.1 F 65 18 102/62 98 05/27/21 07:14 98.6 F 78 16 106/68 98 05/27/21 03:26 98.1 F 74 18 114/68 97 05/27/21 01:40 97.9 F 72 18 119/76 97 Laboratory Results Laboratory Results - last 24 hr 05/26/21 05/26/21 05/27/21 12:59 13:02 08:22 WBC 2.98 L RBC 3.20 L Hgb 8.8 L 8.9 L Hct 28.2 L 28.7 L MCV 89.7 MCH 27.8 MCHC 31.0 L RDW Std Deviation 61.6 H RDW Coeff of Ana 18.5 H Plt Count 128 L MPV 10.4 Immature Gran % (Auto) 0.3 Neut % (Auto) 54.7 Lymph % (Auto) 28.5 [place] % (Auto) 12.1 Eos % (Auto) 3.4 Baso % (Auto) 1.0 Neut # (Auto) 1.63 Lymph # (Auto) 0.85 L [place] # (Auto) 0.36 Eos # (Auto) 0.10 Baso # (Auto) 0.03 Immature Gran # (Auto) 0.01 Sodium 139 Potassium 4.0 D Chloride 109 H Carbon Dioxide 23 Anion Gap 7.0 BUN 7 Creatinine 0.95 Est Cr Clr Drug Dosing 49.1 Est GFR ( Amer) 74.4 Est GFR (Non-Af Amer) 64.2 BUN/Creatinine Ratio 7.8 L Glucose 213 H Calcium 6.8 L Magnesium 2.1 Total Bilirubin AST ALT Alkaline Phosphatase Total Protein Albumin Globulin Albumin/Globulin Ratio 05/27/21 08:22 WBC RBC Hgb Hct MCV MCH MCHC RDW Std Deviation RDW Coeff of Ana Plt Count MPV Immature Gran % (Auto) Neut % (Auto) Lymph % (Auto) [place] % (Auto) Eos % (Auto) Baso % (Auto) Neut # (Auto) Lymph # (Auto) [place] # (Auto) Eos # (Auto) Baso # (Auto) Immature Gran # (Auto) Sodium 144 Potassium 3.9 Chloride 113 H Carbon Dioxide 22 Anion Gap 8.0 BUN 6 L Creatinine 0.80 Est Cr Clr Drug Dosing 60.3 Est GFR ( Amer) 91.6 Est GFR (Non-Af Amer) 79.0 BUN/Creatinine Ratio 6.9 L Glucose 130 H Calcium 7.4 L Magnesium Total Bilirubin 1.0 AST 64 H ALT 28 Alkaline Phosphatase 133 H Total Protein 6.2 L Albumin 1.9 L Globulin 4.3 H Albumin/Globulin Ratio 0.4 L PG Care Time/CCT Total # of Minutes Spent Total Time Spent with Patient: Total time spent is greater than 50% in coordination of care (as documented) at patient's floor/unit and/or counseling patient: Coding Level of Care Code 92219 Subseq Hosp Care Lv 2 Diagnoses Cholelithiasis K80.20 Common bile duct dilatation K83.8 Cirrhosis K74.60; R18.8 Ascites presence: with ascites Hepatic cirrhosis type: unspecified hepatic cirrhosis Esophageal varices I85.00 Esophageal varices type: secondary (1) Cirrhosis Ascites presence: with ascites Hepatic cirrhosis type: unspecified hepatic cirrhosis Qualified Code(s): K74.60 - Unspecified cirrhosis of liver; R18.8 - Other ascites (2) Esophageal varices Esophageal varices type: secondary
--- NOTE | 2021-05-27 14:42 | Magnetic Resonance Report ---
MR MRCP CLINICAL HISTORY: dilated CBD, pain COMPARISON: Comparison is made to abdominal ultrasound 05/25/2021 TECHNIQUE: Multiplanar multisequence images were obtained of the abdomen with and without the adminis tration of contrast. FINDINGS: Lower chest: No acute abnormality Liver: Unremarkable. No intra and out of phase imaging was obtained for assessment of hepatic steatos is. Gallbladder and biliary tree: A gallstone is seen in the gallbladder neck measuring approximately 5 m m in diameter. There is suggestion of additional layering stones in the dependent portion of the gall bladder. There is dilation of the common bile duct, measuring up to 1.0 cm in diameter. No filling de fect is seen. Pancreas: Unremarkable, no focal lesions. Spleen: Unremarkable. Adrenals: Unremarkable. Kidneys and ureters: Unremarkable. Bowel: Unremarkable. Lymph nodes Retroperitoneal: Unremarkable. Mesenteric: Unremarkable. Peritoneum: Small ascites is seen. Vessels: Unremarkable. Abdominal wall: Unremarkable. Bones: Unremarkable. IMPRESSION: 1. Cholelithiasis without evidence of cholecystitis. There is smooth enlargement of the intra or ext rahepatic bile ducts without evidence of choledocholithiasis. 2. Small ascites is seen. ACT 112: Negative or not required by law. Electronically signed by: Pollo Vidales M.D. 05/27/2021 2:40 PM
[2021-05-28] MEDS: OCTREOTIDE ACETATE 500 MCG in 0.9 % SODIUM CHLORIDE 100 ML IV SCH (06:00)
[2021-05-28 07:17] VITALS: TEMP 98.1
[2021-05-28 08:19] LABS: Basophils # (auto) 0.02 K/uL (0-0.2); Basophils % (auto) 0.7 %; Eosinophils # (auto) 0.11 K/uL (0-0.5); Eosinophils % (auto) 3.7 %; Hematocrit (blood only) 27.5 % (37-47); Hemoglobin 8.5 g/dL (12.0-16.0); Immature Granulocytes # (auto) 0.01 K/uL (0.00-0.02); Immature Granulocytes % (auto) 0.3 %; Lymphocytes # (auto) 1.08 K/uL (1.2-3.4); Lymphocytes % (auto) 36.4 %; Mean Corpuscular Hgb Conc 30.9 g/dL (32-36); Mean Corpuscular Volume 90.5 fL (80-100); Mean Platelet Volume 11.5 fL (7.4-10.4); Monocytes # (auto) 0.52 K/uL (0.11-0.59); Monocytes % (auto) 17.5 %; Neutrophils # (auto) 1.23 K/uL (1.4-6.5); Neutrophils % (auto) 41.4 %; Platelet Count 123 K/uL (130-400); RDW Coefficient of Variation 18.3 % (11.5-14.5); RDW Standard Deviation 61.4 fL (36.4-46.3); Red Blood Count 3.04 M/uL (4.2-5.4); White Blood Count 2.97 K/uL (4.8-10.8)
[2021-05-28 08:41] LABS: Albumin Level 1.7 gm/dl (3.4-5.0); BUN Creatinine Ratio 6.4 (10-20); Calcium 7.7 mg/dl (8.5-10.1); Creatinine Clr Calc Pharmacy 56.8 ml/min; Est GFR (African American) 85.1 ml/min; Est GFR (Non-African American) 73.4 ml/min; Potassium 3.8 mmol/L (3.5-5.1)
[2021-05-28 08:44] LABS: Albumin Globulin Ratio 0.4 (0.9-2); Bilirubin,Total 0.8 mg/dl (0.2-1); Globulin 4.2 gm/dl (2.5-4.0); Total Protein 5.9 gm/dl (6.4-8.2)
[2021-05-28] MEDS: SPIRONOLACTONE 100 MG TAB PO SCH (10:13)
[2021-05-28] MEDS: nadoloL 40 MG TAB PO SCH (10:14)
[2021-05-28] MEDS: MAGNESIUM OXIDE 400 MG TAB PO SCH (10:15)
[2021-05-28] MEDS: PANTOprazole 40 MG in SYRINGE 0 ML IV SCH (10:15)
[2021-05-28] MEDS: CITALOPRAM 20 MG TAB PO SCH (10:15)
--- NOTE | 2021-05-28 10:28 | Gastroenterology Progress Note ---
Date of Service May 28, 2021 Assessment & Plan (1) Common bile duct dilatation: (2) Alcoholic cirrhosis of liver: Plan: * Outpatient EGD/EUS by Dr. Blancas to be arranged. * Abstain from alcohol. * Continue lasix 40 and aldactone 100 mg daily. * Continue nadolol 20 mg daily. * Continue protonix 40 mg daily. * 2 g sodium restricted diet. * Supportive care. Outpatient f/u in our office upon discharge. Admission and Anticipated Discharge Date Admission Date: May 26, 2021 Supervising Physician Co-Signing Physician Notes Agree with BARRIE Juan Patient was discharged prior to my evaluation Subjective Caitlin is status post MRCP with ductal dilation. For outpatient EGD/EUS as per [facility] with Dr. Blancas. No abdominal pain, n/v, pruritus, dark urine, acholic stools, or overt GIB. H&H remains stable. Review of Systems Constitutional: no fever and no chills Gastrointestinal: as per Subjective / HPI Physical Exam Constitutional: WD/WN, vitals as above Respiratory: normal respiratory effort, lungs clear to auscultation Cardiovascular: RRR, no murmur, no edema Gastrointestinal (Abdomen): normal bowel sounds, soft, nontender, no hepatosplenomegaly Psychiatric: A+Ox3, euthymic affect Results & Data Results & Data ([facility]) Vital Signs (Past 12 Hours) Vital Signs Temp Pulse Pulse Resp BP BP Pulse Ox 05/28/21 07:19 75 05/28/21 07:14 36.7 C 74 18 118/68 97 05/28/21 04:05 37 C 61 18 121/71 98 05/28/21 01:17 76 05/28/21 00:00 37.0 C 74 18 105/66 96 PG Care Time/CCT Total # of Minutes Spent Total Time Spent with Patient: Total time spent is greater than 50% in coordination of care (as documented) at patient's floor/unit and/or counseling patient: Coding Level of Care Code 93755 Subseq Hosp Care Lvl 3 Diagnoses Common bile duct dilatation K83.8 Alcoholic cirrhosis of liver K70.31 Ascites presence: with ascites (1) Alcoholic cirrhosis of liver Ascites presence: with ascites Qualified Code(s): K70.31 - Alcoholic cirrhosis of liver with ascites
--- NOTE | 2021-05-28 11:28 | Discharge Summary ---
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 Had a routine screening ultrasound of her liver for hepatocellular carcinoma concerns in the setting of her cirrhosis, following the discovery of these gallstones she was instructed to present to the ER. She has overall been feeling relatively well with the only exception being some increased fatigue, and the continuation of her dysphagia. She has a scheduled EGD/ERCP with esophageal dilation later this month. Upon presentation to the ED with screening lab work detected that her hemoglobin dropped to 7.3. She denies any dark black/tarry stools over this time, does endorse occasional speckles of bright red blood on toilet paper in the toilet bowl over the last several months. Uses has relatively normalized this is been going on for her for many years. Principal Diagnosis 1. gallstones, suspected asymptomatic 2. chronic anemia s/p 1 unit PRBCs 3. alcoholic cirrhosis with h/o esophageal varices Discharge Exam Gen - NAD Mouth - ?thrush plaques/erythema of buccal mucosa Heart - RRR, s1 s2 Lungs - CTA b/l Abd - soft NT ND BS+ Ext - no edema, pulses 2+ b/l Skin - mild pallor Discharge Data Allergies Allergy/AdvReac Type Severity Reaction Status Date / Time No Known Drug Allergies Allergy Unknown Verified 06/04/21 10:32 [facility]ations [facility] Procedures Performed PRBCs x 1 unit Ordered Studies Cholangiopancreatography MRI 05/27/21 08:12 MR MRCP CLINICAL HISTORY: dilated CBD, pain COMPARISON: Comparison is made to abdominal ultrasound 05/25/2021 TECHNIQUE: Multiplanar multisequence images were obtained of the abdomen with and without the administration of contrast. FINDINGS: Lower chest: No acute abnormality Liver: Unremarkable. No intra and out of phase imaging was obtained for assessment of hepatic steatosis. Gallbladder and biliary tree: A gallstone is seen in the gallbladder neck measuring approximately 5 mm in diameter. There is suggestion of additional layering stones in the dependent portion of the gallbladder. There is dilation of the common bile duct, measuring up to 1.0 cm in diameter. No filling defect is seen. Pancreas: Unremarkable, no focal lesions. Spleen: Unremarkable. Adrenals: Unremarkable. Kidneys and ureters: Unremarkable. Bowel: Unremarkable. Lymph nodes Retroperitoneal: Unremarkable. Mesenteric: Unremarkable. Peritoneum: Small ascites is seen. Vessels: Unremarkable. Abdominal wall: Unremarkable. Bones: Unremarkable. IMPRESSION: 1. Cholelithiasis without evidence of cholecystitis. There is smooth enlargement of the intra or extrahepatic bile ducts without evidence of choledocholithiasis. 2. Small ascites is seen. ACT 112: Negative or not required by law. Electronically signed by: Pollo Vidales M.D. 05/27/2021 2:40 PM Hospital Course (1) Cholelithiasis: Despite the gallstones there was no radiographic evidence of acute cholecystitis or choledocholithiasis. She had no GI symptoms to suggest acute biliary tract infection. LFTs remained stable during her stay. She [facility] which she will follow-up for. Tang recommendations were made by [facility] during this visit. (2) Anemia: Hemoglobin at presentation was 7.3, improving to 8.5 s/p 1 unit of PRBCs. Baseline hemoglobin is about 9-10. She had no evidence of active GI bleeding during the visit as her hemoglobin remained in the mid-8's following the blood transfusion. I did recommend she increase her PPI to twice daily given her h/o Adames's, GERD, varices, etc. She will need a f/u CBC at time of hospital follow-up. (3) Hypokalemia: Replaced and normalized prior to discharge. Low magnesium was replaced and normalized as well. (4) Hypomagnesemia: Severely low - 0.8 at presentation. Past mag levels have been quite low as well. Replaced and normalized prior to discharge. Advised once daily mag oxide 400mg post-discharge to maintain normal mag levels. (5) Esophageal varices: Known. Continue PPI. (6) Alcoholic cirrhosis of liver: [facility] Has upcoming EGD/EUS by Dr Bora Blancas with [facility] later in May 2021. (7) GERD (gastroesophageal reflux disease): Continue PPI. (8) Coagulopathy: INR 1.3 during the stay, 2nd to cirrhosis. (9) Pancytopenia: 2nd to cirrhosis. Consider TSH/B12/Folate levels as outpatient. (10) Candidiasis of mouth and esophagus: Nystatin solution - 5cc qid x 7-10 days. Total Time Total Time Spent Total Time Spent (In Minutes): 40 Discharge Plan Discharge Items Patient Disposition: Home - Self-Care Reason For Visit: Gallstones Discharge Diagnosis: 1. gallstones in the gall bladder, but gall bladder does not appear to be ill (also known as "cholecystitis") at this time 2. anemia - 1 unit of blood given 3. cirrhosis 4. intermittent stomach pains 5. suspected thrush (yeast in the mouth) Activity: Resume your previous activity Non-emergency contact: Primary Care Provider and Second Vp Hr Assessment Call non-emergency contact if: you have any medication questions, your symptoms worsen and your pain is not controlled Follow-up/Referrals: Katy Nath CRNP [Primary Care Provider] - 06/04/21 10:30 am Bora Blancas DO [Physician] - (please see Dr Blancas for outpatient endoscopy as already planned for later this month) Diet: Low Sodium (2gm) Diet Texture: Pureed (blended smooth) Addtl Attending Provider Instructions: Mrs Walsh, You were hospitalized due to concerns that your gall bladder containing ga llstones was sick/ill (also known as cholecystitis). There was also concerns that gallstones had potentially moved into your bile duct. Multiple tests were run including an MRI of the gall bladder/bile ducts. This again confirmed the presence of gallstones in your gall bladder but the gall bladder otherwise did not appear ill. Further, the MRI did not show gallstones in the bile duct. You were seen by the [facility]. They have both advised an outpatient "EUS" -- endoscopic ultrasound. This is when a probe is run from the mouth down into the intestines and a small ultrasound can look at your pancreas, gall bladder, etc internally. Dr Blancas can perform this "EUS" when he performs your upper endoscopy later this month. Finally, you received 1 unit of blood for your chronic anemia (low red cells). [facility] -- 1. increase your pantoprazole to 40mg twice daily (morning, and at bedtime). 2. take nystatin solution -- 5cc four times daily for 10 days, swish and swallow. This will treat possible yeast infection of the mouth. 3. continue soft, pureed diet because of your difficulty swallowing. 4. ok to take the nadalol at bedtime. 5. take magnesium 400mg once daily as your magnesium levels were very low at time of admission. The magnesium and nystatin medications were sent to [facility] for you. 6. continue to follow a low-salt (2 grams maximum) diet for your cirrhosis. Follow-up -- * if you have not heard from Dr Blancas's office with [facility] by Friday of this week please contact them to confirm the date/time of your EGD/EUS procedure later this month * see your family doctor as scheduled Return to [facility] if -- * you have fevers over 100 degrees * you have worsening abdominal pain * you have yellowing of the eyes or skin * you have persistent nausea and/or vomiting * you see bright red blood in your stools, or have dark/tarry/black stools * you cannot eat or drink because of worsening swallowing * any other concerns It was our pleasure to care for you at [facility]! Pending Studies at Discharge: No Stand-Alone Forms: My [facility], Smoking Cessation Medications and DC Order Prescriptions: New magnesium oxide 400 mg (241.3 mg magnesium) Tablet 400 mg PO DAILY Qty: 30 RF: 1 Continued citalopram [Celexa] 20 mg tablet 20 mg PO QAM Qty: 30 RF: 11 furosemide 40 mg tablet 40 mg PO QAM PRN (Reason: edema) Qty: 30 RF: 0 Hold Instructions: Home Medication placed on hold at Doctor's office nadolol 40 mg tablet 20 mg PO DAILY Qty: 15 RF: 11 spironolactone [Aldactone] 100 mg tablet 100 mg PO DAILY Qty: 30 RF: 2 Changed pantoprazole 40 mg tablet,delayed release (DR/EC) 40 mg PO BID Qty: 30 RF: 2 No Action Magic Mouthwash 300 mL mouthwash 5 ml mucous membrane .COMPLEX Qty: 300 RF: 0 Discharge Orders: Discharge Order (Routine); Ordered 05/28/21 Ordered By: Shaggy Peterson Admission Data Admit Date/Time: 05/26/21 03:10 Attending Provider: Shaggy Peterson Admit Provider: Lukas Hernandez Primary Care Provider: Katy Nath Other Providers: Raul Sanchez ; Dorinda Correa ; Gerald Sexton Other Interventions: Discharge Summary Assessment (RN) Last Done: 05/28/21 11:45 Coding Level of Care Code D/C DAY MANAGEMENT >30 MINS Diagnoses Cholelithiasis K80.20 Anemia D64.9 Hypokalemia E87.6 Esophageal varices I85.00 Esophageal varices type: secondary Alcoholic cirrhosis of liver K70.31 Ascites presence: with ascites GERD (gastroesophageal reflux disease) K21.9 Hypomagnesemia E83.42 Coagulopathy D68.9 Pancytopenia D61.818 Candidiasis of mouth and esophagus B37.81; B37.0
[2021-05-28 12:13] VITALS: BP 124/75; PULSE 61; O2SAT 98
== END 2021-05-28 12:56 | disposition home or self-care (01) | DRG 445 ==
LOC: ED 20:01 → SUATTDRO 05-26 03:10 → 1E 05-26 03:10 → 2N 05-27 01:29
DX: K22.70 Barrett's esophagus without dysplasia; D63.8 Anemia in other chronic diseases classified elsewhere; K83.8 Other specified diseases of biliary tract; Z87.891 Personal history of nicotine dependence; B37.0 Candidal stomatitis; K70.31 Alcoholic cirrhosis of liver with ascites; D61.818 Other pancytopenia; K80.20 Calculus of gallbladder without cholecystitis without obstruction; F10.20 Alcohol dependence, uncomplicated; I85.10 Secondary esophageal varices without bleeding

== ENCOUNTER 2021-11-27 17:15 | Observation (INO) ==
[2021-11-27] MEDS ORDERED: SODIUM CHLORIDE 0.9% 250 ML IV PRN ×2 (17:56→18:07)
[2021-11-27 18:08] LABS: INR 1.6 (0.9-1.1); Prothrombin Time 16.8 Seconds (9.0-12.0)
[2021-11-27] MEDS ORDERED: HYDROCORTISONE ACETATE 25 MG SUPP PR STA (18:08)
[2021-11-27 18:12] LABS: Hematocrit (blood only) 21.5 % (37-47); Hemoglobin 6.9 g/dL (12.0-16.0); Mean Corpuscular Hemoglobin 29.1 pg (25-34); Mean Corpuscular Hgb Conc 32.1 g/dL (32-36); Mean Corpuscular Volume 90.7 fL (80-100); Mean Platelet Volume 11.5 fL (7.4-10.4); Platelet Count 121 K/uL (130-400); RDW Coefficient of Variation 18.4 % (11.5-14.5); RDW Standard Deviation 60.8 fL (36.4-46.3); Red Blood Count 2.37 M/uL (4.2-5.4); White Blood Count 3.43 K/uL (4.8-10.8)
[2021-11-27 18:21] LABS: Albumin Globulin Ratio 0.8 (0.9-2); Albumin Level 2.8 gm/dl (3.4-5.0); BUN Creatinine Ratio 10.8 (10-20); Bilirubin,Total 0.8 mg/dl (0.2-1.0); Creatinine Clr Calc Pharmacy 40.2 ml/min; Est GFR (African American) 56.1 ml/min; Est GFR (Non-African American) 48.4 ml/min; Globulin 3.7 gm/dl (2.5-4.0); Potassium 3.1 mmol/L (3.5-5.1); Total Protein 6.5 gm/dl (6.0-8.3)
[2021-11-27 18:28] LABS: Basophils # (auto) 0.04 K/uL (0-0.2); Basophils % (auto) 1.2 %; Eosinophils % (auto) 2.9 %; Giant Platelets 1+; Immature Granulocytes # (auto) 0.01 K/uL (0.00-0.02); Immature Granulocytes % (auto) 0.3 %; Lymphocytes # (auto) 1.18 K/uL (1.2-3.4); Lymphocytes % (auto) 34.4 %; Monocytes # (auto) 0.54 K/uL (0.11-0.59); Monocytes % (auto) 15.7 %; Neutrophils # (auto) 1.56 K/uL (1.4-6.5); Neutrophils % (auto) 45.5 %; Polychromasia 1+
--- NOTE | 2021-11-27 19:29 | History & Physical Report ---
Date of Service November 27, 2021 Assessment & Plan (1) Anemia: (2) Hypokalemia: (3) GI bleed: (4) Pancytopenia: (5) Depression: (6) GERD (gastroesophageal reflux disease): Plan: 61-year-old female past medical history significant for liver cirrhosis with associated ascites, esophageal varices, and pancytopenia, history of alcohol use disorder, depression, GERD admitted for acute blood loss anemia. Acute blood loss anemia: Presents with hemoglobin of 6.9 with mild hypotension. Blood consent performed; patient will receive 1 unit PRBCs with repeat CBC following. Bleeding is more likely secondary to lower GI source however patient does have a known history of varices and we will put patient on Protonix for now and continue home propranolol. Gastroenterology consulted and appreciate recommendations. Liver cirrhosis, esophageal varices, pancytopenia: All are sequelae of history of alcohol use. Chronic elevated INR. Patient's cell lines are all decreased but this is stable and chronic save for her anemia. Known history of liver cirrhosis with frequent follow up with Dr. Bora Blancas, including later this week. Patient not showing any alcohol withdrawal symptoms; AWSS protocol will not be initiated at this time, and can be considered if needed. Daily CBC while admitted. Hypokalemia: K 3.1 on admission. KCl 40meq PO elixir ordered. Repeat BMP in AM. Depression: Continue citalopram. Code Status: FULL CODE FEN: NPO DVT ppx: SCDs Dispo: Med/Surg with Telemetry History of Present Illness Chief Complaint: Anemia Primary Care Provider: BARRIE England 61-year-old female past medical history significant for liver cirrhosis with associated ascites, esophageal varices, and pancytopenia, history of alcohol use disorder, depression, GERD presented to the ER at request of outside provider due to outside lab work revealing hemoglobin of 6.9. Patient herself denies chest pain, shortness of breath, abdominal pain, diarrhea, nausea, vomiting, hematemesis. She endorses some bright red blood in her stool and on wiping for the last 2 weeks. She has history of anal fissures and hemorrhoids in the past. She has follow-up with GI in the office this upcoming Friday, and has her routine EGD scheduled for April. In the ER patient was also noted to have AST 74, ALT 22, alk phos 116, potassium 3.1. Patient was ordered 1u PRBCs and hospitalist service was consulted for admission. Allergies Allergy/AdvReac Type Severity Reaction Status Date / Time No Known Allergies Allergy Verified 11/27/21 18:01 Home Medications Medication Instructions Recorded Confirmed Type citalopram 20 mg tablet (Celexa) 20 mg PO QAM #30 tab 10/02/20 11/27/21 Rx furosemide 40 mg tablet 40 mg PO QAM PRN #30 tab 07/16/21 11/27/21 Rx multivitamin 1 tab PO QAM 07/20/21 11/27/21 History folic acid 800 mcg tablet 0.8 mg PO DAILY 11/27/21 11/27/21 History pantoprazole 40 mg tablet,delayed 40 mg PO DAILY 11/27/21 11/27/21 History release propranolol 20 mg tablet 10 mg PO BID 11/27/21 11/27/21 History Past Med/Surg History Medical History Alcoholic cirrhosis of liver Anemia Ascites Adames's esophagus Cholelithiasis Common bile duct dilatation Depression Esophageal varices GERD (gastroesophageal reflux disease) History of recent blood transfusion 05/26/21 @ [facility] Macular degeneration of both eyes Pancytopenia Scoliosis Surgical History H/O shoulder surgery right H/O wrist surgery left History of arthroscopy of right knee History of colonoscopy History of dilatation and curettage History of esophagogastroduodenoscopy (EGD) History of hand surgery tendon surgery on pinky finger on right hand History of placement of ear tubes History of tonsillectomy and adenoidectomy History of tooth extraction all teeth removed Hx of lumpectomy benign off breast Family History Mother Hx of cholecystectomy Hypertension Other Cancer Gallbladder disease Lung cancer No family history of adverse response to anesthesia Social History Smoking Status: Never smoker Second Hand Exposure: No; Hx Alcohol Use: Yes Alcohol type: other Hx Substance Use: No Preferred Language: Yemeni Communication Ability: Effective Oil Burner Required: No Beliefs That Will Affect Care: None Current Living Situation: Spouse current occupational status: employed Feels Safe at Home: Yes Assistive Devices: Denture - Upper, Denture - Lower and Glasses Review of Systems Review of Systems: All systems reviewed & are unremarkable except as noted in HPI & below Constitutional: no fever, no chills and no malaise Respiratory: no cough and no dyspnea Cardiovascular: no chest pain, no palpitations and no edema Gastrointestinal: no abdominal pain, no constipation and no diarrhea/loose stools Genitourinary: no dysuria and no hematuria Physical Exam Constitutional: WD/WN, vitals as above Eyes: PERRL, conjunctivae normal, anicteric sclerae ENMT: external ear and nose normal, oropharynx normal Neck: normal visual inspection Respiratory: normal respiratory effort, lungs clear to auscultation Cardiovascular: RRR, no murmur, no edema Gastrointestinal (Abdomen): normal bowel sounds, soft, nontender, no hepatosplenomegaly Musculoskeletal: no cyanosis or clubbing, extremities motor strength 5/5 Skin: no rashes, warm and dry several small non-thrombosed external hemorrhoids; no evidence of anal fissures Neurologic: Normal speech. PERRLA, EOMI, no nystagmus. Normal visual acuity bilaterally. Bilateral UE, LE, and face without sensory or motor deficits. No pronator drift. No tremor. Psychiatric: A+Ox3, euthymic affect Results & Data Results & Data ([facility]) Vital Signs (Past 12 Hours) Vital Signs Temp Pulse Pulse Resp BP BP Pulse Ox 11/27/21 17:44 85 84 14 107/57 L 98 11/27/21 17:25 36.7 C 98 H 16 93/62 L 97 Laboratory Results Laboratory Results WBC 3.43 K/uL (4.8-10.8) L 11/27/21 17:42 RBC 2.37 M/uL (4.2-5.4) L 11/27/21 17:42 Hgb 6.9 g/dL (12.0-16.0) L* 11/27/21 17:42 Hct 21.5 % (37-47) L 11/27/21 17:42 MCV 90.7 fL (80-100) 11/27/21 17:42 MCH 29.1 pg (25-34) 11/27/21 17:42 MCHC 32.1 g/dL (32-36) 11/27/21 17:42 RDW Std Deviation 60.8 fL (36.4-46.3) H 11/27/21 17:42 RDW Coeff of Ana 18.4 % (11.5-14.5) H 11/27/21 17:42 Plt Count 121 K/uL (130-400) L 11/27/21 17:42 MPV 11.5 fL (7.4-10.4) H 11/27/21 17:42 Immature Gran % (Auto) 0.3 % 11/27/21 17:42 Neut % (Auto) 45.5 % 11/27/21 17:42 Lymph % (Auto) 34.4 % 11/27/21 17:42 [place] % (Auto) 15.7 % 11/27/21 17:42 Eos % (Auto) 2.9 % 11/27/21 17:42 Baso % (Auto) 1.2 % 11/27/21 17:42 Neut # (Auto) 1.56 K/uL (1.4-6.5) 11/27/21 17:42 Lymph # (Auto) 1.18 K/uL (1.2-3.4) L 11/27/21 17:42 [place]pson # (Auto) 0.54 K/uL (0.11-0.59) 11/27/21 17:42 Eos # (Auto) 0.10 K/uL (0-0.5) 11/27/21 17:42 Baso # (Auto) 0.04 K/uL (0-0.2) 11/27/21 17:42 Immature Gran # (Auto) 0.01 K/uL (0.00-0.02) 11/27/21 17:42 Giant Platelets 1+ 11/27/21 17:42 Polychromasia 1+ 11/27/21 17:42 PT 16.8 Seconds (9.0-12.0) H 11/27/21 17:42 INR 1.6 (0.9-1.1) H 11/27/21 17:42 Sodium 139 mmol/L (136-145) 11/27/21 17:42 Potassium 3.1 mmol/L (3.5-5.1) L 11/27/21 17:42 Chloride 104 mmol/L (98-107) 11/27/21 17:42 Carbon Dioxide 24 mmol/L (21-32) 11/27/21 17:42 Anion Gap 11 (3-11) 11/27/21 17:42 BUN 13 mg/dl (6-23) 11/27/21 17:42 Creatinine 1.20 mg/dl (0.6-1.2) 11/27/21 17:42 Est Cr Clr Drug Dosing 40.2 ml/min 11/27/21 17:42 Est GFR ( Amer) 56.1 ml/min 11/27/21 17:42 Est GFR (Non-Af Amer) 48.4 ml/min 11/27/21 17:42 BUN/Creatinine Ratio 10.8 (10-20) 11/27/21 17:42 Glucose 113 mg/dl (70-99(Fasting)) H 11/27/21 17:42 Calcium 7.0 mg/dl (8.5-10.1) L 11/27/21 17:42 Total Bilirubin 0.8 mg/dl (0.2-1.0) 11/27/21 17:42 AST 74 U/L (13-39) H 11/27/21 17:42 ALT 22 U/L (7-52) 11/27/21 17:42 Alkaline Phosphatase 116 U/L (34-104) H 11/27/21 17:42 Total Protein 6.5 gm/dl (6.0-8.3) 11/27/21 17:42 Albumin 2.8 gm/dl (3.4-5.0) L 11/27/21 17:42 Globulin 3.7 gm/dl (2.5-4.0) 11/27/21 17:42 Albumin/Globulin Ratio 0.8 (0.9-2) L 11/27/21 17:42 SARS-CoV-2, RNA, NAAT NEGATIVE (NEGATIVE) 11/27/21 Unknown Blood Type O Positive 11/27/21 17:42 Antibody Screen NEGATIVE 11/27/21 17:42 Crossmatch See Detail 11/27/21 17:42 Supervising Physician Co-Signing Physician Notes Patient seen and examined, chart reviewed, case discussed with Dr. Dsouza and I agree with the assessment and plan as above. In brief, patient is a 61yo female with history of cirrhosis presenting with BRBPR x 2+ weeks, norm ochromic/normocytic anemia with Hgb=6.9 On exam she is afebrile, HD stable, NAD. Resting comfortably Skin - intact, no rash/lesions, no jaundice HEENT - MMM, Neck supple Heart - +S1/S2, regular, no m/r/g Lungs - CTA Abd - +BS, soft, NT, mild distention Ext - warm, well perfused, no clubbing/cyanosis/edema Rectal - external hemorrhoids present, no thrombosis, no active bleeding Labs and images reviewed Assessment/Plan 61yo female with cirrhosis presenting with BRBPR, anemia with Hgb=6.9 -Protonix - doubt upper GI source -Bowel regimen -Transfusion 1u PRBCs, monitor CBC -Daily weights - patient states she has gained some weight recently ?fluid - possible need for diuresis -Remainder as above Resident Activity Tracking Resident Involvement: Resident Care Provided Care Provided: Adult Hospital Medicine
[2021-11-27] MEDS ORDERED: POTASSIUM CHLORIDE CRTAB 20 MEQ TABCR PO STA (19:55)
[2021-11-27] MEDS ORDERED: POTASSIUM CHLORIDE 20 MEQ/15 ML UDC PO STA (19:57)
[2021-11-27] MEDS: PANTOprazole 40 MG in SYRINGE 0 ML IV SCH (20:00)
--- NOTE | 2021-11-27 20:13 | Emergency Department Note ---
Impression & Plan GI bleed, Acute blood loss anemia, H/O upper gastrointestinal hemorrhage, Cirrhosis of liver ED Provider Note CHIEF COMPLAINT: rectal bleed, anemia HISTORY OF PRESENT ILLNESS: This 61-year-old female patient presents to the emergency department with complaints of blood per rectum. She states she was sent in by her nurse practitioner gastroenterology for low blood counts. Patient was told she would need a blood transfusion. In the past the patient has suffered from upper GI bleeds but states that she feels differently this time. She does not have any upper abdominal discomfort necessarily. She has some chronic right upper quadrant abdominal pain which she attributes to her liver. Patient states she does have bright red blood with a bowel movement. She states it was about the same amount that you would have with a heavy menstrual flow. She denies any chest pain, shortness of breath or lightheadedness. She states she was out tending to her horses for most of the day without difficulty. REVIEW OF SYSTEMS: A review of systems was performed with positives and pertinent negatives listed in the history of present illness. 10 systems were reviewed and are otherwise negative. ALLERGIES: see below MEDICATIONS: see below PMH: see below SOCIAL HISTORY: see below DDx: Diverticulosis, AVM, coagulopathy, colitis, inflammatory bowel disease, malignancy, Norma-Kyle tear, esophagitis, peptic ulcer disease, variceal bleed, gastritis, epistaxis, fissure, hemorrhoids, as well as other pathologies. PHYSICAL EXAM: Vital signs reviewed. General: Well-appearing 61-year-old female, in no significant distress. HEENT: No scleral icterus, PERRLA, neck supple. Pale conjunctiva Cardiovascular: Regular rate and rhythm, no extra sounds. Pulmonary: Clear to auscultation bilaterally, normal work of breathing. Abdomen: Soft, nontender, nondistended, positive bowel sounds. Musculoskeletal: Atraumatic, no peripheral edema. Rectal: Tender to FRANCISCA, small external rectal hemorrhoids are noted. No gross blood however guaiac positive with minimal stool obtained. Neurologic: Patient awake alert and oriented x 3, speech is clear Skin: Warm, dry, no rash EMERGENCY DEPARTMENT COURSE/MDM: This patient was evaluated and appeared to be in no significant distress. IV access was obtained and laboratory work was drawn. Patient was placed on truck sales manager normal sinus rhythm. Laboratory work reveals a significant anemia with a hemoglobin of 6.9. Patient is guaiac positive from below. She does have a history of cirrhotic liver and GI bleeds. She admits to taking ibuprofen prior to arrival for pain at the rectum. Patient did consent to transfusion of blood. Patient's case was discussed with the hospitalist service who has agreed to evaluate the patient for admission and further management. MONITORING: An order for cardiac monitoring was placed and the patient is noted to be in a NSR at 84 beats per minute. DISPOSITION: Admit I have personally spent 32 minutes of critical care time in the direct management of this patient. This was a life/limb threatening event. This 32 minutes is in excess of all separately billable procedures. Past Med/Surg History Medical History (Updated 11/29/21 @ 15:04 by Baljeet Higginbotham DO) Alcoholic cirrhosis of liver Anemia Ascites Adames's esophagus Cholelithiasis Common bile duct dilatation Depression Esophageal varices GERD (gastroesophageal reflux disease) History of recent blood transfusion 05/26/21 @ [facility] Macular degeneration of both eyes Pancytopenia Scoliosis Surgical History H/O shoulder surgery right H/O wrist surgery left History of arthroscopy of right knee History of colonoscopy History of dilatation and curettage History of esophagogastroduodenoscopy (EGD) History of hand surgery tendon surgery on pinky finger on right hand History of placement of ear tubes History of tonsillectomy and adenoidectomy History of tooth extraction all teeth removed Hx of lumpectomy benign off breast Family History Mother Hx of cholecystectomy Hypertension Other Cancer Gallbladder disease Lung cancer No family history of adverse response to anesthesia Social History Smoking Status: Former smoker Second Hand Exposure: No; Hx Alcohol Use: Yes (rehab 1999) Alcohol type: wine Hx Substance Use: No Preferred Language: Slovak Communication Ability: Effective Metrology Engineer Required: No Beliefs That Will Affect Care: None Current Living Situation: Spouse current occupational status: employed Feels Safe at Home: Yes Assistive Devices: None Allergies Allergies Allergy/AdvReac Type Severity Reaction Status Date / Time No Known Allergies Allergy Verified 11/29/21 09:56 Home Meds Home Medications Medication Instructions Recorded Confirmed multivitamin 1 tab PO QAM 07/20/21 11/27/21 folic acid 800 mcg tablet 0.8 mg PO DAILY 11/27/21 11/27/21 pantoprazole 40 mg tablet,delayed 40 mg PO DAILY 11/27/21 11/27/21 release propranolol 20 mg tablet 10 mg PO BID 11/27/21 11/27/21 Previous Rx's Medication Instructions Recorded citalopram 20 mg tablet (Celexa) 20 mg PO QAM #30 tab 10/02/20 furosemide 40 mg tablet 40 mg PO QAM PRN #30 tab 07/16/21 Results & Data (ED) Vital Signs Vital Signs - 24 hr 11/27/21 17:25 11/27/21 17:44 Temperature 36.7 C Temperature Source Temporal Artery Scan Pulse Rate 98 H 85 Pulse Rate [Apical] 84 Pulse Rhythm Regular Pulse Rhythm [Apical] Regular Pulse Strength [Apical] Normal Respiratory Rate 16 14 Respiratory Effort / Characteristics Non-Labored Non-Labored Spontaneous Respiratory Depth Normal Normal Respiratory Pattern Regular Blood Pressure 93/62 L Blood Pressure [Left Arm] 107/57 L Blood Pressure Mean 72 Blood Pressure Mean [Left Arm] 73 Blood Pressure Position [Left Arm] Semi-fowlers Pulse Oximetry 97 98 Oxygen Delivery Method Room Air Room Air Sepsis Recent Fever Within 48 Hours No Sepsis New/Unexplained Change in Mental Status No Sepsis Action Taken by Nursing No Action Required Home Medications Current Medication List: was personally reviewed by me Laboratory Data Attestation: I reviewed the patient's lab results. Result diagrams: 11/29/21 06:53 11/29/21 06:53 Lab Results 11/27/21 11/27/21 11/27/21 Range/Units 17:42 17:42 17:42 WBC 3.43 L (4.8-10.8) K/uL RBC 2.37 L (4.2-5.4) M/uL Hgb 6.9 L* (12.0-16.0) g/dL Hct 21.5 L (37-47) % MCV 90.7 (80-100) fL MCH 29.1 (25-34) pg MCHC 32.1 (32-36) g/dL RDW Std Deviation 60.8 H (36.4-46.3) fL RDW Coeff of Ana 18.4 H (11.5-14.5) % Plt Count 121 L (130-400) K/uL MPV 11.5 H (7.4-10.4) fL Immature Gran % (Auto) 0.3 % Neut % (Auto) 45.5 % Lymph % (Auto) 34.4 % [place] % (Auto) 15.7 % Eos % (Auto) 2.9 % Baso % (Auto) 1.2 % Neut # (Auto) 1.56 (1.4-6.5) K/uL Lymph # (Auto) 1.18 L (1.2-3.4) K/uL [place] # (Auto) 0.54 (0.11-0.59) K/uL Eos # (Auto) 0.10 (0-0.5) K/uL Baso # (Auto) 0.04 (0-0.2) K/uL Immature Gran # (Auto) 0.01 (0.00-0.02) K/uL Giant Platelets 1+ Polychromasia 1+ PT 16.8 H (9.0-12.0) Seconds INR 1.6 H (0.9-1.1) Sodium 139 (136-145) mmol/L Potassium 3.1 L (3.5-5.1) mmol/L Chloride 104 (98-107) mmol/L Carbon Dioxide 24 (21-32) mmol/L Anion Gap 11 (3-11) BUN 13 (6-23) mg/dl Creatinine 1.20 (0.6-1.2) mg/dl Est Cr Clr Drug Dosing 40.2 ml/min Est GFR ( Amer) 56.1 ml/min Est GFR (Non-Af Amer) 48.4 ml/min BUN/Creatinine Ratio 10.8 (10-20) Glucose 113 H (70-99(Fasting)) mg/dl Calcium 7.0 L (8.5-10.1) mg/dl Total Bilirubin 0.8 (0.2-1.0) mg/dl AST 74 H (13-39) U/L ALT 22 (7-52) U/L Alkaline Phosphatase 116 H (34-104) U/L Total Protein 6.5 (6.0-8.3) gm/dl Albumin 2.8 L (3.4-5.0) gm/dl Globulin 3.7 (2.5-4.0) gm/dl Albumin/Globulin Ratio 0.8 L (0.9-2) Blood Type Antibody Screen Crossmatch 11/27/21 Range/Units 17:42 WBC (4.8-10.8) K/uL RBC (4.2-5.4) M/uL Hgb (12.0-16.0) g/dL Hct (37-47) % MCV (80-100) fL MCH (25-34) pg MCHC (32-36) g/dL RDW Std Deviation (36.4-46.3) fL RDW Coeff of Ana (11.5-14.5) % Plt Count (130-400) K/uL MPV (7.4-10.4) fL Immature Gran % (Auto) % Neut % (Auto) % Lymph % (Auto) % [place] % (Auto) % Eos % (Auto) % Baso % (Auto) % Neut # (Auto) (1.4-6.5) K/uL Lymph # (Auto) (1.2-3.4) K/uL [place] # (Auto) (0.11-0.59) K/uL Eos # (Auto) (0-0.5) K/uL Baso # (Auto) (0-0.2) K/uL Immature Gran # (Auto) (0.00-0.02) K/uL Giant Platelets Polychromasia PT (9.0-12.0) Seconds INR (0.9-1.1) Sodium (136-145) mmol/L Potassium (3.5-5.1) mmol/L Chloride (98-107) mmol/L Carbon Dioxide (21-32) mmol/L Anion Gap (3-11) BUN (6-23) mg/dl Creatinine (0.6-1.2) mg/dl Est Cr Clr Drug Dosing ml/min Est GFR ( Amer) ml/min Est GFR (Non-Af Amer) ml/min BUN/Creatinine Ratio (10-20) Glucose (70-99(Fasting)) mg/dl Calcium (8.5-10.1) mg/dl Total Bilirubin (0.2-1.0) mg/dl AST (13-39) U/L ALT (7-52) U/L Alkaline Phosphatase (34-104) U/L Total Protein (6.0-8.3) gm/dl Albumin (3.4-5.0) gm/dl Globulin (2.5-4.0) gm/dl Albumin/Globulin Ratio (0.9-2) Blood Type O Positive Antibody Screen NEGATIVE Crossmatch See Detail Administered Medications Discontinued Medications Citalopram Hydrobromide (Citalopram 20 Mg Tab) 20 mg PO QAM FELISHA Stop: 12/28/21 08:59 Last Admin: 11/29/21 08:47 Dose: 20 mg Documented by: [id number] Admin: 11/28/21 09:06 Dose: 20 mg Documented by: [id number] Folic Acid (Folic Acid 400 Mcg Tab) 800 mcg PO DAILY FELISHA Stop: 12/28/21 08:59 Last Admin: 11/29/21 08:47 Dose: 800 mcg Documented by: [id number] Admin: 11/28/21 09:07 Dose: 800 mcg Documented by: [id number] Hydrocortisone (Hydrocortisone Acetate 25 Mg Supp) 25 mg DC NOW STA Stop: 11/27/21 18:09 Last Admin: 11/27/21 18:28 Dose: 25 mg Documented by: [id number] Pantoprazole Sodium 40 mg/ (Syringe) 10 mls @ 5 mls/min IV BID FELISHA Stop: 12/27/21 20:59 Last Admin: 11/29/21 12:20 Dose: 5 mls/min Documented by: [id number] Admin: 11/28/21 19:40 Dose: 5 mls/min Documented by: [id number] Admin: 11/28/21 09:08 Dose: 5 mls/min Documented by: [id number] Admin: 11/27/21 20:00 Dose: 5 mls/min Documented by: [id number] Phytonadione 10 mg/ Dextrose 51 mls @ 102 mls/hr IV ONE ONE Stop: 11/29/21 08:44 Last Infusion: 11/29/21 09:25 Dose: 0 mls/hr Documented by: [id number] Admin: 11/29/21 08:50 Dose: 102 mls/hr Documented by: [id number] Lidocaine (Lidocaine 5% 1 Patch) 1 patch TD QAM FELISHA Stop: 12/28/21 09:29 Last Admin: 11/29/21 08:48 Dose: Not Given Documented by: [id number] Admin: 11/28/21 11:23 Dose: 1 patch Documented by: [id number] Miscellaneous (Remove Lidoderm Patch) 1 ea N/A DAILY@2100 [facility] Stop: 12/28/21 20:59 Last Admin: 11/28/21 19:40 Dose: 1 ea Documented by: [id number] Multivitamins (Multivitamin Tab) 1 tab PO QAM [facility] Stop: 12/28/21 08:59 Last Admin: 11/29/21 08:47 Dose: 1 tab Documented by: [id number] Admin: 11/28/21 09:06 Dose: 1 tab Documented by: [id number] Polyethylene Glycol/Electrolytes (Lavage Solution 4000ml) 16 dose PO TODAY@1630 [facility] Stop: 11/28/21 23:59 Last Admin: 11/28/21 17:15 Dose: 16 dose Documented by: [id number] Potassium Chloride (Potassium Chloride Crtab 20 Meq Tabcr) 40 meq PO NOW STA Stop: 11/27/21 19:56 Last Admin: 11/27/21 20:25 Dose: Not Given Documented by: [id number] Potassium Chloride (Potassium Chloride 20 Meq/15 Ml Udc) 40 meq PO NOW STA Stop: 11/27/21 19:58 Last Admin: 11/27/21 20:16 Dose: 40 meq Documented by: [id number] Propranolol HCl (Propranolol Hcl 10 Mg Tab) 10 mg PO BID [facility] Stop: 12/27/21 22:42 Last Admin: 11/29/21 08:47 Dose: 10 mg Documented by: [id number] Admin: 11/28/21 19:40 Dose: 10 mg Documented by: [id number] Admin: 11/28/21 09:06 Dose: 10 mg Documented by: [id number] Admin: 11/27/21 23:08 Dose: 10 mg Documented by: [id number] Blood Pressure Blood Pressure Findings: Low blood pressure Blood Pressure Disposition: further management by hospitalist Discharge Plan Visit Data Chief Complaint: Abnormal Labs/Diagnostic Testing Stated Complaint: ABNORMAL LABS, HEMOGLOBIN IS LOW ED Provider: Mireya Potts Discharge Problem: GI bleed, Acute blood loss anemia, H/O upper gastrointestinal hemorrhage, Cirrhosis of liver Patient Disposition: Admitted As Inpatient Discharge Instructions Interventions: ED Discharge Assessment Last Done: 11/27/21 21:54 Discharge Problem: GI bleed Qualifiers: GI bleed type/associated pathology: anorectal hemorrhage Qualified Code(s): K62.5 - Hemorrhage of anus and rectum Cirrhosis of liver Qualifiers: Hepatic cirrhosis type: alcoholic cirrhosis Ascites presence: unspecified Qualified Code(s): K70.30 - Alcoholic cirrhosis of liver without ascites
[2021-11-27] MEDS ORDERED: ACETAMINOPHEN 325 MG TAB PO PRN (22:43)
[2021-11-27] MEDS ORDERED: ONDANSETRON INJ 2 MG/ML 2 ML VIAL IV PRN (22:43)
[2021-11-27] MEDS: PROPRANOLOL HCL 10 MG TAB PO SCH (23:08)
[2021-11-28 00:44] LABS: Appearance Urine Clear (Clear); Bacteria Urine Automated Negative (Negative); Bilirubin Urine Negative (Negative); Blood Urine Trace (Negative); Color Urine Dark Yellow; Epithelial Cell Urine Auto >30 /lpf (0-5); Glucose Urine UA Negative (Negative); Ketones Urine Trace (Negative); Leukocyte Esterase Urine 1+ (Negative); Nitrite Urine Negative (Negative); Protein Urine Negative (Negative); Specific Gravity Urine 1.024 (1.000-1.030); Urobilinogen Urine Negative (Negative)
[2021-11-28 07:18] LABS: Hematocrit (blood only) 30.7 % (37-47); Mean Corpuscular Hemoglobin 29.2 pg (25-34); Mean Corpuscular Hgb Conc 32.6 g/dL (32-36); Mean Corpuscular Volume 89.8 fL (80-100); Mean Platelet Volume 10.5 fL (7.4-10.4); RDW Coefficient of Variation 16.7 % (11.5-14.5); RDW Standard Deviation 54.6 fL (36.4-46.3); Red Blood Count 3.42 M/uL (4.2-5.4); White Blood Count 2.67 K/uL (4.8-10.8)
[2021-11-28 07:25] LABS: Basophils # (auto) 0.02 K/uL (0-0.2); Basophils % (auto) 0.7 %; Eosinophils # (auto) 0.05 K/uL (0-0.5); Eosinophils % (auto) 1.9 %; Immature Granulocytes # (auto) 0.02 K/uL (0.00-0.02); Immature Granulocytes % (auto) 0.7 %; Lymphocytes # (auto) 0.94 K/uL (1.2-3.4); Lymphocytes % (auto) 35.2 %; Monocytes # (auto) 0.31 K/uL (0.11-0.59); Monocytes % (auto) 11.6 %; Neutrophils # (auto) 1.33 K/uL (1.4-6.5); Neutrophils % (auto) 49.9 %; Platelet Count 71 K/uL (130-400); Platelet Estimate Decreased (Normal); Target Cells 1+
[2021-11-28 07:27] LABS: BUN Creatinine Ratio 11.5 (10-20); Calcium 6.9 mg/dl (8.5-10.1); Creatinine Clr Calc Pharmacy 39.6 ml/min; Est GFR (Non-African American) 47.4 ml/min; Potassium 3.9 mmol/L (3.5-5.1)
--- NOTE | 2021-11-28 07:45 | Gastrointestinal Consultation ---
Date of Consultation November 28, 2021 Assessment & Plan (1) GI bleed: 61 year old female admitted with anemia, hgb 6 s/p 2 unites rbc with hgb 10 this AM, normal BUN. She has history of ETHO cirrhosis, denies ETOH to me, last EGD in 07/2021 w/o evidence of varices. Suspect LGIB bleed, hemorrhoidal vs AVM vs other No indication for octreotide or IV PPI PO PPI once daily Can start clear liquid diet Golytely 4L NPO after midnight for EGD/Colonoscopy tomorrow Low NA diet Can continue other home medications Ensure INR < 1.6 for examination tomorrow Thank you for allowing us to participate in the care of this patient. Please call with any acute changes, questions or concerns. Please see addendum below with additional recommendation from my supervising physician. Supervising Physician Co-Signing Physician Notes I saw and evaluated the patient. She presented to the hospital for evaluation of anemia and recurrent hematochezia over the last few weeks. The patient notes that she does have bright red blood on tissue paper when she wipes. She does have a history of liver disease as a result of alcohol abuse in the past but is presently abstinent. Her last upper endoscopy was with the [facility] physician group about 5 months ago and notable for no esophageal varices. She denies having nausea, vomiting, emesis or melena. Physical examination No obvious distress, no scleral icterus noted No tenderness noted Impression patient presents with intermittent hematochezia, this is likely related to an anorectal cause. Given her profound anemia I think it would be prudent to proceed with colonoscopy at next available. We will also make arrangements for upper endoscopy given her history of liver disease. History of Present Illness Reason for Consultation: anemia Requesting Physician: Deejay Attending Physician: Nithya Villalba, DO History of Present Illness 61 year old female with history of cirrhosis (associated ascites on diuresis PRN, esophageal varices, and pancytopenia) alcohol use disorder, depression, GERD admitted through the ED for anemia, hemoglobin of 6.9 on outside labs. GI as asked to evaluated. Feeling well. No abd pain. No nausea, vomiting. Denies GERD. Denies any melena. Has been having intermittent hematochezia x 1-2 weeks. This is bright red, on toilet tissue and limited to BMs. She does have rectal pain. No fever, chills, CP, SOB. S/P RBC x 2 units with HGB this AM 10. BUN not elevated. Vitals stable. EGD 2021: - Benign-appearing esophageal stenosis. Dilated. - Small hiatal hernia. - Normal examined duodenum. - No specimens collected. ERCP 2020: The major papilla was located entirely within a diverticulum. - Prior biliary sphincterotomy appeared open. - A filling defect consistent with a stone and sludge was seen on the cholangiogram. - The entire main bile duct was moderately dilated. - Choledocholithiasis was found. Complete removal was accomplished by balloon extraction. - The biliary tree was swept. - Indomethacin given to decrease risk of post-ERCP pancreatitis. EUS 2020: There was dilation in the common bile duct which measured up to 7 mm. - One stone was visualized endosonographically in the common bile duct. - Multiple stones and wall thickening was visualized endosonographically in the gallbladder. - There was no evidence of significant pathology in the visualized portion of the liver. - There was no sign of significant pathology in the entire pancreas. - No specimens collected. EGD 2020: - Benign-appearing esophageal stenosis. Dilated to 42 Fr. - Grade II esophageal varices with no bleeding and no stigmata of recent bleeding. - Normal stomach. - Normal examined duodenum. - No specimens collected. Allergies Allergy/AdvReac Type Severity Reaction Status Date / Time No Known Allergies Allergy Verified 11/27/21 18:01 Home Medications Medication Instructions Recorded Confirmed Type citalopram 20 mg tablet (Celexa) 20 mg PO QAM #30 tab 10/02/20 11/27/21 Rx furosemide 40 mg tablet 40 mg PO QAM PRN #30 tab 07/16/21 11/27/21 Rx multivitamin 1 tab PO QAM 07/20/21 11/27/21 History folic acid 800 mcg tablet 0.8 mg PO DAILY 11/27/21 11/27/21 History pantoprazole 40 mg tablet,delayed 40 mg PO DAILY 11/27/21 11/27/21 History release propranolol 20 mg tablet 10 mg PO BID 11/27/21 11/27/21 History Patient History Medical History Alcoholic cirrhosis of liver Anemia Ascites Adames's esophagus Cholelithiasis Common bile duct dilatation Depression Esophageal varices GERD (gastroesophageal reflux disease) History of recent blood transfusion 05/26/21 @ [facility] Macular degeneration of both eyes Pancytopenia Scoliosis Surgical History H/O shoulder surgery right H/O wrist surgery left History of arthroscopy of right knee History of colonoscopy History of dilatation and curettage History of esophagogastroduodenoscopy (EGD) History of hand surgery tendon surgery on pinky finger on right hand History of placement of ear tubes History of tonsillectomy and adenoidectomy History of tooth extraction all teeth removed Hx of lumpectomy benign off breast Family History Mother Hx of cholecystectomy Hypertension Other Cancer Gallbladder disease Lung cancer No family history of adverse response to anesthesia Social History Smoking Status: Former smoker Smoking End Date: 20 years ago; Second Hand Exposure: No; Do You Dip or Chew Tobacco: No; Tobacco Cessation Education Requested by Patient: No Hx Alcohol Use: Yes (rehab 2000) Alcohol type: wine Hx Substance Use: No Preferred Language: Telugu Communication Ability: Effective [place] [employer] Required: No Beliefs That Will Affect Care: None Current Living Situation: Spouse current occupational status: employed Other Information That Helps Us Care for You: No Feels Safe at Home: Yes Safety Concerns: Feels Safe At This Time Assistive Devices: None Review of Systems Review of Systems: All systems reviewed & are unremarkable except as noted in HPI & below Physical Exam Constitutional: WD/WN, vitals as above Respiratory: normal respiratory effort, lungs clear to auscultation Cardiovascular: Rate/Rhythm: regular rate and regular rhythm Gastrointestinal (Abdomen): normal bowel sounds, soft, nontender, no hepatosplenomegaly Skin: no rashes, warm and dry Results & Data ([facility]) Vital Signs (Past 12 Hours) Vital Signs Temp Pulse Pulse Resp BP BP Pulse Ox 11/28/21 06:44 36.9 C 60 16 145/79 H 96 11/28/21 02:24 36.7 C 80 18 135/84 96 11/28/21 01:25 36.7 C 76 18 121/73 96 11/28/21 00:55 36.7 C 77 18 125/75 98 11/28/21 00:40 36.7 C 78 18 127/78 97 11/28/21 00:22 36.7 C 73 18 121/72 98 11/28/21 00:00 36.7 C 74 18 121/72 96 11/27/21 23:02 37.1 C 79 18 114/62 97 11/27/21 22:33 37.1 C 79 18 114/62 97 11/27/21 22:30 88 11/27/21 21:40 82 15 97 11/27/21 21:30 36.6 C 86 16 106/68 95 11/27/21 21:20 80 16 97 11/27/21 21:10 80 16 96 11/27/21 21:04 37 C 11/27/21 21:02 83 20 105/58 L 94 11/27/21 21:00 86 18 96 11/27/21 20:50 83 24 96 11/27/21 20:40 36.9 C 81 21 97 11/27/21 20:30 81 22 101/59 L 95 11/27/21 20:21 36.6 C 11/27/21 20:20 85 13 117/66 99 11/27/21 20:10 37.1 C 85 14 117/66 97 11/27/21 20:08 37.1 C 11/27/21 20:05 85 14 95/51 L 98 Laboratory Results 11/28/21 11/28/21 11/28/21 Range/Units 06:27 06:27 00:00 WBC 2.67 L (4.8-10.8) K/uL RBC 3.42 L (4.2-5.4) M/uL Hgb 10.0 L D (12.0-16.0) g/dL Hct 30.7 L (37-47) % MCV 89.8 (80-100) fL MCH 29.2 (25-34) pg MCHC 32.6 (32-36) g/dL RDW Std Deviation 54.6 H (36.4-46.3) fL RDW Coeff of Ana 16.7 H (11.5-14.5) % Plt Count 71 L (130-400) K/uL MPV 10.5 H (7.4-10.4) fL Immature Gran % (Auto) 0.7 % Neut % (Auto) 49.9 % Lymph % (Auto) 35.2 % [place] % (Auto) 11.6 % Eos % (Auto) 1.9 % Baso % (Auto) 0.7 % Neut # (Auto) 1.33 L (1.4-6.5) K/uL Lymph # (Auto) 0.94 L (1.2-3.4) K/uL [place] # (Auto) 0.31 (0.11-0.59) K/uL Eos # (Auto) 0.05 (0-0.5) K/uL Baso # (Auto) 0.02 (0-0.2) K/uL Immature Gran # (Auto) 0.02 (0.00-0.02) K/uL Platelet Estimate Decreased L (Normal) Giant Platelets Polychromasia Target Cells 1+ PT (9.0-12.0) Seconds INR (0.9-1.1) Sodium 140 (136-145) mmol/L Potassium 3.9 D (3.5-5.1) mmol/L Chloride 109 H (98-107) mmol/L Carbon Dioxide 23 (21-32) mmol/L Anion Gap 8 (3-11) BUN 14 (6-23) mg/dl Creatinine 1.22 H (0.6-1.2) mg/dl Est Cr Clr Drug Dosing 39.6 ml/min Est GFR ( Amer) 55.0 ml/min Est GFR (Non-Af Amer) 47.4 ml/min BUN/Creatinine Ratio 11.5 (10-20) Glucose 93 (70-99(Fasting)) mg/dl Calcium 6.9 L (8.5-10.1) mg/dl Total Bilirubin (0.2-1.0) mg/dl AST (13-39) U/L ALT (7-52) U/L Alkaline Phosphatase (34-104) U/L Total Protein (6.0-8.3) gm/dl Albumin (3.4-5.0) gm/dl Globulin (2.5-4.0) gm/dl Albumin/Globulin Ratio (0.9-2) Urine Color Dark Yellow Urine Appearance Clear (Clear) Urine pH 6.0 (4.5-7.5) Ur Specific [place] 1.024 (1.000-1.030) Urine Protein Negative (Negative) Urine Glucose (UA) Negative (Negative) Urine Ketones Trace H (Negative) Urine Blood Trace H (Negative) Urine Nitrite Negative (Negative) Urine Bilirubin Negative (Negative) Urine Urobilinogen Negative (Negative) Ur Leukocyte Esterase 1+ H (Negative) Urine WBC (Auto) 10-30 H (0-5) /hpf Urine RBC (Auto) 5-10 H (0-4) /hpf U Hyaline Cast (Auto) 1-5 (0-5) /lpf U Epithel Cells (Auto) >30 H (0-5) /lpf Urine Bacteria (Auto) Negative (Negative) SARS-CoV-2, RNA, NAAT (NEGATIVE) Blood Type Antibody Screen Crossmatch 11/27/21 11/27/21 11/27/21 Range/Units Unknown 17:42 17:42 WBC (4.8-10.8) K/uL RBC (4.2-5.4) M/uL Hgb (12.0-16.0) g/dL Hct (37-47) % MCV (80-100) fL MCH (25-34) pg MCHC (32-36) g/dL RDW Std Deviation (36.4-46.3) fL RDW Coeff of Ana (11.5-14.5) % Plt Count (130-400) K/uL MPV (7.4-10.4) fL Immature Gran % (Auto) % Neut % (Auto) % Lymph % (Auto) % [place] % (Auto) % Eos % (Auto) % Baso % (Auto) % Neut # (Auto) (1.4-6.5) K/uL Lymph # (Auto) (1.2-3.4) K/uL [place] # (Auto) (0.11-0.59) K/uL Eos # (Auto) (0-0.5) K/uL Baso # (Auto) (0-0.2) K/uL Immature Gran # (Auto) (0.00-0.02) K/uL Platelet Estimate (Normal) Giant Platelets Polychromasia Target Cells PT (9.0-12.0) Seconds INR (0.9-1.1) Sodium 139 (136-145) mmol/L Potassium 3.1 L (3.5-5.1) mmol/L Chloride 104 (98-107) mmol/L Carbon Dioxide 24 (21-32) mmol/L Anion Gap 11 (3-11) BUN 13 (6-23) mg/dl Creatinine 1.20 (0.6-1.2) mg/dl Est Cr Clr Drug Dosing 40.2 ml/min Est GFR ( Amer) 56.1 ml/min Est GFR (Non-Af Amer) 48.4 ml/min BUN/Creatinine Ratio 10.8 (10-20) Glucose 113 H (70-99(Fasting)) mg/dl Calcium 7.0 L (8.5-10.1) mg/dl Total Bilirubin 0.8 (0.2-1.0) mg/dl AST 74 H (13-39) U/L ALT 22 (7-52) U/L Alkaline Phosphatase 116 H (34-104) U/L Total Protein 6.5 (6.0-8.3) gm/dl Albumin 2.8 L (3.4-5.0) gm/dl Globulin 3.7 (2.5-4.0) gm/dl Albumin/Globulin Ratio 0.8 L (0.9-2) Urine Color Urine Appearance (Clear) Urine pH (4.5-7.5) Ur Specific [place] (1.000-1.030) Urine Protein (Negative) Urine Glucose (UA) (Negative) Urine Ketones (Negative) Urine Blood (Negative) Urine Nitrite (Negative) Urine Bilirubin (Negative) Urine Urobilinogen (Negative) Ur Leukocyte Esterase (Negative) Urine WBC (Auto) (0-5) /hpf Urine RBC (Auto) (0-4) /hpf U Hyaline Cast (Auto) (0-5) /lpf U Epithel Cells (Auto) (0-5) /lpf Urine Bacteria (Auto) (Negative) SARS-CoV-2, RNA, NAAT NEGATIVE (NEGATIVE) Blood Type O Positive Antibody Screen NEGATIVE Crossmatch See Detail 11/27/21 11/27/21 Range/Units 17:42 17:42 WBC 3.43 L (4.8-10.8) K/uL RBC 2.37 L (4.2-5.4) M/uL Hgb 6.9 L* (12.0-16.0) g/dL Hct 21.5 L (37-47) % MCV 90.7 (80-100) fL MCH 29.1 (25-34) pg MCHC 32.1 (32-36) g/dL RDW Std Deviation 60.8 H (36.4-46.3) fL RDW Coeff of Ana 18.4 H (11.5-14.5) % Plt Count 121 L (130-400) K/uL MPV 11.5 H (7.4-10.4) fL Immature Gran % (Auto) 0.3 % Neut % (Auto) 45.5 % Lymph % (Auto) 34.4 % [place] % (Auto) 15.7 % Eos % (Auto) 2.9 % Baso % (Auto) 1.2 % Neut # (Auto) 1.56 (1.4-6.5) K/uL Lymph # (Auto) 1.18 L (1.2-3.4) K/uL [place] # (Auto) 0.54 (0.11-0.59) K/uL Eos # (Auto) 0.10 (0-0.5) K/uL Baso # (Auto) 0.04 (0-0.2) K/uL Immature Gran # (Auto) 0.01 (0.00-0.02) K/uL Platelet Estimate (Normal) Giant Platelets 1+ Polychromasia 1+ Target Cells PT 16.8 H (9.0-12.0) Seconds INR 1.6 H (0.9-1.1) Sodium (136-145) mmol/L Potassium (3.5-5.1) mmol/L Chloride (98-107) mmol/L Carbon Dioxide (21-32) mmol/L Anion Gap (3-11) BUN (6-23) mg/dl Creatinine (0.6-1.2) mg/dl Est Cr Clr Drug Dosing ml/min Est GFR ( Amer) ml/min Est GFR (Non-Af Amer) ml/min BUN/Creatinine Ratio (10-20) Glucose (70-99(Fasting)) mg/dl Calcium (8.5-10.1) mg/dl Total Bilirubin (0.2-1.0) mg/dl AST (13-39) U/L ALT (7-52) U/L Alkaline Phosphatase (34-104) U/L Total Protein (6.0-8.3) gm/dl Albumin (3.4-5.0) gm/dl Globulin (2.5-4.0) gm/dl Albumin/Globulin Ratio (0.9-2) Urine Color Urine Appearance (Clear) Urine pH (4.5-7.5) Ur Specific [place] (1.000-1.030) Urine Protein (Negative) Urine Glucose (UA) (Negative) Urine Ketones (Negative) Urine Blood (Negative) Urine Nitrite (Negative) Urine Bilirubin (Negative) Urine Urobilinogen (Negative) Ur Leukocyte Esterase (Negative) Urine WBC (Auto) (0-5) /hpf Urine RBC (Auto) (0-4) /hpf U Hyaline Cast (Auto) (0-5) /lpf U Epithel Cells (Auto) (0-5) /lpf Urine Bacteria (Auto) (Negative) SARS-CoV-2, RNA, NAAT (NEGATIVE) Blood Type Antibody Screen Crossmatch
[2021-11-28] MEDS: PROPRANOLOL HCL 10 MG TAB PO SCH ×2 (09:06→19:40)
[2021-11-28] MEDS: CITALOPRAM 20 MG TAB PO SCH (09:06)
[2021-11-28] MEDS: MULTIVITAMIN TAB PO SCH (09:06)
[2021-11-28] MEDS: FOLIC ACID 400 MCG TAB PO SCH (09:07)
[2021-11-28] MEDS: PANTOprazole 40 MG in SYRINGE 0 ML IV SCH ×2 (09:08→19:40)
--- NOTE | 2021-11-28 09:25 | Hospitalist Progress Note ---
Date of Service November 28, 2021 Assessment & Plan (1) Anemia: (2) Hypokalemia: (3) GI bleed: (4) Pancytopenia: (5) Depression: (6) GERD (gastroesophageal reflux disease): Plan: 61-year-old female past medical history significant for liver cirrhosis with associated ascites, esophageal varices, and pancytopenia, history of alcohol use disorder, depression, GERD admitted for acute blood loss anemia. Acute blood loss anemia: Presents with hemoglobin of 6.9 with mild hypotension, hemoglobin 10.0 this morning. Blood consent performed; patient received a total of 2 units since admission. Bleeding is more likely secondary to lower GI source however patient does have a known history of varices and we will put patient on Protonix for now and continue home propranolol. Gastroenterology consulted and appreciate recommendations: -No indication for octreotide or IV PPI -PO PPI once daily -Can start clear liquid diet -Golytely 4L -NPO after midnight for EGD/Colonoscopy tomorrow -Low NA diet -Can continue other home medications -Ensure INR < 1.6 for examination tomorrow INR currently 1.6. Liver cirrhosis, esophageal varices, pancytopenia: All are sequelae of history of alcohol use. Chronic elevated INR. Patient's cell lines are all decreased but this is stable and chronic save for her anemia. Known history of liver cirrhosis with frequent follow up with Dr. Bora Blancas, including later this week. Patient not showing any alcohol withdrawal symptoms; AWSS protocol will not be initiated at this time, and can be considered if needed. Daily CBC while admitted. Hypokalemia: K 3.1 on admission. KCl 40meq PO elixir ordered and given on 11/27 Repeat BMP, showed improvement today at 3.9 Continue to monitor Depression: Continue citalopram. Code Status: FULL CODE FEN: NPO DVT ppx: SCDs Dispo: Med/Surg with Telemetry Admission and Anticipated Discharge Date Admission Date: November 27, 2021 Supervising Physician Co-Signing Physician Notes I also saw the patient with the resident physician and confirmed dominguez portions of the history and physical examination. I agree with the impression and plan as noted in the resident documentation. Exam 125/78, 76, 17, 36.7, 97% on room air 61-year-old female lying supine in bed. She has no complaints at present. Heart regular rate and rhythm Lungs clear with nonlabored respirations Abdomen soft and nontender. No distention is appreciated. Data Hemoglobin 10, platelet count 71 BUN 14, creatinine 1.22 INR 1.6 Urine culture is pending GI bleed Acute blood loss anemia Hypoproliferative thrombocytopenia Appreciate GI consultation EGD/colonoscopy tomorrow Continue Protonix Monitor blood count, platelet, INR Subjective Patient seen at bedside this morning. No acute events reported overnight. Patient received 2 units of blood overall and had good improvement in her hemoglobin per labs. Patient continues to deny any chest pain, shortness of breath, weakness. Patient reports she did not have any symptoms at the time of receiving results of her low hemoglobin. Patient denying any coughing up of blood or coffee-ground stools. Patient does report a long history of bright red blood when wiping and pain with defecation. Patient also had pain yesterday during rectal exam that was very significant. Patient did receive a suppository yesterday that did seem to improve her pain. Only new complaint patient is stating is that she has lower back pain that she feels is from the bed she is in currently. Otherwise no new complaints at this time. Reports that her last alcoholic drink was yesterday and has a frequent alcohol consumption history. States that a pack of seltzers lasts her 2 to 3 days. Review of Systems Review of Systems: All systems reviewed & are unremarkable except as noted in HPI & below Physical Exam Constitutional: WD/WN, vitals as above Eyes: PERRL, conjunctivae normal, anicteric sclerae ENMT: external ear and nose normal, oropharynx normal Neck: normal visual inspection Respiratory: normal respiratory effort, lungs clear to auscultation Cardiovascular: RRR, no murmur, no edema Rate/Rhythm: regular rate and regular rhythm Gastrointestinal (Abdomen): normal bowel sounds, soft, nontender, no hepatosplenomegaly Musculoskeletal: no cyanosis or clubbing, extremities motor strength 5/5 Skin: no rashes, warm and dry Psychiatric: A+Ox3, euthymic affect Results & Data Results & Data ([facility]) Vital Signs (Past 12 Hours) Vital Signs Temp Pulse Pulse Resp BP BP Pulse Ox 11/28/21 06:44 36.9 C 60 16 145/79 H 96 11/28/21 02:24 36.7 C 80 18 135/84 96 11/28/21 01:25 36.7 C 76 18 121/73 96 11/28/21 00:55 36.7 C 77 18 125/75 98 11/28/21 00:40 36.7 C 78 18 127/78 97 11/28/21 00:22 36.7 C 73 18 121/72 98 11/28/21 00:00 36.7 C 74 18 121/72 96 11/27/21 23:02 37.1 C 79 18 114/62 97 11/27/21 22:33 37.1 C 79 18 114/62 97 11/27/21 22:30 88 11/27/21 21:40 82 15 97 11/27/21 21:30 36.6 C 86 16 106/68 95 11/27/21 21:20 80 16 97 (1) GI bleed GI bleed type/associated pathology: anorectal hemorrhage Qualified Code(s): K62.5 - Hemorrhage of anus and rectum
[2021-11-28] MEDS: LIDOCAINE 5% 1 PATCH TD SCH (11:23)
[2021-11-28] MEDS ORDERED: LORazepam 1 MG TAB PO PRN (12:59)
--- NOTE | 2021-11-28 14:53 | Electrocardiogram Report ---
Test Reason : Blood Pressure : / mmHG Vent. Rate : 073 BPM Atrial Rate : 073 BPM P-R Int : 138 ms QRS Dur : 082 ms QT Int : 428 ms P-R-T Axes : 009 037 035 degrees QTc Int : 471 ms Normal sinus rhythm Low voltage QRS Borderline ECG When compared with ECG of 09-JUL-2019 19:46, QT has shortened Confirmed by Scott Fiore ([id number]) on 11/28/2021 2:53:15 PM Referred By: REFERRED SELF Confirmed By:Jason Fiore
[2021-11-28] MEDS ORDERED: LAVAGE SOLUTION 4000ML PO SCH (16:30)
[2021-11-29 07:13] LABS: Hematocrit (blood only) 31.2 % (37-47); Hemoglobin 10.1 g/dL (12.0-16.0); Mean Corpuscular Hemoglobin 29.3 pg (25-34); Mean Corpuscular Hgb Conc 32.4 g/dL (32-36); Mean Corpuscular Volume 90.4 fL (80-100); RDW Coefficient of Variation 17.4 % (11.5-14.5); Red Blood Count 3.45 M/uL (4.2-5.4); White Blood Count 3.32 K/uL (4.8-10.8)
[2021-11-29 07:30] LABS: Basophils # (auto) 0.02 K/uL (0-0.2); Basophils % (auto) 0.6 %; Eosinophils # (auto) 0.09 K/uL (0-0.5); Eosinophils % (auto) 2.7 %; Immature Granulocytes # (auto) 0.01 K/uL (0.00-0.02); Immature Granulocytes % (auto) 0.3 %; Lymphocytes % (auto) 33.1 %; Mean Platelet Volume 10.7 fL (7.4-10.4); Monocytes # (auto) 0.32 K/uL (0.11-0.59); Monocytes % (auto) 9.6 %; Neutrophils # (auto) 1.78 K/uL (1.4-6.5); Neutrophils % (auto) 53.7 %; Platelet Count 67 K/uL (130-400)
[2021-11-29 07:33] LABS: INR 1.7 (0.9-1.1)
[2021-11-29 07:59] LABS: Anisocytosis Present; Schistocytes Occasional; Spherocytes Occasional
[2021-11-29] MEDS ORDERED: PHYTONADIONE 10 MG in DEXTROSE 5% 50 ML IV ONE (08:15)
[2021-11-29] MEDS: FOLIC ACID 400 MCG TAB PO SCH (08:47)
[2021-11-29] MEDS: CITALOPRAM 20 MG TAB PO SCH (08:47)
[2021-11-29] MEDS: MULTIVITAMIN TAB PO SCH (08:47)
[2021-11-29] MEDS: PROPRANOLOL HCL 10 MG TAB PO SCH (08:47)
[2021-11-29] MEDS: LIDOCAINE 5% 1 PATCH TD SCH (08:48)
--- NOTE | 2021-11-29 08:57 | Gastroenterology Progress Note ---
Date of Service November 29, 2021 Assessment & Plan (1) GI bleed: Plan: 61 year old female admitted with anemia, hgb 6 s/p 2 unites rbc with hgb 10 this AM, normal BUN. She has history of ETHO cirrhosis, denies ETOH to me, last EGD in 07/2021 w/o evidence of varices. Suspect LGIB bleed, hemorrhoidal vs AVM vs other NPO for EGD/Colonoscopy today Pending results, consider discharge today Thank you for allowing us to participate in the care of this patient. Please call with any acute changes, questions or concerns. Please see addendum below with additional recommendation from my supervising physician. Admission and Anticipated Discharge Date Admission Date: November 27, 2021 Supervising Physician Co-Signing Physician Notes I saw and evaluated the patient. We are planning to do an upper endoscopy and colonoscopy today due to a history of hematochezia and anemia. We have discussed the risks and benefits to include bleeding infection perforation pain and need for follow-up studies. Subjective Pt was seen and evaluated, chart reviewed Notes she finished 3/4 of prep She has some abd discomfort this AM No nausea, vomiting Stools are liquid, clear She did not see black or bloody stools. Review of Systems Review of Systems: All systems reviewed & are unremarkable except as noted in HPI & below Physical Exam Constitutional: WD/WN, vitals as above Neck: trachea midline, no thyromegaly Respiratory: normal respiratory effort, lungs clear to auscultation Gastrointestinal (Abdomen): normal bowel sounds, soft, nontender, no hepatosplenomegaly Skin: no rashes, warm and dry Results & Data ([facility]) Vital Signs (Past 12 Hours) Vital Signs Temp Pulse Pulse Pulse Resp BP Pulse Ox 11/29/21 08:44 36.7 C 68 16 133/87 98 11/29/21 08:26 36.9 C 70 16 144/84 H 97 11/29/21 07:28 72 11/29/21 05:05 36.7 C 96 H 18 149/84 H 96 11/28/21 23:13 37.1 C 73 18 128/76 96 11/28/21 22:17 75 (1) GI bleed GI bleed type/associated pathology: anorectal hemorrhage Qualified Code(s): K62.5 - Hemorrhage of anus and rectum
--- NOTE | 2021-11-29 09:58 | Anesthesiology Consultation ---
Date of Service November 29, 2021 Assessment & Plan Chart Review Chart Review: Acceptable Risk for Surgery, Patient NOT seen in Pre Admission Testing and education program manager initiated Consults Requested none ASA ASA3 Proposed Anesthesia Anesthesia Type: MAC Risk / Benefits Reviewed With: PT / POA / Parent / Guardian, Accepts Plan and Informed Consent Obtained History Surgery Operation Date: 11/29/21 16:00 Proposed Procedures p Colonoscopy EGD Dr Yonny Blancas, DO Height/Weight Height: 5 ft 3 in Weight: 58.7 kg Allergies Allergy/AdvReac Type Severity Reaction Status Date / Time No Known Allergies Allergy Verified 11/29/21 09:56 Medications Home Medications Medication Instructions Recorded Confirmed Last Taken citalopram 20 mg tablet (Celexa) 20 mg PO QAM #30 tab 10/02/20 11/27/21 11/27/21 furosemide 40 mg tablet 40 mg PO QAM PRN #30 tab 07/16/21 11/27/21 Unknown multivitamin 1 tab PO QAM 07/20/21 11/27/21 11/27/21 folic acid 800 mcg tablet 0.8 mg PO DAILY 11/27/21 11/27/21 11/27/21 pantoprazole 40 mg tablet,delayed 40 mg PO DAILY 11/27/21 11/27/21 11/27/21 release propranolol 20 mg tablet 10 mg PO BID 11/27/21 11/27/21 11/27/21 08:00 Active Medications Generic Name Dose Route Start Last Admin Trade Name Freq PRN Reason Stop Dose Admin Citalopram Hydrobromide 20 mg 11/28/21 09:00 11/29/21 08:47 Citalopram 20 Mg Tab PO 12/28/21 08:59 20 mg QAM FELISHA Administration Folic Acid 800 mcg 11/28/21 09:00 11/29/21 08:47 Folic Acid 400 Mcg Tab PO 12/28/21 08:59 800 mcg DAILY FELISHA Administration Pantoprazole Sodium 40 mg/ 10 mls @ 5 mls/min 11/27/21 21:00 11/28/21 19:40 Syringe IV 12/27/21 20:59 5 mls/min BID FELISHA Administration Lidocaine 1 patch 11/28/21 09:30 11/29/21 08:48 Lidocaine 5% 1 Patch TD 12/28/21 09:29 Not Given QAM FELISHA Miscellaneous 1 ea 11/28/21 21:00 11/28/21 19:40 Remove Lidoderm Patch N/A 12/28/21 20:59 1 ea DAILY@2100 FELISHA Administration Multivitamins 1 tab 11/28/21 09:00 11/29/21 08:47 Multivitamin Tab PO 12/28/21 08:59 1 tab QAM FELISHA Administration Propranolol HCl 10 mg 11/27/21 22:43 11/29/21 08:47 Propranolol Hcl 10 Mg Tab PO 12/27/21 22:42 10 mg BID FELISHA Administration NPO Date Last Intake of Fluids: 11/29/21 Time Last Intake of Fluids: 09:00 Date Last Intake of Solids: 11/27/21 Time Last Intake of Solids: 12:00 Past Medical History Medical History Alcoholic cirrhosis of liver Anemia Ascites Adames's esophagus Cholelithiasis Common bile duct dilatation Depression Esophageal varices GERD (gastroesophageal reflux disease) History of recent blood transfusion 05/26/21 @ [facility] Macular degeneration of both eyes Pancytopenia Scoliosis Exercise / Class Metabolic Activity 1 > 8 Run/Swim/Ski/Tennis Past Family History Family History Mother Hx of cholecystectomy Hypertension Other Cancer Gallbladder disease Lung cancer No family history of adverse response to anesthesia Past Surgical History Surgical History H/O shoulder surgery right H/O wrist surgery left History of arthroscopy of right knee History of colonoscopy History of dilatation and curettage History of esophagogastroduodenoscopy (EGD) History of hand surgery tendon surgery on pinky finger on right hand History of placement of ear tubes History of tonsillectomy and adenoidectomy History of tooth extraction all teeth removed Hx of lumpectomy benign off breast Past Anesthesia History No Hx of Anesthesia Complications and No Family Hx of Anesthesia Complications History of PONV No Hx of PONV and No Hx of Motion Sickness Social History Smoking Status: Former smoker tobacco type: cigarettes Do You Dip or Chew Tobacco: No Smoking End Date: 20 years ago Hx Alcohol Use: Yes (rehab 1999) Alcohol type: wine alcohol intake frequency: a few times a week Alcohol Intake Frequency Comment: 3-4 drinks, 3-4 times a week Hx Substance Use: No substance use type: does not use Physical Exam Vital Signs Last Vital Signs Temp 36.8 C 11/29/21 09:50 Pulse 73 11/29/21 09:50 Resp 18 11/29/21 09:50 BP 138/86 11/29/21 09:50 Pulse Ox 98 11/29/21 09:50 ENMT Mouth: + dentures and + edentulous Thyromental Distance: > or= 3.5 Finger Breadths Mallampati Class: II Neck normal visual inspection, trachea midline and + limited neck extension Respiratory normal respiratory effort; no respiratory distress Auscultation: lungs clear to auscultation bilaterally; no crackles, no rhonchi and no wheezes Cardiovascular Rate/Rhythm: regular rate and regular rhythm Heart Sounds: no gallop, no murmur and no cardiac rub Neurologic moves all extremities and awake Psychiatric Orientation: alert Testing Laboratory Results 11/29/21 06:53 PT 18.0 Seconds (9.0-12.0) H 11/29/21 06:53 INR 1.7 (0.9-1.1) H 11/29/21 06:53 Urine Color Dark Yellow 11/28/21 00:00 Urine Appearance Clear (Clear) 11/28/21 00:00 Urine pH 6.0 (4.5-7.5) 11/28/21 00:00 Ur Specific [place] 1.024 (1.000-1.030) 11/28/21 00:00 Urine Protein Negative (Negative) 11/28/21 00:00 Urine Glucose (UA) Negative (Negative) 11/28/21 00:00 Urine Ketones Trace (Negative) H 11/28/21 00:00 Urine Nitrite Negative (Negative) 11/28/21 00:00 Ur Leukocyte Esterase 1+ (Negative) H 11/28/21 00:00 Urine WBC (Auto) 10-30 /hpf (0-5) H 11/28/21 00:00 Urine RBC (Auto) 5-10 /hpf (0-4) H 11/28/21 00:00 U Hyaline Cast (Auto) 1-5 /lpf (0-5) 11/28/21 00:00 U Epithel Cells (Auto) >30 /lpf (0-5) H 11/28/21 00:00 Urine Bacteria (Auto) Negative (Negative) 11/28/21 00:00 Blood Type O Positive 11/27/21 17:42 Antibody Screen NEGATIVE 11/27/21 17:42 Electrocardiogram Date: 11/28/21 Findings: + NSR @ (73) Low voltage
--- NOTE | 2021-11-29 10:43 | Communication Note ---
Date of Service: November 29, 2021 The patient underwent upper endoscopy and colonoscopy today. There was no evidence of active or recent bleeding from the gastrointestinal tract. Findings Grade 1-2 esophageal varices with no stigmata of recent bleeding Gastropathy Internal and external hemorrhoids Impression: She is hematochezia is likely related to her internal and external hemorrhoids. Perhaps she could be on a stool softener such as MiraLAX 17 g 1 time daily. Should persistent or concerning symptoms persist she may seek most benefit from a colorectal surgery referral or general surgery referral. Please call with any questions or concerns GI to sign off
--- NOTE | 2021-11-29 10:47 | GI REPORT ---
Patient Name: Caitlin Walsh Procedure Date: 11/29/2021 10:13 AM Date of : 1960 Admit Type: Inpatient Age: 61 Gender: Female Attending MD: Bora Blancas DO Procedure: Colonoscopy Providers: Bora Blancas DO Referring MD: Katy Penny Indications: Hematochezia Medicines: Monitored Anesthesia Care Complications: No immediate complications. Estimated blood loss: Minimal. Estimated Blood Loss: Estimated blood loss was minimal. Procedure: Pre-Anesthesia Assessment: - Prior to the procedure, a History and Physical was performed, and patient medications, allergies and sensitivities were reviewed. The patient's tolerance of previous anesthesia was reviewed. - The risks and benefits of the procedure and the sedation options and risks were discussed with the patient. All questions were answered and informed consent was obtained. - Patient identification and proposed procedure were verified prior to the procedure by the physician, the nurse and the mantel craftsman. The procedure was verified in the procedure room. - Pre-procedure physical examination revealed no contraindications to sedation. - ASA Grade Assessment: III - A patient with severe systemic disease. - After reviewing the risks and benefits, the patient was deemed in satisfactory condition to undergo the procedure. - The anesthesia plan was to use monitored anesthesia care (MAC). - Immediately prior to administration of medications, the patient was re-assessed for adequacy to receive sedatives. - The heart rate, respiratory rate, oxygen saturations, blood pressure, adequacy of pulmonary ventilation, and response to care were monitored throughout the procedure. - The physical status of the patient was re-assessed after the procedure. After I obtained informed consent, the scope was passed under direct vision. Throughout the procedure, the patient's blood pressure, pulse, and oxygen saturations were monitored continuously. The Colonoscope was introduced through the anus and advanced to the terminal ileum. The colonoscopy was performed without difficulty. The patient tolerated the procedure well. The quality of the bowel preparation was good. Findings: Hemorrhoids were found on perianal exam. The terminal ileum appeared normal. Internal hemorrhoids were found during retroflexion. The hemorrhoids were mild. The exam was otherwise without abnormality. Impression: - Hemorrhoids found on perianal exam. - The examined portion of the ileum was normal. - Internal hemorrhoids. - The examination was otherwise normal. - No specimens collected. Recommendation: - [facility]. - Advance diet as tolerated today. - Repeat colonoscopy in 5 years for screening purposes. -If troublesome hematochezia recurs would recommend a general surgery or colorectal surgery referral Bora Blancas D.O. Bora Blancas, 11/29/2021 10:47:11 AM This report has been signed electronically. Note Initiated On: 11/29/2021 10:13 AM Number of Addenda: 0 I attest to the content of the Intraoperative Record and orders documented therein, exceptions below {[id number]}
--- NOTE | 2021-11-29 10:51 | GI REPORT ---
Patient Name: Caitlin Walsh Procedure Date: 11/29/2021 10:14 AM Date of : 1960 Admit Type: Inpatient Age: 61 Gender: Female Attending MD: Bora Blancas DO Procedure: Upper GI endoscopy Providers: Bora Blancas DO Referring MD: Katy Penny Indications: Hematochezia Medicines: Monitored Anesthesia Care Complications: No immediate complications. Estimated blood loss: Minimal. Estimated Blood Loss: Estimated blood loss was minimal. Procedure: Pre-Anesthesia Assessment: - Prior to the procedure, a History and Physical was performed, and patient medications, allergies and sensitivities were reviewed. The patient's tolerance of previous anesthesia was reviewed. - The risks and benefits of the procedure and the sedation options and risks were discussed with the patient. All questions were answered and informed consent was obtained. - Patient identification and proposed procedure were verified prior to the procedure by the physician, the nurse and the lieutenant general. The procedure was verified in the procedure room. - Pre-procedure physical examination revealed no contraindications to sedation. - ASA Grade Assessment: III - A patient with severe systemic disease. - After reviewing the risks and benefits, the patient was deemed in satisfactory condition to undergo the procedure. - The anesthesia plan was to use monitored anesthesia care (MAC). - Immediately prior to administration of medications, the patient was re-assessed for adequacy to receive sedatives. - The heart rate, respiratory rate, oxygen saturations, blood pressure, adequacy of pulmonary ventilation, and response to care were monitored throughout the procedure. - The physical status of the patient was re-assessed after the procedure. After obtaining informed consent, the endoscope was passed under direct vision. Throughout the procedure, the patient's blood pressure, pulse, and oxygen saturations were monitored continuously. The Colonoscope was introduced through the mouth, and advanced to the third part of duodenum. The upper GI endoscopy was accomplished without difficulty. The patient tolerated the procedure well. Findings: One benign-appearing, intrinsic mild stenosis was found in the upper third of the esophagus. This stenosis measured 2 cm (in length). The stenosis was traversed and dilated with the endoscope (a superficial rent was noted). Three columns of grade I varices with no bleeding and no stigmata of recent bleeding were found in the middle third of the esophagus and in the lower third of the esophagus, 32 to 38 cm from the incisors. They were 4 mm in largest diameter. No red zaida signs were present. Scarring from prior treatment was visible. A small hiatal hernia was found. The proximal extent of the gastric folds (end of tubular esophagus) was 38 cm from the incisors. The hiatal narrowing was 40 cm from the incisors. The Z-line was 38 cm from the incisors. Mild portal hypertensive gastropathy was found in the entire examined stomach. The examined duodenum was normal. Impression: - Benign-appearing esophageal stenosis. - Grade I esophageal varices with no bleeding and no stigmata of recent bleeding. - Small hiatal hernia. - Portal hypertensive gastropathy. - Normal examined duodenum. - No specimens collected. Recommendation: - [facility]. - Observe patient's clinical course. - Repeat upper endoscopy in 1 year for surveillance. Bora Blancas D.O. Bora Blancas DO 11/29/2021 10:51:17 AM This report has been signed electronically. Note Initiated On: 11/29/2021 10:14 AM Number of Addenda: 0 I attest to the content of the Intraoperative Record and orders documented therein, exceptions below {[id number]}
[2021-11-29 11:33] LABS: Albumin Globulin Ratio 0.7 (0.9-2); Albumin Level 2.6 gm/dl (3.4-5.0); BUN Creatinine Ratio 12.8 (10-20); Bilirubin,Total 1.8 mg/dl (0.2-1.0); Calcium 6.8 mg/dl (8.5-10.1); Creatinine Clr Calc Pharmacy 51.3 ml/min; Est GFR (African American) 75.4 ml/min; Globulin 3.6 gm/dl (2.5-4.0); Potassium 3.6 mmol/L (3.5-5.1); Total Protein 6.2 gm/dl (6.0-8.3)
--- NOTE | 2021-11-29 12:12 | Anesthesiology Progress Note ---
Date of Service November 29, 2021 Anesthesia Post Procedure Vital Signs Vital Signs: Temp Pulse Pulse Pulse Resp BP Pulse Ox 11/29/21 11:55 36.6 C 64 16 122/75 97 11/29/21 11:07 68 18 119/74 100 11/29/21 10:54 67 18 107/63 100 11/29/21 10:41 78 18 129/60 99 11/29/21 09:50 36.8 C 73 18 138/86 98 11/29/21 09:20 36.9 C 69 16 138/84 95 11/29/21 09:05 37.0 C 68 16 126/79 96 11/29/21 08:44 36.7 C 68 16 133/87 98 11/29/21 08:26 36.9 C 70 16 144/84 H 97 11/29/21 07:28 72 11/29/21 05:05 36.7 C 96 H 18 149/84 H 96 11/28/21 23:13 37.1 C 73 18 128/76 96 11/28/21 22:17 75 11/28/21 19:36 37 C 75 18 145/87 H 97 11/28/21 16:10 74 11/28/21 15:18 36.9 C 74 18 129/84 95 Pain Intensity Medial Back: Pain Intensity: 4 Transfer of Care Handoff Completed per policy Notes Mental Status: alert / awake / arousable and participated in evaluation Patient Amnestic to Procedure: Yes Nausea / Vomiting: adequately controlled Pain: adequately controlled Airway Patency, RR, SpO2: stable & adequate BP & HR: stable & adequate Hydration State: stable & adequate Anesthetic Complications: no major complications apparent and Pt Satisfied with anesthetic care
[2021-11-29] MEDS: PANTOprazole 40 MG in SYRINGE 0 ML IV SCH (12:20)
--- NOTE | 2021-11-29 15:32 | Discharge Summary ---
Date of Service November 29, 2021 Admission HPI Per Admitting Provider 61-year-old female past medical history significant for liver cirrhosis with associated ascites, esophageal varices, and pancytopenia, history of alcohol use disorder, depression, GERD presented to the ER at request of outside provider due to outside lab work revealing hemoglobin of 6.9. Patient herself denies chest pain, shortness of breath, abdominal pain, diarrhea, nausea, vomiting, hematemesis. She endorses some bright red blood in her stool and on wiping for the last 2 weeks. She has history of anal fissures and hemorrhoids in the past. She has follow-up with GI in the office this upcoming Friday, and has her routine EGD scheduled for April. In the ER patient was also noted to have AST 74, ALT 22, alk phos 116, potassium 3.1. Patient was ordered 1u PRBCs and hospitalist service was consulted for admission. Principal Diagnosis Anemia secondary to GI bleed Discharge Exam Constitutional WD/WN, vitals as above Eyes PERRL, conjunctivae normal, anicteric sclerae ENMT external ear and nose normal, oropharynx normal Neck normal visual inspection Respiratory normal respiratory effort, lungs clear to auscultation Cardiovascular RRR, no murmur, no edema Rate/Rhythm: regular rate and regular rhythm Gastrointestinal (Abdomen) normal bowel sounds, soft, nontender, no hepatosplenomegaly Musculoskeletal no cyanosis or clubbing, extremities motor strength 5/5 Skin no rashes, warm and dry Psychiatric A+Ox3, euthymic affect Discharge Data Allergies Allergy/AdvReac Type Severity Reaction Status Date / Time No Known Allergies Allergy Verified 11/29/21 09:56 Consultations 11/27/21 19:17 ED Decision to Admit Stat 11/27/21 22:43 Consult Gastroenterology Routine Procedures Performed Operation Date: 11/29/21 16:00 Actual Procedures p Esophagogastroduodenoscopy - Bora Blancas DO s Colonoscopy - Bora Blancas DO Hospital Course (1) Anemia: (2) Hypokalemia: (3) GI bleed: (4) Pancytopenia: (5) Depression: (6) GERD (gastroesophageal reflux disease): 61-year-old female past medical history significant for liver cirrhosis with associated ascites, esophageal varices, and pancytopenia, history of alcohol use disorder, depression, GERD admitted for acute blood loss anemia. Acute blood loss anemia: Presents with hemoglobin of 6.9 with mild hypotension, hemoglobin 10.0 this morning, 10.1 on the day of discharge Blood consent performed; patient received a total of 2 units since admission and responded as above Bleeding is more likely secondary to lower GI source however patient does have a known history of varices and we will put patient on Protonix for now and continue home propranolol. Gastroenterology consulted and appreciate recommendations: -Patient was prepped for endoscopy and colonoscopy performed on 11/29. -Colonoscopy did not reveal any polyps but did find hemorrhoids that did not have any active bleeding -Endoscopy showed grade 1 varices without any active bleeding and a stenosis at the proximal third of the esophagus that was dilated INR currently 1.6. Recheck CBC, reticulocyte count, CMP in 3 days. Follow-up with primary care provider within 1 week. Liver cirrhosis, esophageal varices, pancytopenia: All are sequelae of history of alcohol use. Chronic elevated INR. Patient's cell lines are all decreased but this is stable and chronic save for her anemia. Known history of liver cirrhosis with frequent follow up with Dr. Bora Blancas, including later this week. Patient not showing any alcohol withdrawal symptoms; AWSS protocol was initiated but patient did not require any Ativan Daily CBC while admitted. Hypokalemia: K 3.1 on admission. KCl 40meq PO elixir ordered and given on 11/27 Repeat BMP, showed improvement to 3.9 Continue to monitor Depression: Continue citalopram. Code Status: FULL CODE Dispo: Home with self-care Total Time Total Time Spent Total Time Spent (In Minutes): 30 Discharge Plan Discharge Items Patient Disposition: Home - Self-Care Reason For Visit: ACUTE BLOOD LOSS ANEMIA Discharge Diagnosis: Acute blood loss anemia Activity: Per Instructions section Non-emergency contact: Primary Care Provider and Machine Coremaker Call non-emergency contact if: you have any medication questions and your sympt oms worsen Follow-up/Referrals: Katy Nath CRNP [Primary Care Provider] - Diet: Regular Ambulatory Orders: Complete Blood Count with Diff (Routine) Timeframe: 3 Days Location: Determined by Patient Ordered By: Baljeet Higginbotham Comprehensive Metabolic Panel (Routine) Timeframe: 3 Days Location: Determined by Patient Ordered By: Baljeet Higginbotham Reticulocyte Count (Routine) Timeframe: 3 Days Location: Determined by Patient Ordered By: Baljeet Grimes Attending Provider Instructions: You are seen in the hospital as you were referred by your primary care provider for the concern for anemia. It was found that your anemia was likely due to a GI bleed due to your chronic history of esophageal varices and liver cirrhosis. You are here you received 2 units of blood and responded appropriately bring her hemoglobin up to 10.0. You thenwere hospitalized to be evaluated by the rehabilitation services director. The rehabilitation services director performed an endoscopy and colonoscopy to evaluate for the cause of your bleed and there is no active bleeding found, but he was able to dilate your esophagus to allow for easier swallowing. On repeat blood levels this morning, it does seem that your hemogl obin has stabilized and any GI bleed that you may have had has likely ceased. At this time we feel it is safe for you to be discharged home. We would like you to get some blood levels rechecked in 4 days and for you to follow-up with your primary care provider within 7 days. We do continue to advocate for you and wish for you to discontinue your heavy use of alcohol, please discuss with your primary care provider about cessation methods. Is been a pleasure to be a part of your care and we wish you the best in both your health and recovery. Pending Studies at Discharge: No Stand-Alone Forms: [facility], Smoking Cessation Medications and DC Order Prescriptions: New sulfamethoxazole-trimethoprim [Bactrim DS] 800-160 mg tablet 1 tab PO BID 3 Days Qty: 6 RF: 0 Continued citalopram [Celexa] 20 mg tablet 20 mg PO QAM Qty: 30 RF: 11 furosemide 40 mg tablet 40 mg PO QAM PRN (Reason: edema) Qty: 30 RF: 3 Hold Instructions: Home Medication placed on hold at Doctor's office multivitamin Tablet 1 tab PO QAM RF: 0 propranolol 20 mg tablet 10 mg PO BID RF: 0 pantoprazole 40 mg tablet,delayed release (DR/EC) 40 mg PO DAILY RF: 0 folic acid 800 mcg Tablet 0.8 mg PO DAILY RF: 0 Discharge Orders: Discharge Order (Routine); Ordered 11/29/21 Ordered By: Baljeet Kent/Other Patient Handouts: Social Drinking vs Problem Drinking Admission Data Admit Date/Time: 11/27/21 19:20 Attending Provider: Sandro Herbert Admit Provider: Elizabeth Dsouza Primary Care Provider: Katy Nath Other Providers: Shaggy Man ; Bora Blancas Other Interventions: Discharge Summary Assessment (RN) Last Done: 11/29/21 15:23 Supervising Physician Co-Signing Physician Notes I also saw the patient with the resident physician and confirmed dominguez portions of the history and physical examination. I agree with the impression and plan as noted in the resident documentation. Exam 122/78, 72, 16, 36.8, 97% on room air She is seated in bed eating her lunch. Heart regular rate and rhythm Lungs clear with nonlabored respirations Abdomen soft and nontender. No distention is appreciated. Data Hemoglobin 10.1, this is stable Count 67, down slightly from 71 BUN 12, creatinine 0.94 INR 1.7 GI bleed Acute blood loss anemia Hypoproliferative thrombocytopenia Panendoscopy is unremarkable Hemoglobin is remained stable Patient safe for discharge with close outpatient follow-up and repeat CBC In review of her platelet count, she has ranged from the 70s to as high as 194 back to 2018 Additional as noted above.
== END 2021-11-29 16:41 | disposition home or self-care (01) | DRG 394 ==
LOC: ED 17:15 → 2S 19:20 → INTOOBSV 19:20 → SUATTDRO 19:20 → 2S 21:54

== ENCOUNTER 2022-07-03 18:30 | Inpatient (IN) ==
--- NOTE | 2022-07-03 20:17 | XRay Report ---
XR chest 1V portable CLINICAL HISTORY: weakness TECHNIQUE: Single frontal radiograph of the chest was obtained. Comparison: None available at the time of this dictation. FINDINGS: No lines and tubes are seen. The cardiomediastinal silhouette is normal. The lungs are clear. No evid ence of pleural effusion or pneumothorax. IMPRESSION: No acute chest disease. ACT 112: Negative or not required by law. Electronically signed by: Pollo Vidales M.D. 07/03/2022 8:16 PM
[2022-07-03 20:24] LABS: Prothrombin Time 20.1 Seconds (9.0-12.0)
[2022-07-03 20:31] LABS: Anisocytosis Present; Basophils # (auto) 0.05 K/uL (0-0.2); Basophils % (auto) 0.9 %; Eosinophils # (auto) 0.13 K/uL (0-0.50); Eosinophils % (auto) 2.5 %; Immature Granulocytes # (auto) 0.04 K/uL (0.00-0.02); Immature Granulocytes % (auto) 0.8 %; Lymphocytes # (auto) 1.77 K/uL (1.2-3.4); Lymphocytes % (auto) 33.4 %; Mean Corpuscular Hemoglobin 32.2 pg (25.0-34.0); Mean Corpuscular Hgb Conc 32.7 g/dL (32.0-36.0); Mean Corpuscular Volume 98.6 fL (80.0-100.0); Mean Platelet Volume 12.5 fL (9.4-12.3); Monocytes # (auto) 0.76 K/uL (0.24-0.82); Monocytes % (auto) 14.3 %; Neutrophils # (auto) 2.55 K/uL (1.4-6.5); Neutrophils % (auto) 48.1 %; Ovalocytes 1+; Platelet Count 88 K/uL (130-400); Platelet Estimate Decreased (Normal); RDW Standard Deviation 72.2 fL (36.4-46.3); Red Blood Count 2.08 M/uL (3.93-5.22); Tear Drop Cells 1+
[2022-07-03 20:32] LABS: Hematocrit (blood only) 20.5 % (34.1-44.9); Hemoglobin 6.7 g/dl (12.0-16.0)
[2022-07-03 20:37] LABS: Troponin I High Sensitivity 6.5 pg/ml (0-14)
[2022-07-03 20:49] LABS: Albumin Globulin Ratio 0.6 (0.9-2); Albumin Level 2.4 gm/dl (3.4-5.0); BUN Creatinine Ratio 8.3 (10-20); Bilirubin,Total 1.3 mg/dl (0.2-1.0); Calcium 7.1 mg/dl (8.5-10.1); Creatinine Clr Calc Pharmacy 12.4 ml/min; Est GFR (African American) 13.6 ml/min; Est GFR (Non-African American) 11.8 ml/min; Globulin 4.1 gm/dl (2.5-4.0); Magnesium 1.1 mg/dl (1.7-2.4); Total Protein 6.5 gm/dl (6.0-8.3)
[2022-07-03] MEDS ORDERED: SODIUM CHLORIDE 0.9% 1000ML 250 ML IV ONE (21:23)
--- NOTE | 2022-07-03 21:30 | History & Physical Report ---
Date of Service July 03, 2022 Assessment & Plan (1) Anemia: Plan: 61-year-old female past medical history significant for liver cirrhosis with associated ascites, esophageal varices, and pancytopenia, history of alcohol use disorder, depression, GERD admitted for acute blood loss anemia. Anemia: Presents with hemoglobin of 6.7 with mild hypotension Patient does have chronic anemia, he usually in the 9s to 10s Unclear why current decrease patient has no obvious signs of active bleed, with negative Hemoccult and asymptomatic Blood consent performed; patient will receive 2 unit PRBCs with repeat H/H q6h following CT A/P without contrast ordered to evaluate for retroperitoneal bleed LATASHA: Creatinine of 3.89 on admission Patient usually had normal creatinine levels Suspect this problem is multifactorial Likely some prerenal aspect will continue IV hydration with NSS at 125 cc/h Potentially a hepatorenal aspect to it as well UA pending Hold home furosemide as needed and propranolol twice daily Alcoholic liver cirrhosis, esophageal varices: As sequelae of history of alcohol use INR elevated to 2.0 at this time Will administer vitamin K 10 mg IV at this time to attempt to reverse INR Meld NA score of 29 points 27-32% 90-day mortality Daily CBC while admitted Electrolyte abnormalities: K 2.5 on admission. 2 Kcl riders in ED Give 2 additional riders on admission Limiting KCl to 40 mEq at this time due to compromised kidney function Magnesium 1.5 on admission given neck sulfate 2 g in the ED Repeat labs in AM. Alcohol use disorder: Last drink reportedly yesterday Patient reports she has been drinking significantly less Nonetheless, will order at risk AWSS protocol with as needed Ativan Daily thiamine and folate GERD: Continue home pantoprazole 40 mg p.o. daily Depression: Continue citalopram. Code Status: FULL CODE FEN: NSS at 125 cc/h, heart healthy/low-sodium diet DVT ppx: SCDs, chemoprophylaxis contraindicated with elevated INR Dispo: Telemetry (2) Hypomagnesemia: (3) Elevated INR: (4) Depression: (5) GERD (gastroesophageal reflux disease): (6) Alcoholic cirrhosis of liver: (7) Hypokalemia: History of Present Illness Primary Care Provider: BARRIE England 61-year-old female past medical history significant for liver cirrhosis with associated ascites, esophageal varices, and pancytopenia, history of alcohol use disorder, depression, GERD presented to the ER at request of outside provider due to outside lab work revealing hemoglobin of 6.7. Patient herself denies chest pain, shortness of breath, abdominal pain, diarrhea, nausea, vomiting, hematemesis. She states she was scheduled to see her PCP due to hemorrhoids that have been bothering her as of late. However, denying bloody or dark BMs. She follows with [facility]. Patient states her last drink was yesterday and that she has been drinking significantly less as of late. Patient's lab work also significant for INR of 2.0, potassium 2.5, creatinine 3.84, calcium 7.1, magnesium 1.1, T bili 1.3, AST 61, ALT 24, alk phos 95. Troponin 6.5, albumin 2.4, TSH 4.099. Ethyl alcohol level of 119.8. She was ordered 2 units PRBCs. Also given magnesium sulfate 1 g x 2, 2 KCl riders. Allergies Allergy/AdvReac Type Severity Reaction Status Date / Time No Known Allergies Allergy Verified 07/03/22 20:56 Home Medications Medication Instructions Recorded Confirmed Type multivitamin 1 tab PO QAM 07/20/21 07/03/22 History folic acid 800 mcg tablet 0.8 mg PO DAILY 11/27/21 07/03/22 History pantoprazole 40 mg tablet,delayed 40 mg PO QAM 11/27/21 07/03/22 History release propranolol 20 mg tablet 10 mg PO BID 11/27/21 07/03/22 History citalopram 20 mg tablet (Celexa) 20 mg PO QAM #30 tabs 01/04/22 07/03/22 Rx furosemide 40 mg tablet 40 mg PO QAM PRN Edema 07/03/22 07/03/22 History hydrocortisone 2.5 % topical cream 1 applic NE UD 07/03/22 07/03/22 History with perineal applicator Past Med/Surg History Medical History (Updated 07/03/22 @ 23:08 by Clement Vega MD) Alcoholic cirrhosis of liver Anemia Ascites Adames's esophagus Cholelithiasis Common bile duct dilatation Depression Esophageal varices GERD (gastroesophageal reflux disease) GI bleed History of recent blood transfusion 05/26/21 @ [facility] Hypokalemia Macular degeneration of both eyes Pancytopenia Scoliosis Surgical History H/O shoulder surgery right H/O wrist surgery left History of arthroscopy of right knee History of colonoscopy History of dilatation and curettage History of esophagogastroduodenoscopy (EGD) History of hand surgery tendon surgery on pinky finger on right hand History of placement of ear tubes History of tonsillectomy and adenoidectomy History of tooth extraction all teeth removed Hx of lumpectomy benign off breast Family History Mother Hx of cholecystectomy Hypertension Other Cancer Gallbladder disease Lung cancer No family history of adverse response to anesthesia Social History Smoking Status: Former smoker Second Hand Exposure: No; Do You Dip or Chew Tobacco: No; Tobacco Cessation Education Requested by Patient: No Hx Alcohol Use: Yes Alcohol type: wine Hx Substance Use: No Preferred Language: Guatemalan Communication Ability: Effective [employer]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 Review of Systems Review of Systems: Per HPI Physical Exam Physical Exam: GENERAL: A&Ox3. NAD. HEENT: PERRL, EOMI. Moist mucous membranes. NECK: No JVD. No lymphadenopathy. CHEST/LUNGS: CTAB A/P. No crackles, wheezes, rales, rhonchi. HEART: RRR. No m/g/r. No carotid bruits. ABDOMEN: NT/ND, soft. BS+ x4 EXTREMITIES: No cyanosis, no clubbing, no edema SKIN: Warm and dry. No rashes or lesions. PSYCHIATRIC: Euthymic affect, no SI, no pressured speech, no hallucinations NEUROLOGIC: No FND. Results & Data Results & Data ([facility]) Vital Signs (Past 12 Hours) Vital Signs Temp Pulse Pulse Resp BP BP Pulse Ox 07/03/22 19:35 72 106/55 L 100 07/03/22 18:59 36.5 C 78 18 89/53 L 100 O2 Del Method 07/03/22 19:35 Room Air 07/03/22 18:59 Room Air Supervising Physician Co-Signing Physician Notes Attending addendum: I have physically seen this patient, have supervised the medical residents activities, and agree with the H&P unless as otherwise noted. Assessment and Plan: Anemia- Has baseline anemia, likely aggravated by LATASHA- Order CT abdomen pelvis to assess for retroperitoneal bleed Transfusing 2 units PRBCs from the ED Heme-negative in the ED Check peripheral smear Acute kidney injury- Creatinine 3.84 admission, with base 0.94 NSS as noted, recheck laboratories in a.m. Alcoholic liver cirrhosis/esophageal varices- INR 2.0, creatinine 3.84- MELD sodium score calculated 29---27 to 32% 90-day mortality Follow laboratory serially Alcohol use disorder- She reports last alcohol intake was yesterday AWSS protocol Cessation counseling Hypomagnesemia- Magnesium 1.1 Replace IV and recheck laboratories in a.m. Remaining orders and notations as noted Resident Activity Tracking Resident Involvement: Resident Care Provided Care Provided: Adult Hospital Medicine (1) Alcoholic cirrhosis of liver Ascites presence: with ascites Qualified Code(s): K70.31 - Alcoholic cirrhosis of liver with ascites
[2022-07-03] MEDS: MAGNESIUM SULFATE / D5W 1 GM/100 ML BAG IV SCH ×2 (21:57→23:39)
[2022-07-03] MEDS: POTASSIUM CHLORIDE / WTR 10 MEQ/100 ML PLCT IV SCH ×2 (21:58→23:39)
[2022-07-03] MEDS: SODIUM CHLORIDE 0.9% 1000ML 1,000 ML IV SCH (22:05)
[2022-07-03] MEDS ORDERED: SODIUM CHLORIDE 0.9% 250 ML IV PRN (22:09)
[2022-07-03] MEDS ORDERED: LORazepam 2 MG/1 ML VIAL IV PRN (23:22)
[2022-07-03] MEDS ORDERED: PHYTONADIONE 10 MG in DEXTROSE 5% 50 ML IV ONE (23:22)
[2022-07-03] MEDS ORDERED: ONDANSETRON INJ 2 MG/ML 2 ML VIAL IV PRN (23:22)
[2022-07-03 23:38] LABS: Appearance Urine Clear (Clear); Bacteria Urine Automated Negative (Negative); Bilirubin Urine Negative (Negative); Blood Urine Negative (Negative); Cast Urine Automated 0 /lpf (0-5); Color Urine Dark Yellow; Epithelial Cell Urine Auto >30 /lpf (0-5); Glucose Urine UA Negative (Negative); Ketones Urine Trace (Negative); Leukocyte Esterase Urine 2+ (Negative); Nitrite Urine Negative (Negative); Protein Urine Negative (Negative); RBC Urine Automated 0-4 /hpf (0-4); Specific Gravity Urine 1.013 (1.000-1.030); Urobilinogen Urine Negative (Negative); pH Urine 6.5 (4.5-7.5)
[2022-07-04] MEDS: POTASSIUM CHLORIDE / WTR 10 MEQ/100 ML PLCT IV SCH ×2 (00:38→01:42)
[2022-07-04] MEDS ORDERED: diphenhydrAMINE 50 MG/ML VIAL IV STA (01:30)
[2022-07-04] MEDS: FOLIC ACID 1 MG in SYRINGE 9.8 ML IV SCH ×2 (01:34→08:09)
[2022-07-04] MEDS: THIAMINE HCL 100 MG in SYRINGE 9 ML IV SCH ×2 (01:34→08:10)
[2022-07-04] MEDS ORDERED: diphenhydrAMINE 50 MG/ML VIAL ONE (01:40)
[2022-07-04] MEDS: SODIUM CHLORIDE 0.9% 1000ML 1,000 ML IV SCH ×3 (05:01→20:30)
[2022-07-04 07:00] LABS: Hematocrit (blood only) 27.8 % (34.1-44.9); Hemoglobin 9.4 g/dl (12.0-16.0); Mean Corpuscular Hemoglobin 31.3 pg (25.0-34.0); Mean Corpuscular Hgb Conc 33.8 g/dL (32.0-36.0); Mean Corpuscular Volume 92.7 fL (80.0-100.0); Mean Platelet Volume 11.6 fL (9.4-12.3); Platelet Count 59 K/uL (130-400); RDW Coefficient of Variation 17.4 % (11.5-14.5); RDW Standard Deviation 57.7 fL (36.4-46.3); White Blood Count 3.44 K/ul (4.8-10.8)
[2022-07-04 07:16] LABS: INR 1.9 (0.9-1.1); Prothrombin Time 19.3 Seconds (9.0-12.0)
[2022-07-04 07:29] LABS: Albumin Globulin Ratio 0.6 (0.9-2); Albumin Level 2.2 gm/dl (3.4-5.0); BUN Creatinine Ratio 10.1 (10-20); Calcium 6.5 mg/dl (8.5-10.1); Creatinine Clr Calc Pharmacy 16.1 ml/min; Est GFR (African American) 18.7 ml/min; Est GFR (Non-African American) 16.1 ml/min; Globulin 3.6 gm/dl (2.5-4.0); Magnesium 1.5 mg/dl (1.7-2.4); Potassium 3.2 mmol/L (3.5-5.1); Total Protein 5.8 gm/dl (6.0-8.3)
[2022-07-04 07:52] LABS: Anisocytosis Present; Basophils # (auto) 0.03 K/uL (0-0.2); Basophils % (auto) 0.9 %; Eosinophils # (auto) 0.13 K/uL (0-0.50); Eosinophils % (auto) 3.8 %; Immature Granulocytes # (auto) 0.02 K/uL (0.00-0.02); Immature Granulocytes % (auto) 0.6 %; Lymphocytes # (auto) 1.43 K/uL (1.2-3.4); Lymphocytes % (auto) 41.6 %; Monocytes % (auto) 11.6 %; Neutrophils # (auto) 1.43 K/uL (1.4-6.5); Neutrophils % (auto) 41.5 %; Polychromasia 1+; Tear Drop Cells 1+
[2022-07-04] MEDS: CITALOPRAM 20 MG TAB PO SCH (08:08)
[2022-07-04] MEDS: PANTOprazole 40 MG TAB PO SCH (08:10)
--- NOTE | 2022-07-04 08:26 | CT Scan Report ---
ABDOMEN AND PELVIS CT WITHOUT CONTRAST CT DOSE: 280.55 mGy.cm HISTORY: Acute generalized abdominal pain eval for retroperitoneal bleed TECHNIQUE: Multiaxial CT images of the abdomen and pelvis were performed without contrast. A dose lo wering technique was utilized adhering to the principles of ALARA. COMPARISON STUDY: CT abdomen and pelvis 09/29/2016 FINDINGS: Decreased attenuation of the cardiac blood pool compatible with anemia. Coronary artery alden cifications. Clear lung bases. No pneumatosis or pneumoperitoneum. The spleen measures within the upper limits of normal in size. Th ere is mild stranding noted stranding the pancreatic head and neck. Mild generalized pancreatic atrop hy. The adrenal glands are within normal limits. Cholelithiasis with mildly contracted gallbladder. T he common bile duct measures up to 7 mm transversely and is similar to prior. No choledocholithiasis identified. Hepatic steatosis with cirrhosis. No hepatic mass identified. Trace abdominal pelvic asci phillip with mesenteric edema. Unremarkable kidneys. There is no hydronephrosis. Mild urinary bladder wal l thickening with partial distention. Unremarkable uterus and adnexa. Atherosclerosis of the aorta an d iliac arteries. No lymphadenopathy identified. Nonspecific distal esophageal wall thickening with esophageal varicosities. Moderate wall thickening of the stomach with partial distention. No bowel obstruction. Mild colonic diverticulosis with mild c olonic fecal retention. Mild wall thickening of the cecum and ascending colon. Noninflamed appendix. Unremarkable soft tissues. Atrophy of the right psoas muscle. No acute retroperitoneal hemorrhage. Kady mbar levoscoliosis. Degenerative changes of the shoulders and spine. IMPRESSION: 1. Decreased attenuation of the cardiac blood pool compatible with anemia. No acute retroperitoneal h ematoma identified. 2. Hepatic steatosis with cirrhosis, trace abdominal pelvic ascites, esophageal and probable gastric varicosities. 3. Cholelithiasis. 4. Wall thickening of the cecum and ascending colon is likely secondary to portal colopathy. A nonspe cific colitis could appear similarly. 5. Edema involving the pancreatic head and neck is likely secondary to the aforementioned ascites. Co rrelate with lipase level to exclude acute pancreatitis. ACT 112: Negative or not required by law. The above report was generated using voice recognition software. It may contain grammatical, syntax o r spelling errors. Electronically signed by: Pancho Singh M.D. 07/04/2022 8:24 AM
[2022-07-04 12:15] LABS: Potassium 2.5 mmol/L (3.5-5.1)
--- NOTE | 2022-07-04 12:17 | Gastrointestinal Consultation ---
Date of Consultation July 04, 2022 Assessment & Plan (1) Alcoholic cirrhosis of liver: (2) Anemia: Likely Secondary to bleeding hemorrhoids vs. less likely from PHG because she denies black or loose BMs. Plan She had already eaten this morning, precluding EGD and she has EGD arranged for December. EGD can be done as an OP and our office will contact her with a sooner date. Will try to move closer. For hemorrhoids, would try the Miralax, sitz baths and Hydrocortisone 2.5% cream BID prn hemorrhoids as prescribed during GI clinic yesterday. Colorectal surgeon are typically very reluctant to perform a hemorrhoidectomy on pts w cirrhosis as they typically do not heal well. Once kidney function optimizes, then no GI contraindication to discharge (as pt is already ambulating independently in the room and says she feels well). Encouraged to completely abstain from alcohol. GI will sign off. Please notify us of new/worsening GI issues. Continue OP GI f/u w BARRIE Donohue. Supervising Physician Co-Signing Physician Notes I have seen and discussed the management with BARRIE Roper. Alert and oriented to person/place/time, benign abd exam, pe as above. She has had a history of bleeding hemorrhoids in the past and describes noticing blood when she wipes. Admitted for anemia - no reports of of hematemesis or hematochezia, responded to blood tranfusion, mentating well. Agree with further plan of care as documented. History of Present Illness Reason for Consultation: Anemia, Alcoholic Cirrhosis Requesting Physician: Dr. Noel Attending Physician: Harsh Noel History of Present Illness Ms. Caitlin Walsh is a 62 yr old female pt of BARRIE Beltran w a hx of ETOH cirrhosis w grade I EV, PHG and GERD who was seen in OP GI clinic on 07/02 for cirrhosis follow up bleeding hemorrhoids. When labs showed a low H 6.2, she was directed to [facility] for admission. She admits to drinking alcohol 2 days ago. She denies any black or any thick/pasty loose BMs. She has been passing a formed brown BM with bright red blood and having oozing from the hemorrhoids between the BMs as well. She feels like it is "a lot of blood." She denies any abdominal pain. No N/V. On arrival Hb was 6.7. She received 2 units of PRBCs and Hb this morning is 9.7. Non contrast CTAP did not show any new problems there was note of known gallstones, cirrhosis, low volume ascites and wall thickening of the colon and pancreatic neck likely secondary to ascites. She is awake, alert, oriented and hemodynamically stable. Most recent EGD was November 2021 w Grade I EV, PHG and most recent colonoscopy also in November w mild int/ext hemorrhoids. Allergies Allergy/AdvReac Type Severity Reaction Status Date / Time No Known Allergies Allergy Verified 07/03/22 20:56 Home Medications Medication Instructions Recorded Confirmed Type multivitamin 1 tab PO QAM 07/20/21 07/03/22 History folic acid 800 mcg tablet 0.8 mg PO DAILY 11/27/21 07/03/22 History pantoprazole 40 mg tablet,delayed 40 mg PO QAM 11/27/21 07/03/22 History release propranolol 20 mg tablet 10 mg PO BID 11/27/21 07/03/22 History citalopram 20 mg tablet (Celexa) 20 mg PO QAM #30 tabs 01/04/22 07/03/22 Rx furosemide 40 mg tablet 40 mg PO QAM PRN Edema 07/03/22 07/03/22 History hydrocortisone 2.5 % topical cream 1 applic PA UD 07/03/22 07/03/22 History with perineal applicator Patient History Medical History (Updated 07/03/22 @ 23:08 by Clement Vega MD) Alcoholic cirrhosis of liver Anemia Ascites Adames's esophagus Cholelithiasis Common bile duct dilatation Depression Esophageal varices GERD (gastroesophageal reflux disease) GI bleed History of recent blood transfusion 05/26/21 @ [facility] Hypokalemia Macular degeneration of both eyes Pancytopenia Scoliosis Surgical History H/O shoulder surgery right H/O wrist surgery left History of arthroscopy of right knee History of colonoscopy History of dilatation and curettage History of esophagogastroduodenoscopy (EGD) History of hand surgery tendon surgery on pinky finger on right hand History of placement of ear tubes History of tonsillectomy and adenoidectomy History of tooth extraction all teeth removed Hx of lumpectomy benign off breast Family History Mother Hx of cholecystectomy Hypertension Other Cancer Gallbladder disease Lung cancer No family history of adverse response to anesthesia Social History Smoking Status: Former smoker Second Hand Exposure: No; Do You Dip or Chew Tobacco: No; Tobacco Cessation Education Requested by Patient: No Hx Alcohol Use: Yes Alcohol type: wine Hx Substance Use: No Preferred Language: Bengali Communication Ability: Effective Triage Licensed Practical Nurse Required: No Beliefs That Will Affect Care: None Current Living Situation: Spouse current occupational status: employed Other Information That Helps Us Care for You: No Feels Safe at Home: Yes Safety Concerns: Feels Safe At This Time Assistive Devices: Denture - Upper, Denture - Lower, Glasses and Hearing Aid - Bilateral Assistive Devices Comment: Glasses and hearing aids in place. Review of Systems Review of Systems: ROS: Gen: Denies weakness, fevers, weight loss Eyes: No eye redness, or pain, no recent vision changes Resp: No SOB, no cough Cardio: No palpitations/irregular beats, no chest pain GI: As per HPI, otherwis (-) : Denies pain on urination Skin: No jaundice, itching or new rashes Physical Exam Constitutional: WD/WN, vitals as above Eyes: PERRL, conjunctivae normal, anicteric sclerae ENMT: external ear and nose normal, oropharynx normal Neck: trachea midline, no thyromegaly Respiratory: normal respiratory effort, lungs clear to auscultation Cardiovascular: RRR, no murmur, no edema Gastrointestinal (Abdomen): Soft, non distended, normal BS, mild ascites. Anorectal exam deferred as pt reported being frustrated by multiple rectal exams. Musculoskeletal: no cyanosis or clubbing, extremities motor strength 5/5 Skin: no rashes, warm and dry Neurologic: PERRL, EOMI, accommodation nl, no face palsy, no dysarthria Psychiatric: A+Ox3, euthymic affect Lymphatic: no cervical or axillary lymphadenopathy Results & Data ([facility]) Vital Signs (Past 12 Hours) Vital Signs Temp Pulse Pulse Resp BP BP Pulse Ox 07/04/22 06:22 36.7 C 70 16 103/62 99 07/04/22 04:29 36.6 C 73 16 101/56 L 100 07/04/22 03:44 36.6 C 66 16 101/76 99 07/04/22 02:25 36.4 C L 73 16 123/76 97 07/04/22 03:59 36.7 C 75 16 97/63 L 100 07/04/22 03:25 36.6 C 82 16 95/59 L 97 07/04/22 02:25 36.5 C 77 16 95/61 L 99 07/04/22 02:22 36.4 C L 73 16 123/76 97 07/04/22 01:25 36.5 C 81 16 101/62 97 07/04/22 00:55 36.9 C 69 16 124/81 100 07/04/22 00:40 36.5 C 70 16 116/82 99 07/04/22 00:24 36.5 C 68 14 111/75 100 07/04/22 00:00 66 07/03/22 23:32 36.6 C 72 18 108/67 99 O2 Del Method 07/04/22 06:22 07/04/22 04:29 07/04/22 03:44 07/04/22 02:25 07/04/22 03:59 07/04/22 03:25 07/04/22 02:25 07/04/22 02:22 07/04/22 01:25 07/04/22 00:55 07/04/22 00:40 07/04/22 00:24 07/04/22 00:00 07/03/22 23:32 Room Air Laboratory Results WBC 3.4, Hb 9.4, Plts 57, PT 19, INR 1.9, Na 138, K 3.2, Cl 111, CO2 18, BUN 30, Cr 2.96, glucose 79. Diagnostic Findings Non constrast CTAP 07/03/22: 1. Decreased attenuation of the cardiac blood pool compatible with anemia. No acute retroperitoneal hematoma identified. 2. Hepatic steatosis with cirrhosis, trace abdominal pelvic ascites, esophageal and probable gastric varicosities. 3. Cholelithiasis. 4. Wall thickening of the cecum and ascending colon is likely secondary to po rtal colopathy. A nonspecific colitis could appear similarly. 5. Edema involving the pancreatic head and neck is likely secondary to the aforementioned ascites. Correlate with lipase level to exclude acute pancreatitis. (1) Alcoholic cirrhosis of liver Ascites presence: with ascites Qualified Code(s): K70.31 - Alcoholic cirrhosis of liver with ascites
[2022-07-04 12:18] LABS: Hematocrit (blood only) 29.2 % (34.1-44.9)
[2022-07-04] MEDS ORDERED: POTASSIUM CHLORIDE CRTAB 20 MEQ TABCR PO STA (13:20)
[2022-07-04] MEDS ORDERED: MAGNESIUM OXIDE 400 MG TAB PO ONE (13:22)
--- NOTE | 2022-07-04 13:46 | Hospitalist Progress Note ---
Date of Service July 04, 2022 Assessment & Plan (1) Anemia: Plan: 61-year-old female past medical history significant for liver cirrhosis with associated ascites, esophageal varices, and pancytopenia, history of alcohol use disorder, depression, GERD admitted for acute blood loss anemia. Anemia: Presents with hemoglobin of 6.7 with mild hypotension Patient does have chronic anemia, he usually in the 9s to 10s Unclear why current decrease patient has no obvious signs of active bleed, with negative Hemoccult and asymptomatic Blood consent performed; patient will receive 2 unit PRBCs with repeat H/H q6h following CT A/P without contrast ordered to evaluate for retroperitoneal bleed -Hemoglobin improved after transfusion. edmar monitor. -consulted GI, no further workup required. LATASHA: Creatinine of 3.89 on admission, now downtrending at 2.96 Patient usually had normal creatinine levels Suspect this problem is multifactorial Likely some prerenal aspect will continue IV hydration with NSS at 125 cc/h Potentially a hepatorenal aspect to it as well Hold home furosemide as needed and propranolol twice daily -may benefit from spirinolactone and perhaps will hold lasix as an outpatient. Alcoholic liver cirrhosis, esophageal varices: As sequelae of history of alcohol use INR elevated to 2.0 at this time Will administer vitamin K 10 mg IV at this time to attempt to reverse INR Meld NA score of 29 points 27-32% 90-day mortality Daily CBC while admitted Electrolyte abnormalities: K 2.5 on admission. 2 Kcl riders in ED Give 2 additional riders on admission Limiting KCl to 40 mEq at this time due to compromised kidney function Magnesium 1.5 on admission given neck sulfate 2 g in the ED Repeat labs in AM. Alcohol use disorder: Last drink reportedly yesterday Patient reports she has been drinking significantly less Nonetheless, will order at risk AWSS protocol with as needed Ativan Daily thiamine and folate GERD: Continue home pantoprazole 40 mg p.o. daily Depression: Continue citalopram. Code Status: FULL CODE FEN: NSS at 125 cc/h, heart healthy/low-sodium diet DVT ppx: SCDs, chemoprophylaxis contraindicated with elevated INR Dispo: Telemetry (2) Hypomagnesemia: (3) Elevated INR: (4) Depression: (5) GERD (gastroesophageal reflux disease): (6) Alcoholic cirrhosis of liver: (7) Hypokalemia: Admission and Anticipated Discharge Date Admission Date: July 03, 2022 Subjective 62 yo female reports feeling better. She has no new complaints. Review of Systems Review of Systems: All systems reviewed & are unremarkable except as noted in HPI & below Physical Exam Physical Exam: GENERAL: A&Ox3. NAD. HEENT: PERRL, EOMI. Moist mucous membranes. NECK: No JVD. No lymphadenopathy. CHEST/LUNGS: CTAB A/P. HEART: RRR. No m/g/r. No carotid bruits. ABDOMEN: NT/ND, soft. BS+ x4 EXTREMITIES: No cyanosis, no clubbing, no edema SKIN: Warm and dry. No rashes or lesions. PSYCHIATRIC: Euthymic affect, no SI, no pressured speech, no hallucinations NEUROLOGIC: No Focal deficits Results & Data Results & Data ([facility]) Vital Signs (Past 12 Hours) Vital Signs Temp Pulse Pulse Resp BP BP Pulse Ox 07/04/22 11:39 36.7 C 78 18 110/70 99 07/04/22 06:22 36.7 C 70 16 103/62 99 07/04/22 04:29 36.6 C 73 16 101/56 L 100 07/04/22 03:44 36.6 C 66 16 101/76 99 07/04/22 02:25 36.4 C L 73 16 123/76 97 07/04/22 03:59 36.7 C 75 16 97/63 L 100 07/04/22 03:25 36.6 C 82 16 95/59 L 97 07/04/22 02:25 36.5 C 77 16 95/61 L 99 07/04/22 02:22 36.4 C L 73 16 123/76 97 O2 Del Method 07/04/22 11:39 Room Air 07/04/22 06:22 07/04/22 04:29 07/04/22 03:44 07/04/22 02:25 07/04/22 03:59 07/04/22 03:25 07/04/22 02:25 07/04/22 02:22 PG Care Time/CCT Total # of Minutes Spent Total Time Spent with Patient: Total time spent is greater than 50% in coordination of care (as documented) at patient's floor/unit and/or counseling patient: Coding Level of Care Code 15866 Subseq Hosp Care Lvl 3 Diagnoses Anemia D64.9 Hypomagnesemia E83.42 Elevated INR R79.1 Depression F32.9 GERD (gastroesophageal reflux disease) K21.9 Alcoholic cirrhosis of liver K70.31 Ascites presence: with ascites Hypokalemia E87.6 Time Spent (min) 35 (1) Alcoholic cirrhosis of liver Ascites presence: with ascites Qualified Code(s): K70.31 - Alcoholic cirrhosis of liver with ascites
[2022-07-04] MEDS: POTASSIUM CHLORIDE CRTAB 20 MEQ TABCR PO SCH ×2 (13:50→19:59)
[2022-07-04 17:52] LABS: Hematocrit (blood only) 30.9 % (34.1-44.9); Hemoglobin 10.5 g/dl (12.0-16.0)
[2022-07-04 18:14] LABS: BUN Creatinine Ratio 9.9 (10-20); Calcium 6.8 mg/dl (8.5-10.1); Creatinine Clr Calc Pharmacy 18.1 ml/min; Est GFR (African American) 21.6 ml/min; Est GFR (Non-African American) 18.6 ml/min; Potassium 4.1 mmol/L (3.5-5.1)
--- NOTE | 2022-07-04 19:57 | Billing Data ---
Date of Service July 04, 2022 Coding Level of Care Code 27697 Initial Inpt Care Lvl 3
[2022-07-04] MEDS: MAGNESIUM OXIDE 400 MG TAB PO SCH (19:59)
[2022-07-05] MEDS: SODIUM CHLORIDE 0.9% 1000ML 1,000 ML IV SCH (04:31)
[2022-07-05 06:21] LABS: Basophils # (auto) 0.03 K/uL (0-0.2); Basophils % (auto) 0.8 %; Eosinophils # (auto) 0.11 K/uL (0-0.50); Eosinophils % (auto) 2.9 %; Hematocrit (blood only) 26.3 % (34.1-44.9); Hemoglobin 8.9 g/dl (12.0-16.0); Immature Granulocytes # (auto) 0.02 K/uL (0.00-0.02); Immature Granulocytes % (auto) 0.5 %; Lymphocytes # (auto) 1.32 K/uL (1.2-3.4); Lymphocytes % (auto) 34.5 %; Mean Platelet Volume 12.4 fL (9.4-12.3); Monocytes # (auto) 0.43 K/uL (0.24-0.82); Monocytes % (auto) 11.2 %; Neutrophils # (auto) 1.92 K/uL (1.4-6.5); Neutrophils % (auto) 50.1 %; Platelet Count 61 K/uL (130-400); White Blood Count 3.83 K/ul (4.8-10.8)
[2022-07-05 06:36] LABS: INR 1.9 (0.9-1.1); Prothrombin Time 19.3 Seconds (9.0-12.0)
[2022-07-05 06:52] LABS: Albumin Globulin Ratio 0.6 (0.9-2); BUN Creatinine Ratio 11.6 (10-20); Bilirubin,Total 2.1 mg/dl (0.2-1.0); Calcium 6.2 mg/dl (8.5-10.1); Creatinine Clr Calc Pharmacy 22.1 ml/min; Est GFR (African American) 27.4 ml/min; Est GFR (Non-African American) 23.6 ml/min; Globulin 3.2 gm/dl (2.5-4.0); Magnesium 1.3 mg/dl (1.7-2.4); Potassium 4.2 mmol/L (3.5-5.1); Total Protein 5.2 gm/dl (6.0-8.3)
[2022-07-05 06:54] LABS: Echinocytes 1+; Mean Corpuscular Hemoglobin 31.2 pg (25.0-34.0); Mean Corpuscular Hgb Conc 33.8 g/dL (32.0-36.0); Mean Corpuscular Volume 92.3 fL (80.0-100.0); Polychromasia 1+; RDW Coefficient of Variation 18.6 % (11.5-14.5); RDW Standard Deviation 61.8 fL (36.4-46.3); Red Blood Count 2.85 M/uL (3.93-5.22); Tear Drop Cells 1+
[2022-07-05] MEDS: THIAMINE HCL 100 MG in SYRINGE 9 ML IV SCH (09:00)
[2022-07-05] MEDS: MAGNESIUM OXIDE 400 MG TAB PO SCH ×2 (09:00→21:02)
[2022-07-05] MEDS: FOLIC ACID 1 MG in SYRINGE 9.8 ML IV SCH (09:00)
[2022-07-05] MEDS: CITALOPRAM 20 MG TAB PO SCH (09:00)
[2022-07-05] MEDS: PANTOprazole 40 MG TAB PO SCH (09:01)
[2022-07-05] MEDS: POTASSIUM CHLORIDE CRTAB 20 MEQ TABCR PO SCH (09:01)
[2022-07-05 09:44] LABS: Base Excess ABG -9.1 mEq/L (-9-1.8); HCO3 ABG 14 mmol/L (19-24); Oxygen Saturation ABG 99.6 % (90-95); PCO2 ABG 22 mmHg (35-46); PO2 ABG 105 mmHg (80-95)
[2022-07-05] MEDS: SODIUM BICARBONATE 650 MG TAB PO SCH ×2 (09:46→21:02)
[2022-07-05 09:57] LABS: Allen Test Pos (Pos)
--- NOTE | 2022-07-05 12:06 | Nephrology Consultation ---
Date of Consultation July 05, 2022 Assessment & Plan (1) LATASHA (acute kidney injury): Non-oliguric. Creatinine improving. Prerenal consistent with intravascular depletion associated with furosemide. Electrolytes acceptable. 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 Continue IVF to encourage positive fluid balance. CT reviewed. Kidneys are not obstructed. Urine studies notable for WBCs. No RBCs or protein. Kidney dysfunction complicated by NAGMA associated with NSS and cirrhosis. No diarrhea reported. IV switched to 1/2 NS + 75 mEq NaHCO3. Oral NaHCO3 replacement ordered. Document I/O's. Maintain a low sodium diet. Hold furosemide. Repeat a serum metabolic profile tomorrow AM. To help exclude any underlying HRS, urine sodium has been requested. (2) Alcoholic cirrhosis of liver: MELD 24 this AM. Cirrhosis is complicated by ascites and esophageal varices. Minimal ascites on exam. Clinical presentation atypical for HRS. Goals of care discussed. Unfortunately not transplant candidate due to continued alcohol use. GI consultation reviewed. Caitlin is not concerned about stopping drinking. She states that she has done it many times without withdraw. However, she was drinking daily prior to admission. Last drink was yesterday. It is difficult for her to quantify but she states th at she mixes alcohol with her juice all day. She is receiving thiamine, folate, and a daily MVI with close monitoring. (3) Anemia: s/p 2 u PRBC transfusion support. No endoscopic evaluation planned. Denies melena or hematochezia. (4) Hypokalemia: Associated with hypomagnesemia. IV magnesium replacement ordered in addition to PO which has been given. Monitor serum metabolic profile with magnesium and phosphorus daily. (5) Ascites: Minimal. Diuretics held. IV fluids are being provided. History of Present Illness Reason for Consultation: LATASHA Requesting Physician: Harsh Noel Attending Physician: Harsh Noel History of Present Illness Caitlin Walsh is a 62 year-old female with cirrhosis. I saw Caitlin in the nephrology clinic for a history of LATASHA and electrolyte abnormalities in the past. Unfortunately, she was lost to follow up after our appointment in November. Thankfully, at that time, after adjustment in diuretics, kidney function had improved. She had a history of prerenal LATASHA secondary to diuretics complicated by NSAID use. After adjustment in diuretics and holding Ibuprofen, creatinine had normalized. Unfortunately, Caitlin was admitted to [facility] yesterday with acute on chronic anemia and LATASHA. Medical history is notable for a history of alcohol abuse. Caitlin has al coholic cirrhosis. This has been complicated by mild ascites and grade II varices without bleed. She has chronic edema. Caitlin is not listed for transplant. She continues to consume alcohol on a daily basis. Her last alcoholic drink was the day prior to admission. She has a history of GERD as well as history of depression. She thankfully has not had evidence of acute bleeding aside from hemorrhoids. She has not had recent endoscopy or colonoscopy. NO GI evaluation planned at this time. Hgb improved with PRBC transfusion support. Caitlin was resting comfortably in bed with no acute complaints this AM. She denies fluid retention or edema. She denies diarrhea. No melena or hematochezia. She admits that her appetite is poor. She does not eat well at home. She has lost a significant amount of weight in the past few months which she attributes to poor appetite. She also notes that her edema improved previously with diuretics. She had been taking furosemide PRN but for approximately 1 week prior to admission she had been using furosemide daily due to feeling bloated with a sensation of fluid retention in her abdomen. She continues to avoid NSAIDS. There are no new medications. Creatinine 3.89 mg/dL on admission. Creatinine has improved to 2.16 mg/dL with supportive care including IV NSS and PRBC transfusion support. Caitlin is non- oliguric. She is normotensive. CT of the abdomen and pelvis obtained on admission demonstrated the kidneys to be unobstructed. Trace ascites appreciated. Allergies Allergy/AdvReac Type Severity Reaction Status Date / Time No Known Allergies Allergy Verified 07/03/22 20:56 Home Medications Medication Instructions Recorded Confirmed Type multivitamin 1 tab PO QAM 07/20/21 07/03/22 History folic acid 800 mcg tablet 0.8 mg PO DAILY 11/27/21 07/03/22 History pantoprazole 40 mg tablet,delayed 40 mg PO QAM 11/27/21 07/03/22 History release propranolol 20 mg tablet 10 mg PO BID 11/27/21 07/03/22 History citalopram 20 mg tablet (Celexa) 20 mg PO QAM #30 tabs 01/04/22 07/03/22 Rx furosemide 40 mg tablet 40 mg PO QAM PRN Edema 07/03/22 07/03/22 History hydrocortisone 2.5 % topical cream 1 applic [place] UD 07/03/22 07/03/22 History with perineal applicator Patient History Medical History Alcoholic cirrhosis of liver Anemia Ascites Adames's esophagus Cholelithiasis Common bile duct dilatation Depression Esophageal varices GERD (gastroesophageal reflux disease) GI bleed History of recent blood transfusion 05/26/21 @ [facility] Hypokalemia Macular degeneration of both eyes Pancytopenia Scoliosis Surgical History H/O shoulder surgery right H/O wrist surgery left History of arthroscopy of right knee History of colonoscopy History of dilatation and curettage History of esophagogastroduodenoscopy (EGD) History of hand surgery tendon surgery on pinky finger on right hand History of placement of ear tubes History of tonsillectomy and adenoidectomy History of tooth extraction all teeth removed Hx of lumpectomy benign off breast Family History Mother Hx of cholecystectomy Hypertension Other Cancer Gallbladder disease Lung cancer No family history of adverse response to anesthesia Social History Smoking Status: Former smoker Second Hand Exposure: No; Do You Dip or Chew Tobacco: No; Tobacco Cessation Education Requested by Patient: No Hx Alcohol Use: Yes Alcohol type: wine Hx Substance Use: No Preferred Language: Danish Communication Ability: Effective Jacquard Loom Weaver Required: No Beliefs That Will Affect Care: None Current Living Situation: Spouse current occupational status: employed Other Information That Helps Us Care for You: No Feels Safe at Home: Yes Safety Concerns: Feels Safe At This Time Assistive Devices: None Assistive Devices Comment: Glasses and hearing aids in place. Review of Systems Review of Systems: All systems reviewed & are unremarkable except as noted in HPI & below Constitutional: + fatigue and + weight loss Physical Exam Constitutional: well developed, + thin and + frail appearing; no acute distress and not edematous Eyes: + anicteric sclerae; no corneal abnormality ENMT: Mouth: + dry oral mucous membranes; no oral mucosal abnormality Neck: normal visual inspection and trachea midline Respiratory: normal respiratory effort Auscultation: lungs clear to auscultation bilaterally Cardiovascular: Rate/Rhythm: regular rate Heart Sounds: normal S1 and normal S2 Extremities: + pedal edema Gastrointestinal (Abdomen): Inspection/Auscultation: abdomen not distended Percussion/Palpation: abdomen soft; abdomen nontender Musculoskeletal: Extremities: no cyanosis and no clubbing Skin: normal turgor; no lesions Neurologic: Motor/Sensory: no tremor and no asterixis Psychiatric: Orientation: alert and oriented x 3 Results & Data ([facility]) Vital Signs (Past 12 Hours) Vital Signs Temp Pulse Resp BP Pulse Ox O2 Del Method 07/05/22 08:00 Room Air 07/05/22 11:43 36.6 C 80 18 110/75 99 Room Air 07/05/22 08:00 36.9 C 74 16 118/71 100 Room Air 07/05/22 03:00 36.6 C 72 18 116/74 99 Room Air Laboratory Results Laboratory Results - last 24 hr 07/04/22 07/04/22 07/05/22 17:30 17:30 06:07 WBC 3.83 L RBC 2.85 L Hgb 10.5 L 8.9 L Hct 30.9 L 26.3 L MCV 92.3 MCH 31.2 MCHC 33.8 RDW Std Deviation 61.8 H RDW Coeff of Ana 18.6 H Plt Count 61 L MPV 12.4 H Immature Gran % (Auto) 0.5 Neut % (Auto) 50.1 Lymph % (Auto) 34.5 [place] % (Auto) 11.2 Eos % (Auto) 2.9 Baso % (Auto) 0.8 Neut # (Auto) 1.92 Lymph # (Auto) 1.32 [place] # (Auto) 0.43 Eos # (Auto) 0.11 Baso # (Auto) 0.03 Immature Gran # (Auto) 0.02 Polychromasia 1+ Tear Drop Cells 1+ Echinocytes 1+ PT INR ABG pH ABG pCO2 ABG pO2 ABG HCO3 ABG O2 Saturation ABG Base Excess Nash Test Oxygen Given Sodium 140 Potassium 4.1 D Chloride 115 H Carbon Dioxide 17 L Anion Gap 8 BUN 26 H Creatinine 2.63 H D Est Cr Clr Drug Dosing 18.1 Est GFR ( Amer) 21.6 Est GFR (Non-Af Amer) 18.6 BUN/Creatinine Ratio 9.9 L Glucose 108 H Calcium 6.8 L Magnesium Total Bilirubin Direct Bilirubin AST ALT Alkaline Phosphatase Total Protein Albumin Globulin Albumin/Globulin Ratio 07/05/22 07/05/22 07/05/22 06:07 06:07 09:24 WBC RBC Hgb Hct MCV MCH MCHC RDW Std Deviation RDW Coeff of Ana Plt Count MPV Immature Gran % (Auto) Neut % (Auto) Lymph % (Auto) [place] % (Auto) Eos % (Auto) Baso % (Auto) Neut # (Auto) Lymph # (Auto) [place] # (Auto) Eos # (Auto) Baso # (Auto) Immature Gran # (Auto) Polychromasia Tear Drop Cells Echinocytes PT 19.3 H INR 1.9 H ABG pH 7.40 ABG pCO2 22 L ABG pO2 105 H ABG HCO3 14 L ABG O2 Saturation 99.6 H ABG Base Excess -9.1 L Nash Test Pos Oxygen Given ROOM AIR Sodium 143 Potassium 4.2 Chloride 121 H Carbon Dioxide 15 L Anion Gap 7 BUN 25 H Creatinine 2.16 H D Est Cr Clr Drug Dosing 22.1 Est GFR ( Amer) 27.4 Est GFR (Non-Af Amer) 23.6 BUN/Creatinine Ratio 11.6 Glucose 85 Calcium 6.2 L Magnesium 1.3 L Total Bilirubin 2.1 H Direct Bilirubin 1.0 H AST 53 H ALT 20 Alkaline Phosphatase 64 Total Protein 5.2 L Albumin 2.0 L Globulin 3.2 Albumin/Globulin Ratio 0.6 L PG Care Time/CCT Total # of Minutes Spent Total Time Spent with Patient: Total time spent is greater than 50% in coordination of care (as documented) at patient's floor/unit and/or counseling patient: Coding Level of Care Code 53406 Inpt Consult Level 4 Diagnoses LATASHA (acute kidney injury) N17.9 Alcoholic cirrhosis of liver K70.31 Ascites presence: with ascites Anemia D64.9 Hypokalemia E87.6 Ascites R18.8 (1) Alcoholic cirrhosis of liver Ascites presence: with ascites Qualified Code(s): K70.31 - Alcoholic cirrhosis of liver with ascites
[2022-07-05] MEDS: SODIUM CHLORIDE 0.45 % 1,000 ML, SODIUM BICARBONATE 8.4% 75 ML IV SCH ×2 (12:29→21:02)
[2022-07-05] MEDS: MAGNESIUM SULFATE / D5W 1 GM/100 ML BAG IV SCH ×2 (13:12→15:21)
[2022-07-05 13:44] LABS: Creatinine Urine Random 155.8 mg/dl
[2022-07-05 17:42] LABS: BUN Creatinine Ratio 10.2 (10-20); Calcium 6.6 mg/dl (8.5-10.1); Creatinine Clr Calc Pharmacy 23.2 ml/min; Est GFR (African American) 29.2 ml/min; Est GFR (Non-African American) 25.2 ml/min; Potassium 4.4 mmol/L (3.5-5.1)
--- NOTE | 2022-07-05 22:14 | Electrocardiogram Report ---
Test Reason : Blood Pressure : / mmHG Vent. Rate : 069 BPM Atrial Rate : 069 BPM P-R Int : 152 ms QRS Dur : 082 ms QT Int : 480 ms P-R-T Axes : 009 056 023 degrees QTc Int : 514 ms Poor data quality, interpretation may be adversely affected Sinus rhythm Nonspecific ST and T wave abnormality Prolonged QT Abnormal ECG When compared with ECG of 28-NOV-2021 07:44, Nonspecific T wave abnormality, worse in Inferior leads Nonspecific T wave abnormality, worse in Anterior leads Confirmed by Carlos Omalley ([id number]) on 07/05/2022 10:14:15 PM Referred By: Katy Nath Confirmed By:Carlos Omalley
--- NOTE | 2022-07-05 22:25 | Hospitalist Progress Note ---
Date of Service July 05, 2022 Assessment & Plan (1) Anemia: Plan: 61-year-old female past medical history significant for liver cirrhosis with associated ascites, esophageal varices, and pancytopenia, history of alcohol use disorder, depression, GERD admitted for acute blood loss anemia. Anemia: Presents with hemoglobin of 6.7 with mild hypotension Patient does have chronic anemia, he usually in the 9s to 10s Unclear why current decrease patient has no obvious signs of active bleed, with negative Hemoccult and asymptomatic Blood consent performed; patient will receive 2 unit PRBCs with repeat H/H q6h following CT A/P without contrast ordered to evaluate for retroperitoneal bleed -Hemoglobin improved after transfusion. edmar monitor. -consulted GI, no further workup required. -continue to montior labs LATASHA: Creatinine of 3.89 on admission, now downtrending at 2.96 Patient usually had normal creatinine levels Suspect this problem is multifactorial Likely some prerenal aspect will continue IV hydration with NSS at 125 cc/h Potentially a hepatorenal aspect to it as well Hold home furosemide as needed and propranolol twice daily -may benefit from spirinolactone and perhaps will hold lasix as an outpatient. due to acidosis, will add bicarb and consult nephro. -abg shows mixed metabolic acidosis with respiratory alkalosis will recheck bmp in AM. Alcoholic liver cirrhosis, esophageal varices: As sequelae of history of alcohol use INR elevated to 2.0 at this time Will administer vitamin K 10 mg IV at this time to attempt to reverse INR Meld NA score of 29 points 27-32% 90-day mortality -Maddrey is above 32, will monitor, if remains elevated will place on prednisolone in AM Daily CBC while admitted Electrolyte abnormalities: K 2.5 on admission. 2 Kcl riders in ED replenished Alcohol use disorder: Last drink reportedly day prior to admission Patient reports she has been drinking significantly less Nonetheless, will order at risk AWSS protocol with as needed Ativan Daily thiamine and folate GERD: Continue home pantoprazole 40 mg p.o. daily Depression: Continue citalopram. Code Status: FULL CODE FEN: NSS at 125 cc/h, heart healthy/low-sodium diet DVT ppx: SCDs, chemoprophylaxis contraindicated with elevated INR Dispo: Telemetry (2) Hypomagnesemia: (3) Elevated INR: (4) Depression: (5) GERD (gastroesophageal reflux disease): (6) Alcoholic cirrhosis of liver: (7) Hypokalemia: Admission and Anticipated Discharge Date Admission Date: July 03, 2022 Subjective 62 yo female reports feeling well. Review of Systems Review of Systems: All systems reviewed & are unremarkable except as noted in HPI & below Physical Exam Physical Exam: GENERAL: A&Ox3. NAD. HEENT: PERRL, EOMI. Moist mucous membranes. NECK: No JVD. No lymphadenopathy. CHEST/LUNGS: CTAB A/P. HEART: RRR. No m/g/r. No carotid bruits. ABDOMEN: NT/ND, soft. BS+ x4 EXTREMITIES: No cyanosis, no clubbing, no edema SKIN: Warm and dry. No rashes or lesions. PSYCHIATRIC: Euthymic affect, no SI, no pressured speech, no hallucinations NEUROLOGIC: No Focal deficits Results & Data Results & Data ([facility]) Vital Signs (Past 12 Hours) Vital Signs Temp Pulse Resp BP Pulse Ox O2 Del Method 07/05/22 19:38 36.7 C 72 18 121/74 98 Room Air 07/05/22 16:22 37.0 C 76 18 106/69 98 Room Air 07/05/22 11:43 36.6 C 80 18 110/75 99 Room Air PG Care Time/CCT Total # of Minutes Spent Total Time Spent with Patient: Total time spent is greater than 50% in coordination of care (as documented) at patient's floor/unit and/or counseling patient: Coding Level of Care Code 78625 Subseq Hosp Care Lvl 3 Diagnoses Anemia D64.9 Hypomagnesemia E83.42 Elevated INR R79.1 Depression F32.9 GERD (gastroesophageal reflux disease) K21.9 Alcoholic cirrhosis of liver K70.31 Ascites presence: with ascites Hypokalemia E87.6 (1) Alcoholic cirrhosis of liver Ascites presence: with ascites Qualified Code(s): K70.31 - Alcoholic cirrhosis of liver with ascites
[2022-07-06 06:33] LABS: Basophils # (auto) 0.04 K/uL (0-0.2); Eosinophils # (auto) 0.12 K/uL (0-0.50); Eosinophils % (auto) 2.9 %; Hematocrit (blood only) 26.5 % (34.1-44.9); Hemoglobin 8.9 g/dl (12.0-16.0); Immature Granulocytes # (auto) 0.03 K/uL (0.00-0.02); Immature Granulocytes % (auto) 0.7 %; Lymphocytes # (auto) 1.46 K/uL (1.2-3.4); Mean Platelet Volume 11.6 fL (9.4-12.3); Monocytes # (auto) 0.45 K/uL (0.24-0.82); Monocytes % (auto) 10.8 %; Neutrophils # (auto) 2.07 K/uL (1.4-6.5); Neutrophils % (auto) 49.6 %; Platelet Count 70 K/uL (130-400); White Blood Count 4.17 K/ul (4.8-10.8)
[2022-07-06 06:56] LABS: Albumin Globulin Ratio 0.6 (0.9-2); Albumin Level 2.1 gm/dl (3.4-5.0); BUN Creatinine Ratio 10.9 (10-20); Calcium 6.7 mg/dl (8.5-10.1); Creatinine Clr Calc Pharmacy 31.9 ml/min; Echinocytes 1+; Est GFR (African American) 37.9 ml/min; Est GFR (Non-African American) 32.7 ml/min; Globulin 3.6 gm/dl (2.5-4.0); INR 1.8 (0.9-1.1); Magnesium 1.7 mg/dl (1.7-2.4); Mean Corpuscular Hemoglobin 31.2 pg (25.0-34.0); Mean Corpuscular Hgb Conc 33.6 g/dL (32.0-36.0); Phosphorus 1.6 mg/dl (2.5-4.9); Polychromasia 1+; Potassium 4.2 mmol/L (3.5-5.1); Prothrombin Time 18.4 Seconds (9.0-12.0); RDW Coefficient of Variation 18.5 % (11.5-14.5); RDW Standard Deviation 62.6 fL (36.4-46.3); Red Blood Count 2.85 M/uL (3.93-5.22); Tear Drop Cells 1+; Total Protein 5.7 gm/dl (6.0-8.3)
[2022-07-06] MEDS: FOLIC ACID 1 MG in SYRINGE 9.8 ML IV SCH (08:37)
[2022-07-06] MEDS: SODIUM BICARBONATE 650 MG TAB PO SCH ×2 (08:37→21:45)
[2022-07-06] MEDS: MAGNESIUM OXIDE 400 MG TAB PO SCH ×2 (08:37→21:46)
[2022-07-06] MEDS: PANTOprazole 40 MG TAB PO SCH (08:37)
[2022-07-06] MEDS: CITALOPRAM 20 MG TAB PO SCH (08:37)
[2022-07-06] MEDS: THIAMINE HCL 100 MG in SYRINGE 9 ML IV SCH (08:37)
[2022-07-06] MEDS ORDERED: SODIUM PHOSPHATE 3 MMOL/1 ML INFUSION IV STA (09:23)
[2022-07-06] MEDS ORDERED: SODIUM PHOSPHATE 24 MMOL in DEXTROSE 5% 500 ML IV ONE (09:45)
--- NOTE | 2022-07-06 11:16 | Nephrology Progress Note ---
Date of Service July 06, 2022 Assessment & Plan (1) LATASHA (acute kidney injury): Plan: * Non-oliguric LATASHA. Renal injury due to profound anemia and dehydration * Cr improved to 1.6 today * PO4 and Ca supplementation as per primary service * Recheck PRP in am (2) Alcoholic cirrhosis of liver: Plan: * Cirrhosis complicated by ascites and esophageal varices. Unfortunately not transplant candidate due to continued alcohol use * Continue thiamine, folate, and a daily MVI (3) Anemia: Plan: * s/p 2 u PRBC transfusion support * Evaluated by GI. No endoscopic evaluation planned at this time * Reports frequent hemorrhoidal bleeding. Consider surgical consultation to assess need for hemorrhoidectomy Admission and Anticipated Discharge Date Admission Date: July 03, 2022 Subjective Miss Walsh was evaluated in her hospital room this morning. She denied overt GI blood loss. She voiced no new medical concerns Review of Systems Constitutional: no fever Eyes: no problem reported Ear, Nose, Mouth, Throat: no problem reported Respiratory: no dyspnea Cardiovascular: no chest pain Gastrointestinal: no abdominal pain Genitourinary: no dysuria Neurologic: no confusion Physical Exam Constitutional: not in distress Eyes: PERRL, conjunctivae normal, anicteric sclerae ENMT: external ear and nose normal, oropharynx normal Neck: trachea midline, no thyromegaly Respiratory: normal respiratory effort, lungs clear to auscultation Cardiovascular: RRR, no murmur, no edema Gastrointestinal (Abdomen): normal bowel sounds, soft, nontender, no hepatosplenomegaly Skin: no rashes, warm and dry Neurologic: Speech / Cognition: normal speech and normal cognition Results & Data ([facility]) Vital Signs (Past 12 Hours) Vital Signs Temp Pulse Pulse Resp BP Pulse Ox O2 Del Method 07/06/22 08:34 Room Air 07/06/22 08:23 36.8 C 73 20 100/61 99 Room Air 07/06/22 06:37 82 07/06/22 03:09 36.5 C 77 18 111/68 100 Room Air 07/06/22 00:14 36.8 C 75 18 113/70 99 Room Air Laboratory Results Laboratory Tests 07/06/22 07/06/22 06:05 06:05 WBC 4.17 L Hgb 8.9 L Hct 26.5 L Plt Count 70 L Sodium 142 Potassium 4.2 Chloride 118 H Carbon Dioxide 19 L BUN 18 Creatinine 1.65 H D Calcium 6.7 L Phosphorus 1.6 L Albumin 2.1 L PG Care Time/CCT Total # of Minutes Spent Total Time Spent with Patient: Total time spent is greater than 50% in coordination of care (as documented) at patient's floor/unit and/or counseling patient: Coding Level of Care Code 89184 Subseq Hosp Care Lvl 3 Diagnoses LATASHA (acute kidney injury) N17.9 Alcoholic cirrhosis of liver K70.31 Ascites presence: with ascites Anemia D64.9 (1) Alcoholic cirrhosis of liver Ascites presence: with ascites Qualified Code(s): K70.31 - Alcoholic cirrhosis of liver with ascites
[2022-07-06] MEDS: POT PHOSPHATE MONOBASIC W/ SOD TAB PO SCH ×3 (12:20→21:46)
[2022-07-06] MEDS: prednisoLONE sod phosphate 15 MG/5 ML PO SCH (12:20)
[2022-07-06] MEDS: POLYETHYLENE (MIRALAX) 17 GM PACK PO SCH (12:20)
--- NOTE | 2022-07-06 13:05 | Hospitalist Progress Note ---
Date of Service July 06, 2022 Assessment & Plan (1) Anemia: Plan: 61-year-old female past medical history significant for liver cirrhosis with associated ascites, esophageal varices, and pancytopenia, history of alcohol use disorder, depression, GERD admitted for acute blood loss anemia. Anemia: -Acute blood loss anemia Presents with hemoglobin of 6.7 with mild hypotension Patient does have chronic anemia, he usually in the 9s to 10s Unclear why current decrease patient has no obvious signs of active bleed, with negative Hemoccult and asymptomatic Blood consent performed; patient will receive 2 unit PRBCs with repeat H/H q6h following CT A/P without contrast ordered to evaluate for retroperitoneal bleed -Hemoglobin improved after transfusion. edmar monitor. -consulted GI, no further workup required. -continue to montior labs LATASHA: Creatinine of 3.89 on admission, now downtrending at 2.96 Patient usually had normal creatinine levels Suspect this problem is multifactorial Likely some prerenal aspect will continue IV hydration with NSS at 125 cc/h Potentially a hepatorenal aspect to it as well Hold home furosemide as needed and propranolol twice daily -may benefit from spirinolactone and perhaps will hold lasix as an outpatient. -due to acidosis, will add bicarb and consult nephro. -ABG shows mixed metabolic acidosis with respiratory alkalosis -improved with bicarb. will recheck in AM. Alcoholic liver cirrhosis, esophageal varices: -initially concern over possible bleeding esophageal varices, but cllinical progression and lack of dark stools makes this diagnosis unlikely. As sequelae of history of alcohol use INR elevated to 2.0 at this time Will administer vitamin K 10 mg IV at this time to attempt to reverse INR Meld NA score of 29 points 27-32% 90-day mortality -Roddrey is above 32, will place on prednisolone, 40 mg daily for 28 days followed by taper. Daily CBC while admitted -will check U?S for ascities, may need paracenthesis. Electrolyte abnormalities: K 2.5 on admission. 2 Kcl riders in ED replenished -hypophosphatemia: will replace. Alcohol use disorder: Last drink reportedly day prior to admission Patient reports she has been drinking significantly less Nonetheless, will order at risk AWSS protocol with as needed Ativan Daily thiamine and folate -Hemorrhoids: placed on topical steriods and sitz baths. GERD: Continue home pantoprazole 40 mg p.o. daily Depression: Continue citalopram. Code Status: FULL CODE DVT ppx: SCDs, chemoprophylaxis contraindicated with elevated INR Dispo: Telemetry (2) Hypomagnesemia: (3) Elevated INR: (4) Depression: (5) GERD (gastroesophageal reflux disease): (6) Alcoholic cirrhosis of liver: (7) Hypokalemia: Admission and Anticipated Discharge Date Admission Date: July 03, 2022 Subjective Patient reports sensation of feeling full. She has no appetite. She reports her hemorrhoids are painful. Review of Systems Review of Systems: All systems reviewed & are unremarkable except as noted in HPI & below Physical Exam Physical Exam: GENERAL: A&Ox3. NAD. HEENT: PERRL, EOMI. Moist mucous membranes. NECK: No JVD. No lymphadenopathy. CHEST/LUNGS: CTAB A/P. HEART: RRR. No m/g/r. No carotid bruits. ABDOMEN: NT/ND, soft. BS+ x4 EXTREMITIES: No cyanosis, no clubbing, no edema SKIN: Warm and dry. No rashes or lesions. PSYCHIATRIC: Euthymic affect, no SI, no pressured speech, no hallucinations NEUROLOGIC: No Focal deficits Results & Data Results & Data ([facility]) Vital Signs (Past 12 Hours) Vital Signs Temp Pulse Pulse Resp BP Pulse Ox O2 Del Method 07/06/22 12:00 36.9 C 82 18 96/65 L 97 Room Air 07/06/22 08:34 Room Air 07/06/22 08:23 36.8 C 73 20 100/61 99 Room Air 07/06/22 06:37 82 07/06/22 03:09 36.5 C 77 18 111/68 100 Room Air PG Care Time/CCT Total # of Minutes Spent Total Time Spent with Patient: Total time spent is greater than 50% in coordination of care (as documented) at patient's floor/unit and/or counseling patient: Coding Level of Care Code 49766 Subseq Hosp Care Lvl 3 Diagnoses Anemia D64.9 Hypomagnesemia E83.42 Elevated INR R79.1 Depression F32.9 GERD (gastroesophageal reflux disease) K21.9 Alcoholic cirrhosis of liver K70.31 Ascites presence: with ascites Hypokalemia E87.6 (1) Alcoholic cirrhosis of liver Ascites presence: with ascites Qualified Code(s): K70.31 - Alcoholic cirrhosis of liver with ascites
[2022-07-06] MEDS: HYDROCORTISONE HC 2.5% CRM 30GM TUBE EXT SCH ×2 (14:48→21:48)
--- NOTE | 2022-07-06 18:39 | XRay Report ---
XR KUB/Abdomen 1 view CLINICAL HISTORY: abd. distention TECHNIQUE: 1 view of the abdomen was obtained. Comparison: Comparison is made to CT abdomen pelvis 07/03/2020 FINDINGS: Lung bases are unremarkable. Degenerative changes are seen in the visualized skeleton. The bowel gas pattern is nonobstructive. A moderate amount of stool is noted within the large bowel. IMPRESSION: Nonobstructive bowel gas pattern. ACT 112: Negative or not required by law. Electronically signed by: Pollo Vidales M.D. 07/06/2022 6:37 PM
[2022-07-07 06:16] LABS: Hematocrit (blood only) 23.2 % (34.1-44.9); Mean Corpuscular Hemoglobin 31.4 pg (25.0-34.0); Mean Corpuscular Hgb Conc 34.5 g/dL (32.0-36.0); Mean Platelet Volume 11.5 fL (9.4-12.3); Platelet Count 59 K/uL (130-400); RDW Coefficient of Variation 18.4 % (11.5-14.5); RDW Standard Deviation 61.1 fL (36.4-46.3); Red Blood Count 2.55 M/uL (3.93-5.22); White Blood Count 5.98 K/ul (4.8-10.8)
[2022-07-07 06:42] LABS: BUN Creatinine Ratio 10.9 (10-20); Bilirubin Direct 0.6 mg/dl (0-0.2); Bilirubin,Total 1.6 mg/dl (0.2-1.0); Creatinine Clr Calc Pharmacy 36.1 ml/min; Est GFR (African American) 43.6 ml/min; Est GFR (Non-African American) 37.6 ml/min; Potassium 4.2 mmol/L (3.5-5.1); Total Protein 5.3 gm/dl (6.0-8.3)
[2022-07-07 06:46] LABS: INR 1.8 (0.9-1.1); Prothrombin Time 18.2 Seconds (9.0-12.0)
--- NOTE | 2022-07-07 07:28 | Ultrasound Report ---
US abdomen ltd ascites CLINICAL HISTORY: feeling of fullness COMPARISON STUDY: CT of the abdomen and pelvis July 03, 2022. TECHNIQUE: Sonography of the abdomen and pelvis was performed to assess volume of ascites. FINDINGS: Liver is cirrhotic. Splenomegaly is noted. Small amount of ascites is noted. IMPRESSION: 1. Small amount of ascites. 2. Cirrhosis with splenomegaly. ACT 112: Negative or not required by law. Electronically signed by: Santo Gonzalez M.D. 07/07/2022 7:27 AM
[2022-07-07] MEDS: POT PHOSPHATE MONOBASIC W/ SOD TAB PO SCH ×4 (08:16→19:59)
[2022-07-07] MEDS: THIAMINE HCL 100 MG in SYRINGE 9 ML IV SCH (08:16)
[2022-07-07] MEDS: MAGNESIUM OXIDE 400 MG TAB PO SCH ×2 (08:16→19:59)
[2022-07-07] MEDS: prednisoLONE sod phosphate 15 MG/5 ML PO SCH (08:16)
[2022-07-07] MEDS: SODIUM BICARBONATE 650 MG TAB PO SCH ×2 (08:16→19:59)
[2022-07-07] MEDS: FOLIC ACID 1 MG in SYRINGE 9.8 ML IV SCH (08:16)
[2022-07-07] MEDS: CITALOPRAM 20 MG TAB PO SCH (08:17)
[2022-07-07] MEDS: POLYETHYLENE (MIRALAX) 17 GM PACK PO SCH (08:17)
[2022-07-07] MEDS: PANTOprazole 40 MG TAB PO SCH (08:17)
[2022-07-07] MEDS: HYDROCORTISONE HC 2.5% CRM 30GM TUBE EXT SCH ×2 (08:17→20:00)
--- NOTE | 2022-07-07 09:04 | Nephrology Progress Note ---
Date of Service July 07, 2022 Assessment & Plan (1) LATASHA (acute kidney injury): Plan: * Non-oliguric LATASHA. Renal injury due to profound anemia and dehydration * Cr improved to 1.47 today (baseline 0.9) * 07/06/22 abdominal US revealed only a small amount of ascites. Will monitor clinically. If ascites worsens, will consider starting low dose spironolactone/furosemide * PO4 and Ca supplementation as per primary service * Recheck PRP in am (2) Alcoholic cirrhosis of liver: Plan: * Cirrhosis complicated by ascites and esophageal varices. Unfortunately not transplant candidate due to continued alcohol use * Continue thiamine, folate, and a daily MVI (3) Anemia: Plan: * s/p 2 u PRBC transfusion support * Evaluated by GI. No endoscopic evaluation planned at this time * Reports frequent hemorrhoidal bleeding. Consider surgical consultation to assess need for hemorrhoidectomy Admission and Anticipated Discharge Date Admission Date: July 03, 2022 Subjective Miss Walsh was evaluated in her hospital room this morning. She denied overt GI blood loss. She c/o abdominal fullness and expressed concern that she is developing ascites Review of Systems Constitutional: no fever Eyes: no problem reported Ear, Nose, Mouth, Throat: no problem reported Respiratory: no dyspnea Cardiovascular: no chest pain Gastrointestinal: no abdominal pain Genitourinary: no dysuria Neurologic: no confusion Physical Exam Constitutional: not in distress Eyes: PERRL, conjunctivae normal, anicteric sclerae ENMT: external ear and nose normal, oropharynx normal Neck: trachea midline, no thyromegaly Respiratory: normal respiratory effort, lungs clear to auscultation Cardiovascular: RRR, no murmur, no edema Gastrointestinal (Abdomen): normal bowel sounds, soft, nontender, no hepatosplenomegaly Skin: no rashes, warm and dry Neurologic: Speech / Cognition: normal speech and normal cognition Results & Data ([facility]) Vital Signs (Past 12 Hours) Vital Signs Temp Pulse Pulse Resp BP Pulse Ox O2 Del Method 07/07/22 08:12 36.6 C 73 17 116/72 98 Room Air 07/07/22 03:30 36.9 C 93 H 20 111/68 96 Room Air 07/07/22 00:44 36.7 C 79 20 115/73 98 Room Air 07/06/22 22:18 91 H Laboratory Results Laboratory Tests 07/07/22 07/07/22 05:56 05:56 WBC 5.98 Hgb 8.0 L Hct 23.2 L Plt Count 59 L Sodium 142 Potassium 4.2 Chloride 117 H Carbon Dioxide 20 L BUN 16 Creatinine 1.47 H Glucose 125 H Albumin 2.0 L PG Care Time/CCT Total # of Minutes Spent Total Time Spent with Patient: Total time spent is greater than 50% in coordination of care (as documented) at patient's floor/unit and/or counseling patient: Coding Level of Care Code 54622 Subseq Hosp Care Lvl 3 Diagnoses LATASHA (acute kidney injury) N17.9 Alcoholic cirrhosis of liver K70.31 Ascites presence: with ascites Anemia D64.9 (1) Alcoholic cirrhosis of liver Ascites presence: with ascites Qualified Code(s): K70.31 - Alcoholic cirrhosis of liver with ascites
--- NOTE | 2022-07-07 10:04 | Hospitalist Progress Note ---
Date of Service July 07, 2022 Assessment & Plan (1) Anemia: Plan: 61-year-old female past medical history significant for liver cirrhosis with associated ascites, esophageal varices, and pancytopenia, history of alcohol use disorder, depression, GERD admitted for acute blood loss anemia. Anemia: -Acute blood loss anemia Presents with hemoglobin of 6.7 with mild hypotension Patient does have chronic anemia, he usually in the 9s to 10s Unclear why current decrease patient has no obvious signs of active bleed, with negative Hemoccult and asymptomatic Blood consent performed; patient received 2U PRBCs CT A/P without contrast ordered to evaluate for retroperitoneal bleed -Hemoglobin improved after transfusion. edmar monitor. -consulted GI, no further workup required. -continue to montior labs LATASHA: Creatinine of 3.89 on admission,now downtrending at 1.47 Patient usually had normal creatinine levels Suspect this problem is multifactorial Likely some prerenal aspect will continue IV hydration with NSS at 125 cc/h Potentially a hepatorenal aspect to it as well Hold home furosemide as needed and propranolol twice daily -may benefit from spironolactone and perhaps will hold lasix as an outpatient. -ABG shows mixed metabolic acidosis with respiratory alkalosis -improved with bicarb. Alcoholic liver cirrhosis, esophageal varices: -initially concern over possible bleeding esophageal varices, but clinical progression and lack of dark stools makes this diagnosis unlikely. As sequelae of history of alcohol use INR elevated to 1.8 at this time vitamin K 10 mg IV administered on admission for INR 2.0 Meld NA score of 29 points 27-32% 90-day mortality - Maddrey is above 32, will place on prednisolone, 40 mg daily for 28 days followed by taper. Daily CBC while admitted - US reveals small amounts of ascites, cirrhosis and splenomegaly. Patient would not benefit from paracentesis at this time. - May have more gaseous distention. - Increase Miralax to 3x daily. Electrolyte abnormalities: K 2.5 on admission. 2 Kcl riders in ED replenished -hypophosphatemia: will replace. Alcohol use disorder: Last drink reportedly day prior to admission Patient reports she has been drinking significantly less Nonetheless, will order at risk AWSS protocol with as needed Ativan Daily thiamine and folate -Hemorrhoids: placed on topical steriods and sitz baths. GERD: Continue home pantoprazole 40 mg p.o. daily Depression: Continue citalopram. Code Status: FULL CODE DVT ppx: SCDs, chemoprophylaxis contraindicated with elevated INR Dispo: Telemetry (2) Hypomagnesemia: (3) Elevated INR: (4) Depression: (5) GERD (gastroesophageal reflux disease): (6) Alcoholic cirrhosis of liver: (7) Hypokalemia: Admission and Anticipated Discharge Date Admission Date: July 03, 2022 Supervising Physician Co-Signing Physician Notes I personally examined the patient and verified all dominguez points of history and exam, discussed case, and agree with decision making with Dr Morrow Overall feeling okay. Main complaint is bloated belly. She thinks she might have recurrent ascites. Also notes that her bowels are moving as much as they have been, and she is belching a lot. Vitals noted, in general she is awake and alert Pleasant no distress. HEENT normocephalic atraumatic mucous membranes moist. Breathing unlabored no accessory muscle use good effort. Abdomen soft mildly distended nontender, no notable fluid wave. No guarding rebound or rigidity. Abdominal bloatultrasound with only small ascites, and physical exam more consistent with gaseous bloating, as is her history (burping, reduction in bowel movements, overall bloating, early satiety)discussed that with small amount of ascites paracentesis would not likely be of benefit to the bloating, and that with LATASHA, currently spironolactone would likely be more harm than good (discussed this obviously would be a different situation even in the potentially near future after her volume status has stabilized)but with it being most likely a gaseous/constipation bloatingincrease MiraLAX to 3 times daily. Anemiaappears to be acute blood loss anemia from hemorrhoids, also possibly a degree of hypoproliferative. No indications for transfusion at this time. Hemoglobin a bit lower than yesterday, although I suspect lab variation rather than ongoing dropthat said, follow into tomorrow. AKIimproving. Appreciate nephrology input. Cirrhosiswith elevated INR, and elevated bilirubin. Outpatient follow-up with GI If LATASHA continues to improve and hemoglobin stable, hopefully home tomorrow. Subjective Patient seen at the bedside this morning without any acute complaints. She states it has been a little vague on when she would be leaving. She first came to the ED after getting some lab work for GI outpatient when she was evaluated for hemorrhoids and being told to go to the hospital due to concerning lab values. She had filled 2 bags of blood when she first came in however states it is not as bad now, however still with some small amounts of blood. Review of Systems Review of Systems: Per HPI Physical Exam Constitutional: WD/WN, vitals as above Eyes: PERRL, conjunctivae normal, anicteric sclerae Respiratory: normal respiratory effort, lungs clear to auscultation Cardiovascular: RRR, no murmur, no edema Gastrointestinal (Abdomen): BS+, soft, mildly distended abdomen w/ gaseous feel as opposed to fluid, non-tender. Psychiatric: A+Ox3, euthymic affect Results & Data Results & Data ([facility]) Vital Signs (Past 12 Hours) Vital Signs Temp Pulse Pulse Resp BP Pulse Ox O2 Del Method 07/07/22 08:14 Room Air 07/07/22 06:04 88 07/07/22 08:12 36.6 C 73 17 116/72 98 Room Air 07/07/22 03:30 36.9 C 93 H 20 111/68 96 Room Air 07/07/22 00:44 36.7 C 79 20 115/73 98 Room Air 07/06/22 22:18 91 H Resident Activity Tracking Resident Involvement: Resident Care Provided Care Provided: Adult Hospital Medicine (1) Alcoholic cirrhosis of liver Ascites presence: with ascites Qualified Code(s): K70.31 - Alcoholic cirrhosis of liver with ascites
--- NOTE | 2022-07-07 15:44 | Emergency Department Note ---
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 Patient states she was evaluated by them in the office and had laboratory work done as she does have a history of recurrent anemia. She was notified today that her hemoglobin is low and she would need to be evaluated in the emergency department. Patient states she is asymptomatic and is somewhat upset by this scenario. She does have a history of chronic alcohol abuse and hypokalemia. She does carry an elevated INR due to cirrhosis of the liver. REVIEW OF SYSTEMS: A review of systems was performed with positives and pertinent negatives listed in the history of present illness. 10 systems were reviewed and are otherwise negative. ALLERGIES: see below MEDICATIONS: see below PMH: see below SOCIAL HISTORY: see below DDx: Diverticulosis, AVM, coagulopathy, colitis, inflammatory bowel disease, malignancy, Norma-Kyle tear, esophagitis, peptic ulcer disease, variceal bleed, gastritis, epistaxis, fissure, hemorrhoids, as well as other pathologies. PHYSICAL EXAM: Vital signs reviewed. General: Chronically ill-appearing 62-year-old female, in no significant distress. HEENT: No scleral icterus, PERRLA, neck supple. MMM. Cardiovascular: Regular rate and rhythm, no extra sounds. Pulmonary: Clear to auscultation bilaterally, normal work of breathing. Abdomen: Soft, nontender, nondistended, positive bowel sounds. Musculoskeletal: Atraumatic, no peripheral edema. Rectal: Guaiac negative light brown stool. Painful on exam Neurologic: Patient awake alert and oriented x 3 Skin: Warm, dry, no rash EMERGENCY DEPARTMENT COURSE/MDM: This patient was evaluated and appeared to be in no significant distress. Patient was somewhat irritated that she was in the emergency department. Hemoglobin was reported to be as an outpatient and confirmed to be 6.7 here. She was typed and crossed for 2 units of PRBCs and blood transfusion consent was signed. Patient's Hemoccult was negative, although I do have strong suspicion this is a chronic GI loss due to her cirrhosis of the liver and varicosities. Potassium is noted to be 2.5, magnesium of 1.1 with an alcohol of 119. Potassium and magnesium were repleted intravenously. Case was discussed with the hospitalist service who will evaluate the patient for admission and further management. MONITORING: An order for cardiac monitoring was placed and the patient is noted to be in a NSR at 77 beats per minute. RADIOLOGY: see below EKG: Sinus rhythm at [address] and T wave abnormality in the anterior lateral leads. No PVC, no PAC. QTc is prolonged at 514. DISPOSITION: Admission I have personally spent 45 minutes of critical care time in the direct management of this patient. This was a life/limb threatening event. This 45 minutes is in excess of all separately billable procedures. Past Med/Surg History Medical History Alcoholic cirrhosis of liver Anemia Ascites Adames's esophagus Cholelithiasis Common bile duct dilatation Depression Esophageal varices GERD (gastroesophageal reflux disease) GI bleed History of recent blood transfusion 05/26/21 @ [facility] Hypokalemia Macular degeneration of both eyes Pancytopenia Scoliosis Surgical History H/O shoulder surgery right H/O wrist surgery left History of arthroscopy of right knee History of colonoscopy History of dilatation and curettage History of esophagogastroduodenoscopy (EGD) History of hand surgery tendon surgery on pinky finger on right hand History of placement of ear tubes History of tonsillectomy and adenoidectomy History of tooth extraction all teeth removed Hx of lumpectomy benign off breast Family History Mother Hx of cholecystectomy Hypertension Other Cancer Gallbladder disease Lung cancer No family history of adverse response to anesthesia Social History Smoking Status: Former smoker Second Hand Exposure: No; Hx Alcohol Use: Yes Alcohol type: wine Hx Substance Use: No Preferred Language: Irish Communication Ability: Effective 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 Beliefs That Will Affect Care: None Current Living Situation: Spouse current occupational status: employed Feels Safe at Home: Yes Assistive Devices: None Allergies Allergies Allergy/AdvReac Type Severity Reaction Status Date / Time No Known Allergies Allergy Verified 07/03/22 20:56 Home Meds Home Medications Medication Instructions Recorded Confirmed multivitamin 1 tab PO QAM 07/20/21 07/03/22 folic acid 800 mcg tablet 0.8 mg PO DAILY 11/27/21 07/03/22 pantoprazole 40 mg tablet,delayed 40 mg PO QAM 11/27/21 07/03/22 release propranolol 20 mg tablet 10 mg PO BID 11/27/21 07/03/22 furosemide 40 mg tablet 40 mg PO QAM PRN Edema 07/03/22 07/03/22 hydrocortisone 2.5 % topical cream 1 applic TX UD 07/03/22 07/03/22 with perineal applicator Previous Rx's Medication Instructions Recorded citalopram 20 mg tablet (Celexa) 20 mg PO QAM #30 tabs 01/04/22 magnesium oxide 400 mg (241.3 mg 400 mg PO BID 30 days #60 tabs 07/08/22 magnesium) tablet potassium chloride 20 mEq 20 meq PO DAILY #30 tabs 07/08/22 tablet,extended release prednisone 20 mg tablet 40 mg PO DAILY 26 days #56 tabs 07/08/22 Results & Data (ED) Home Medications Current Medication List: was personally reviewed by me Laboratory Data Attestation: I reviewed the patient's lab results. Result diagrams: 07/08/22 05:43 07/08/22 05:43 Lab Results 07/03/22 07/03/22 07/03/22 Range/Units 19:11 19:25 19:25 WBC 5.30 (4.8-10.8) K/ul RBC 2.08 L (3.93-5.22) M/uL Hgb 6.7 L* (12.0-16.0) g/dl Hct 20.5 L* (34.1-44.9) % MCV 98.6 (80.0-100.0) fL MCH 32.2 (25.0-34.0) pg MCHC 32.7 (32.0-36.0) g/dL RDW Std Deviation 72.2 H (36.4-46.3) fL RDW Coeff of Ana 20.0 H (11.5-14.5) % Plt Count 88 L (130-400) K/uL MPV 12.5 H (9.4-12.3) fL Immature Gran % (Auto) 0.8 % Neut % (Auto) 48.1 % Lymph % (Auto) 33.4 % [place] % (Auto) 14.3 % Eos % (Auto) 2.5 % Baso % (Auto) 0.9 % Neut # (Auto) 2.55 (1.4-6.5) K/uL Lymph # (Auto) 1.77 (1.2-3.4) K/uL [place] # (Auto) 0.76 (0.24-0.82) K/uL Eos # (Auto) 0.13 (0-0.50) K/uL Baso # (Auto) 0.05 (0-0.2) K/uL Immature Gran # (Auto) 0.04 H (0.00-0.02) K/uL Platelet Estimate Decreased L (Normal) Anisocytosis Present Tear Drop Cells 1+ Ovalocytes 1+ PT 20.1 H (9.0-12.0) Seconds INR 2.0 H (0.9-1.1) Sodium (136-145) mmol/L Potassium (3.5-5.1) mmol/L Chloride (98-107) mmol/L Carbon Dioxide (21-32) mmol/L Anion Gap (3-11) BUN (6-23) mg/dl Creatinine (0.6-1.2) mg/dl Est Cr Clr Drug Dosing ml/min Est GFR ( Amer) ml/min Est GFR (Non-Af Amer) ml/min BUN/Creatinine Ratio (10-20) Glucose (70-99(Fasting)) mg/dl Calcium (8.5-10.1) mg/dl Magnesium (1.7-2.4) mg/dl Total Bilirubin (0.2-1.0) mg/dl AST (13-39) U/L ALT (7-52) U/L Alkaline Phosphatase (34-104) U/L Troponin I High Sens (0-14) pg/ml Total Protein (6.0-8.3) gm/dl Albumin (3.4-5.0) gm/dl Globulin (2.5-4.0) gm/dl Albumin/Globulin Ratio (0.9-2) TSH (0.300-4.500) uIu/ml Urine Color Dark Yellow Urine Appearance Clear (Clear) Urine pH 6.5 (4.5-7.5) Ur Specific [place] 1.013 (1.000-1.030) Urine Protein Negative (Negative) Urine Glucose (UA) Negative (Negative) Urine Ketones Trace H (Negative) Urine Blood Negative (Negative) Urine Nitrite Negative (Negative) Urine Bilirubin Negative (Negative) Urine Urobilinogen Negative (Negative) Ur Leukocyte Esterase 2+ H (Negative) Urine WBC (Auto) 10-30 H (0-5) /hpf Urine RBC (Auto) 0-4 (0-4) /hpf U Hyaline Cast (Auto) 0 (0-5) /lpf U Epithel Cells (Auto) >30 H (0-5) /lpf Urine Bacteria (Auto) Negative (Negative) Ethyl Alcohol mg/dL (<10.0) mg/dl SARS-CoV-2, RNA, NAAT (NEGATIVE) Blood Type Antibody Screen Crossmatch 07/03/22 07/03/22 07/03/22 Range/Units 19:25 19:25 19:25 WBC (4.8-10.8) K/ul RBC (3.93-5.22) M/uL Hgb (12.0-16.0) g/dl Hct (34.1-44.9) % MCV (80.0-100.0) fL MCH (25.0-34.0) pg MCHC (32.0-36.0) g/dL RDW Std Deviation (36.4-46.3) fL RDW Coeff of Ana (11.5-14.5) % Plt Count (130-400) K/uL MPV (9.4-12.3) fL Immature Gran % (Auto) % Neut % (Auto) % Lymph % (Auto) % [place] % (Auto) % Eos % (Auto) % Baso % (Auto) % Neut # (Auto) (1.4-6.5) K/uL Lymph # (Auto) (1.2-3.4) K/uL [place] # (Auto) (0.24-0.82) K/uL Eos # (Auto) (0-0.50) K/uL Baso # (Auto) (0-0.2) K/uL Immature Gran # (Auto) (0.00-0.02) K/uL Platelet Estimate (Normal) Anisocytosis Tear Drop Cells Ovalocytes PT (9.0-12.0) Seconds INR (0.9-1.1) Sodium 138 (136-145) mmol/L Potassium 2.5 L* (3.5-5.1) mmol/L Chloride 106 (98-107) mmol/L Carbon Dioxide 19 L (21-32) mmol/L Anion Gap 13 H (3-11) BUN 32 H (6-23) mg/dl Creatinine 3.84 H (0.6-1.2) mg/dl Est Cr Clr Drug Dosing 12.4 ml/min Est GFR ( Amer) 13.6 ml/min Est GFR (Non-Af Amer) 11.8 ml/min BUN/Creatinine Ratio 8.3 L (10-20) Glucose 96 (70-99(Fasting)) mg/dl Calcium 7.1 L (8.5-10.1) mg/dl Magnesium 1.1 L (1.7-2.4) mg/dl Total Bilirubin 1.3 H (0.2-1.0) mg/dl AST 61 H (13-39) U/L ALT 24 (7-52) U/L Alkaline Phosphatase 95 (34-104) U/L Troponin I High Sens 6.5 (0-14) pg/ml Total Protein 6.5 (6.0-8.3) gm/dl Albumin 2.4 L (3.4-5.0) gm/dl Globulin 4.1 H (2.5-4.0) gm/dl Albumin/Globulin Ratio 0.6 L (0.9-2) TSH 4.099 (0.300-4.500) uIu/ml Urine Color Urine Appearance (Clear) Urine pH (4.5-7.5) Ur Specific [place] (1.000-1.030) Urine Protein (Negative) Urine Glucose (UA) (Negative) Urine Ketones (Negative) Urine Blood (Negative) Urine Nitrite (Negative) Urine Bilirubin (Negative) Urine Urobilinogen (Negative) Ur Leukocyte Esterase (Negative) Urine WBC (Auto) (0-5) /hpf Urine RBC (Auto) (0-4) /hpf U Hyaline Cast (Auto) (0-5) /lpf U Epithel Cells (Auto) (0-5) /lpf Urine Bacteria (Auto) (Negative) Ethyl Alcohol mg/dL 119.8 H (<10.0) mg/dl SARS-CoV-2, RNA, NAAT (NEGATIVE) Blood Type Antibody Screen Crossmatch 07/03/22 07/03/22 07/03/22 Range/Units 19:26 19:26 20:00 WBC (4.8-10.8) K/ul RBC (3.93-5.22) M/uL Hgb (12.0-16.0) g/dl Hct (34.1-44.9) % MCV (80.0-100.0) fL MCH (25.0-34.0) pg MCHC (32.0-36.0) g/dL RDW Std Deviation (36.4-46.3) fL RDW Coeff of Ana (11.5-14.5) % Plt Count (130-400) K/uL MPV (9.4-12.3) fL Immature Gran % (Auto) % Neut % (Auto) % Lymph % (Auto) % [place] % (Auto) % Eos % (Auto) % Baso % (Auto) % Neut # (Auto) (1.4-6.5) K/uL Lymph # (Auto) (1.2-3.4) K/uL [place] # (Auto) (0.24-0.82) K/uL Eos # (Auto) (0-0.50) K/uL Baso # (Auto) (0-0.2) K/uL Immature Gran # (Auto) (0.00-0.02) K/uL Platelet Estimate (Normal) Anisocytosis Tear Drop Cells Ovalocytes PT (9.0-12.0) Seconds INR (0.9-1.1) Sodium (136-145) mmol/L Potassium (3.5-5.1) mmol/L Chloride (98-107) mmol/L Carbon Dioxide (21-32) mmol/L Anion Gap (3-11) BUN (6-23) mg/dl Creatinine (0.6-1.2) mg/dl Est Cr Clr Drug Dosing ml/min Est GFR ( Amer) ml/min Est GFR (Non-Af Amer) ml/min BUN/Creatinine Ratio (10-20) Glucose (70-99(Fasting)) mg/dl Calcium (8.5-10.1) mg/dl Magnesium (1.7-2.4) mg/dl Total Bilirubin (0.2-1.0) mg/dl AST (13-39) U/L ALT (7-52) U/L Alkaline Phosphatase (34-104) U/L Troponin I High Sens (0-14) pg/ml Total Protein (6.0-8.3) gm/dl Albumin (3.4-5.0) gm/dl Globulin (2.5-4.0) gm/dl Albumin/Globulin Ratio (0.9-2) TSH (0.300-4.500) uIu/ml Urine Color Urine Appearance (Clear) Urine pH (4.5-7.5) Ur Specific [place] (1.000-1.030) Urine Protein (Negative) Urine Glucose (UA) (Negative) Urine Ketones (Negative) Urine Blood (Negative) Urine Nitrite (Negative) Urine Bilirubin (Negative) Urine Urobilinogen (Negative) Ur Leukocyte Esterase (Negative) Urine WBC (Auto) (0-5) /hpf Urine RBC (Auto) (0-4) /hpf U Hyaline Cast (Auto) (0-5) /lpf U Epithel Cells (Auto) (0-5) /lpf Urine Bacteria (Auto) (Negative) Ethyl Alcohol mg/dL (<10.0) mg/dl SARS-CoV-2, RNA, NAAT NEGATIVE (NEGATIVE) Blood Type O Positive Cancelled Antibody Screen NEGATIVE Cancelled Crossmatch See Detail Administered Medications Discontinued Medications Citalopram Hydrobromide (Citalopram 20 Mg Tab) 20 mg PO QAM [facility] Stop: 08/03/22 08:59 Last Admin: 07/08/22 08:09 Dose: 20 mg Documented By: Admin: 07/07/22 08:17 Dose: 20 mg Documented By: Admin: 07/06/22 08:37 Dose: 20 mg Documented By: Admin: 07/05/22 09:00 Dose: 20 mg Documented By: Admin: 07/04/22 08:08 Dose: 20 mg Documented By: KRISSY Diphenhydramine HCl (Diphenhydramine 50 Mg/Ml Vial) 25 mg IV NOW STA Stop: 07/04/22 01:31 Last Admin: 07/04/22 01:41 Dose: 25 mg Documented By: ANA Diphenhydramine HCl (Diphenhydramine 50 Mg/Ml Vial) Confirm Administered Dose 50 mg .ROUTE .STK-MED ONE Stop: 07/04/22 01:41 Last Admin: 07/04/22 01:43 Dose: Not Given Documented By: ANA Furosemide (Furosemide 40 Mg Tab) 40 mg PO NOW ONE Stop: 07/08/22 11:24 Last Admin: 07/08/22 12:20 Dose: 40 mg Documented By: DANUTA Hydrocortisone (Hydrocortisone Hc 2.5% Crm 30gm Tube) 1 appln EXT BID FELISHA Stop: 08/05/22 11:59 Last Admin: 07/08/22 08:09 Dose: 1 appln Documented By: Admin: 07/07/22 20:00 Dose: 1 appln Documented By: Admin: 07/07/22 08:17 Dose: 1 appln Documented By: Admin: 07/06/22 21:48 Dose: 1 appln Documented By: Admin: 07/06/22 14:48 Dose: 1 appln Documented By: BHUPINDER Magnesium Sulfate/Dextrose (Magnesium Sulfate / D5w) 1 gm in 100 mls @ 200 mls/hr IV Q30M FELISHA Stop: 07/03/22 22:22 Last Infusion: 07/04/22 00:49 Dose: 0 mls/hr Documented By: Admin: 07/03/22 23:39 Dose: 200 mls/hr Documented By: Infusion: 07/03/22 22:30 Dose: 0 mls/hr Documented By: Admin: 07/03/22 21:57 Dose: 200 mls/hr Documented By: ALBERTO Potassium Chloride (K Taz / Wtr) 10 meq in 100 mls @ 100 mls/hr IV Q1H FELISHA; Protocol Stop: 07/03/22 23:29 Last Infusion: 07/04/22 00:49 Dose: 0 mls/hr Documented By: Admin: 07/03/22 23:39 Dose: 100 mls/hr Documented By: Infusion: 07/03/22 22:58 Dose: 100 mls/hr Documented By: Admin: 07/03/22 21:58 Dose: 100 mls/hr Documented By: ALBERTO Sodium Chloride (Nss 1000ml) 250 mls @ 999 mls/hr IV .Q16M ONE Stop: 07/03/22 21:38 Last Infusion: 07/03/22 23:59 Dose: 999 mls/hr Documented By: Admin: 07/03/22 23:18 Dose: 999 mls/hr Documented By: ANA Sodium Chloride (Nss 1000ml) 1,000 mls @ 125 mls/hr IV .Q8H FELISHA Stop: 08/02/22 21:29 Last Infusion: 07/05/22 12:29 Dose: 0 mls/hr Documented By: Admin: 07/05/22 04:31 Dose: 125 mls/hr Documented By: Infusion: 07/05/22 04:30 Dose: 125 mls/hr Documented By: Admin: 07/04/22 20:30 Dose: 125 mls/hr Documented By: Admin: 07/04/22 19:54 Dose: Not Given Documented By: Infusion: 07/04/22 13:01 Dose: 125 mls/hr Documented By: Admin: 07/04/22 05:01 Dose: 125 mls/hr Documented By: Infusion: 07/04/22 05:01 Dose: 125 mls/hr Documented By: Admin: 07/03/22 22:05 Dose: 125 mls/hr Documented By: MES Thiamine HCl 100 mg/ Syringe 10 mls @ 2 mls/min IV QAM FELISHA Stop: 08/02/22 23:21 Last Admin: 07/08/22 08:08 Dose: 2 mls/min Documented By: Admin: 07/07/22 08:16 Dose: 2 mls/min Documented By: Admin: 07/06/22 08:37 Dose: 2 mls/min Documented By: Admin: 07/05/22 09:00 Dose: 2 mls/min Documented By: Admin: 07/04/22 08:10 Dose: 2 mls/min Documented By: Admin: 07/04/22 01:34 Dose: 2 mls/min Documented By: ANA Folic Acid 1 mg/ Syringe 10 mls @ 5 mls/min IV QAM FELISHA Stop: 08/02/22 23:21 Last Admin: 07/08/22 08:08 Dose: 5 mls/min Documented By: Admin: 07/07/22 08:16 Dose: 5 mls/min Documented By: Admin: 07/06/22 08:37 Dose: 5 mls/min Documented By: Admin: 07/05/22 09:00 Dose: 5 mls/min Documented By: Admin: 07/04/22 08:09 Dose: 5 mls/min Documented By: Admin: 07/04/22 01:34 Dose: 5 mls/min Documented By: ANA Phytonadione 10 mg/ Dextrose 51 mls @ 102 mls/hr IV ONE ONE Stop: 07/03/22 23:51 Last Infusion: 07/04/22 01:33 Dose: 0 mls/hr Documented By: Admin: 07/04/22 00:56 Dose: 102 mls/hr Documented By: ANA Potassium Chloride (K Taz / Wtr) 10 meq in 100 mls @ 100 mls/hr IV Q1H FELISHA Stop: 07/04/22 01:21 Last Infusion: 07/04/22 02:53 Dose: 100 mls/hr Documented By: Admin: 07/04/22 01:42 Dose: 100 mls/hr Documented By: Infusion: 07/04/22 01:38 Dose: 100 mls/hr Documented By: Admin: 07/04/22 00:38 Dose: 100 mls/hr Documented By: ANA Sodium Chloride/ Sodium (Bicarbonate) 1,075 mls @ 125 mls/hr IV .Q8H36M FELISHA Stop: 07/06/22 04:14 Last Infusion: 07/06/22 04:26 Dose: 0 mls/hr Documented By: Admin: 07/05/22 21:02 Dose: 125 mls/hr Documented By: Infusion: 07/05/22 21:02 Dose: 125 mls/hr Documented By: Admin: 07/05/22 12:29 Dose: 125 mls/hr Documented By: CARLY Magnesium Sulfate/Dextrose (Magnesium Sulfate / D5w) 1 gm in 100 mls @ 50 mls/hr IV Q2H FELISHA Stop: 07/05/22 16:29 Last Infusion: 07/05/22 17:21 Dose: 0 mls/hr Documented By: Admin: 07/05/22 15:21 Dose: 50 mls/hr Documented By: Infusion: 07/05/22 15:12 Dose: 0 mls/hr Documented By: Admin: 07/05/22 13:12 Dose: 50 mls/hr Documented By: CARLY Sodium Phosphate 24 mmol/ (Dextrose) 508 mls @ 127 mls/hr IV ONE ONE Stop: 07/06/22 13:44 Last Infusion: 07/06/22 14:28 Dose: 0 mls/hr Documented By: Admin: 07/06/22 10:15 Dose: 127 mls/hr Documented By: BHUPINDER Magnesium Oxide (Magnesium Oxide 400 Mg Tab) 400 mg PO BID FELISHA Stop: 08/03/22 20:59 Last Admin: 07/08/22 08:06 Dose: 400 mg Documented By: Admin: 07/07/22 19:59 Dose: 400 mg Documented By: Admin: 07/07/22 08:16 Dose: 400 mg Documented By: Admin: 07/06/22 21:46 Dose: 400 mg Documented By: Admin: 07/06/22 08:37 Dose: 400 mg Documented By: Admin: 07/05/22 21:02 Dose: 400 mg Documented By: Admin: 07/05/22 09:00 Dose: 400 mg Documented By: Admin: 07/04/22 19:59 Dose: 400 mg Documented By: PEDRO Magnesium Oxide (Magnesium Oxide 400 Mg Tab) 400 mg PO ONE ONE Stop: 07/04/22 13:23 Last Admin: 07/04/22 13:50 Dose: 400 mg Documented By: WILFREDO Pantoprazole Sodium (Pantoprazole 40 Mg Tab) 40 mg PO QAM [facility] Stop: 08/03/22 08:59 Last Admin: 07/08/22 08:08 Dose: 40 mg Documented By: Admin: 07/07/22 08:17 Dose: 40 mg Documented By: Admin: 07/06/22 08:37 Dose: 40 mg Documented By: Admin: 07/05/22 09:01 Dose: 40 mg Documented By: Admin: 07/04/22 08:10 Dose: 40 mg Documented By: KRISSY Polyethylene Glycol (Polyethylene (Miralax) 17 Gm Pack) 17 gm PO DAILY FELISHA Stop: 08/05/22 11:59 Last Admin: 07/07/22 08:17 Dose: 17 gm Documented By: Admin: 07/06/22 12:20 Dose: 17 gm Documented By: BHUPINDER Polyethylene Glycol (Polyethylene (Miralax) 17 Gm Pack) 17 gm PO SuTu@1800 [facility] Stop: 08/06/22 17:59 Last Admin: 07/07/22 17:53 Dose: 17 gm Documented By: BHUPINDER Potassium Chloride (Potassium Chloride Crtab 20 Meq Tabcr) 40 meq PO NOW STA Stop: 07/04/22 13:21 Last Admin: 07/04/22 13:50 Dose: 40 meq Documented By: WILFREDO Potassium Chloride (Potassium Chloride Crtab 20 Meq Tabcr) 20 meq PO TID [facility] Stop: 07/05/22 14:01 Last Admin: 07/05/22 09:01 Dose: 20 meq Documented By: Admin: 07/04/22 19:59 Dose: 20 meq Documented By: Admin: 07/04/22 13:50 Dose: Not Given Documented By: WILFREDO Potassium Phosphate (Pot Phosphate Monobasic W/ Sod Tab) 1 tab PO QID [facility] Stop: 08/05/22 12:59 Last Admin: 07/08/22 12:21 Dose: 1 tab Documented By: Admin: 07/08/22 08:05 Dose: 1 tab Documented By: Admin: 07/07/22 19:59 Dose: 1 tab Documented By: Admin: 07/07/22 17:53 Dose: 1 tab Documented By: Admin: 07/07/22 13:19 Dose: 1 tab Documented By: Admin: 07/07/22 08:16 Dose: 1 tab Documented By: Admin: 07/06/22 21:46 Dose: 1 tab Documented By: Admin: 07/06/22 17:24 Dose: 1 tab Documented By: Admin: 07/06/22 12:20 Dose: 1 tab Documented By: BHUPINDER Prednisolone Sodium Phosphate (Prednisolone Sod Phosphate 15 Mg/5 Ml) 40 mg PO DAILY [facility] Stop: 08/05/22 08:59 Last Admin: 07/08/22 08:09 Dose: 40 mg Documented By: Admin: 07/07/22 08:16 Dose: 40 mg Documented By: Admin: 07/06/22 12:20 Dose: 40 mg Documented By: BHUPINDER Sodium Bicarbonate (Sodium Bicarbonate 650 Mg Tab) 650 mg PO BID FELISHA Stop: 08/04/22 08:59 Last Admin: 07/08/22 08:05 Dose: 650 mg Documented By: Admin: 07/07/22 19:59 Dose: 650 mg Documented By: Admin: 07/07/22 08:16 Dose: 650 mg Documented By: Admin: 07/06/22 21:45 Dose: 650 mg Documented By: Admin: 07/06/22 08:37 Dose: 650 mg Documented By: Admin: 07/05/22 21:02 Dose: 650 mg Documented By: Admin: 07/05/22 09:46 Dose: 650 mg Documented By: CMP Blood Pressure Blood Pressure Findings: Low blood pressure Blood Pressure Disposition: further management by hospitalist Discharge Plan Visit Data Chief Complaint: Referred by Doctor Stated Complaint: REFER BY DOC,BLOOD TROUBLE, TRANSFUSION AND FLUIDS ED Provider: Mireya Potts Discharge Problem: Anemia, Hypomagnesemia, Alcoholic cirrhosis of liver, Elevated INR, Hypokalemia Patient Disposition: Admitted As Inpatient Discharge Instructions Interventions: ED Discharge Assessment Last Done: 07/03/22 22:34
--- NOTE | 2022-07-07 17:41 | Billing Data ---
Date of Service July 07, 2022 Coding Level of Care Code 88231 Subseq Hosp Care Lvl 3
[2022-07-07] MEDS ORDERED: POLYETHYLENE (MIRALAX) 17 GM PACK PO SCH (18:00)
[2022-07-08 06:24] LABS: Basophils # (auto) 0.02 K/uL (0-0.2); Basophils % (auto) 0.3 %; Eosinophils # (auto) 0.07 K/uL (0-0.50); Eosinophils % (auto) 1.1 %; Hematocrit (blood only) 24.7 % (34.1-44.9); Hemoglobin 8.3 g/dl (12.0-16.0); Immature Granulocytes # (auto) 0.08 K/uL (0.00-0.02); Immature Granulocytes % (auto) 1.2 %; Lymphocytes % (auto) 27.4 %; Mean Corpuscular Hemoglobin 31.8 pg (25.0-34.0); Mean Corpuscular Hgb Conc 33.6 g/dL (32.0-36.0); Mean Corpuscular Volume 94.6 fL (80.0-100.0); Mean Platelet Volume 11.2 fL (9.4-12.3); Monocytes # (auto) 0.56 K/uL (0.24-0.82); Monocytes % (auto) 8.5 %; Neutrophils # (auto) 4.04 K/uL (1.4-6.5); Neutrophils % (auto) 61.5 %; Platelet Count 65 K/uL (130-400); RDW Coefficient of Variation 18.9 % (11.5-14.5); Red Blood Count 2.61 M/uL (3.93-5.22); White Blood Count 6.57 K/ul (4.8-10.8)
[2022-07-08 06:47] LABS: BUN Creatinine Ratio 11.5 (10-20); Calcium 7.8 mg/dl (8.5-10.1); Creatinine Clr Calc Pharmacy 35.8 ml/min; Est GFR (African American) 43.2 ml/min; Est GFR (Non-African American) 37.3 ml/min; Magnesium 1.5 mg/dl (1.7-2.4); Phosphorus 3.7 mg/dl (2.5-4.9)
[2022-07-08] MEDS: POT PHOSPHATE MONOBASIC W/ SOD TAB PO SCH ×2 (08:05→12:21)
[2022-07-08] MEDS: SODIUM BICARBONATE 650 MG TAB PO SCH (08:05)
[2022-07-08] MEDS: MAGNESIUM OXIDE 400 MG TAB PO SCH (08:06)
[2022-07-08] MEDS: THIAMINE HCL 100 MG in SYRINGE 9 ML IV SCH (08:08)
[2022-07-08] MEDS: PANTOprazole 40 MG TAB PO SCH (08:08)
[2022-07-08] MEDS: FOLIC ACID 1 MG in SYRINGE 9.8 ML IV SCH (08:08)
[2022-07-08] MEDS: prednisoLONE sod phosphate 15 MG/5 ML PO SCH (08:09)
[2022-07-08] MEDS: CITALOPRAM 20 MG TAB PO SCH (08:09)
[2022-07-08] MEDS: HYDROCORTISONE HC 2.5% CRM 30GM TUBE EXT SCH (08:09)
--- NOTE | 2022-07-08 09:01 | Nephrology Progress Note ---
Date of Service July 08, 2022 Assessment & Plan (1) LATASHA (acute kidney injury): Plan: * Non-oliguric LATASHA. Renal injury due to profound anemia and dehydration * Cr improved to 1.48 today (baseline 0.9) * 07/06/22 abdominal US revealed only a small amount of ascites * PO4 and Ca supplementation as per primary service * No further Nephrology evaluation indicated at this time. Will sign off. Please call if further assistance is needed * Recommend patient follow up w/ GI and PCP for outpatient monitoring and determination whether to add in low dose diuretic, aldosterone antagonist (2) Alcoholic cirrhosis of liver: Plan: * Cirrhosis complicated by ascites and esophageal varices. Unfortunately not transplant candidate due to continued alcohol use * Continue thiamine, folate, and a daily MVI (3) Anemia: Plan: * s/p 2 u PRBC transfusion support * Evaluated by GI. No endoscopic evaluation planned at this time * Reports frequent hemorrhoidal bleeding. Consider surgical consultation to assess need for hemorrhoidectomy Admission and Anticipated Discharge Date Admission Date: July 03, 2022 Subjective Miss Walsh was evaluated in her hospital room this morning. She denied overt GI blood loss. She c/o abdominal fullness and constipation Review of Systems Constitutional: no fever Eyes: no problem reported Ear, Nose, Mouth, Throat: no problem reported Respiratory: no dyspnea Cardiovascular: no chest pain Gastrointestinal: no abdominal pain Genitourinary: no dysuria Neurologic: no confusion Physical Exam Constitutional: not in distress Eyes: PERRL, conjunctivae normal, anicteric sclerae ENMT: external ear and nose normal, oropharynx normal Neck: trachea midline, no thyromegaly Respiratory: normal respiratory effort, lungs clear to auscultation Cardiovascular: RRR, no murmur, no edema Gastrointestinal (Abdomen): normal bowel sounds, soft, nontender, no hepatosplenomegaly Skin: no rashes, warm and dry Neurologic: Speech / Cognition: normal speech and normal cognition Results & Data ([facility]) Vital Signs (Past 12 Hours) Vital Signs Temp Pulse Resp BP Pulse Ox O2 Del Method 07/08/22 08:22 37 C 82 18 111/70 98 Room Air 07/08/22 06:29 36.9 C 77 18 117/70 97 Room Air 07/08/22 00:00 36.9 C 84 18 138/50 L 98 Room Air Laboratory Results Laboratory Tests 07/08/22 07/08/22 05:43 05:43 WBC 6.57 Hgb 8.3 L Hct 24.7 L Plt Count 65 L Sodium 143 Potassium 4.0 Chloride 116 H Carbon Dioxide 22 BUN 17 Creatinine 1.48 H PG Care Time/CCT Total # of Minutes Spent Total Time Spent with Patient: Total time spent is greater than 50% in coordination of care (as documented) at patient's floor/unit and/or counseling patient: Coding Level of Care Code 33439 Subseq Hosp Care Lvl 3 Diagnoses LATASHA (acute kidney injury) N17.9 Alcoholic cirrhosis of liver K70.31 Ascites presence: with ascites Anemia D64.9 (1) Alcoholic cirrhosis of liver Ascites presence: with ascites Qualified Code(s): K70.31 - Alcoholic cirrhosis of liver with ascites
[2022-07-08] MEDS ORDERED: FUROSEMIDE 40 MG TAB PO ONE (11:23)
--- NOTE | 2022-07-08 13:07 | Discharge Summary ---
Date of Service July 08, 2022 Admission HPI Per Admitting Provider 61-year-old female past medical history significant for liver cirrhosis with associated ascites, esophageal varices, and pancytopenia, history of alcohol use disorder, depression, GERD presented to the ER at request of outside provider due to outside lab work revealing hemoglobin of 6.7. Patient herself denies chest pain, shortness of breath, abdominal pain, diarrhea, nausea, vomiting, hematemesis. She states she was scheduled to see her PCP due to hemorrhoids that have been bothering her as of late. However, denying bloody or dark BMs. She follows with [facility]. Patient states her last drink was yesterday and that she has been drinking significantly less as of late. Patient's lab work also significant for INR of 2.0, potassium 2.5, creatinine 3.84, calcium 7.1, magnesium 1.1, T bili 1.3, AST 61, ALT 24, alk phos 95. Troponin 6.5, albumin 2.4, TSH 4.099. Ethyl alcohol level of 119.8. She was ordered 2 units PRBCs. Also given magnesium sulfate 1 g x 2, 2 KCl riders. Admission Exam Per Admitting Provider GENERAL: A&Ox3. NAD. HEENT: PERRL, EOMI. Moist mucous membranes. NECK: No JVD. No lymphadenopathy. CHEST/LUNGS: CTAB A/P. No crackles, wheezes, rales, rhonchi. HEART: RRR. No m/g/r. No carotid bruits. ABDOMEN: NT/ND, soft. BS+ x4 EXTREMITIES: No cyanosis, no clubbing, no edema SKIN: Warm and dry. No rashes or lesions. PSYCHIATRIC: Euthymic affect, no SI, no pressured speech, no hallucinations NEUROLOGIC: No FND. Principal Diagnosis Anemia, LATASHA, Cirrhosis Discharge Exam Constitutional WD/WN, vitals as above Eyes PERRL, conjunctivae normal, anicteric sclerae Respiratory normal respiratory effort, lungs clear to auscultation Cardiovascular RRR, no murmur, no edema Gastrointestinal (Abdomen) BS+, soft, mildly distended, non-tender. Psychiatric A+Ox3, euthymic affect Discharge Data Allergies Allergy/AdvReac Type Severity Reaction Status Date / Time No Known Allergies Allergy Verified 07/03/22 20:56 Consultations 07/03/22 21:24 ED Decision to Admit Stat 07/04/22 08:49 Consult Gastroenterology Routine 07/05/22 08:49 Consult Nephrology Routine Ordered Studies 07/03/22 21:50 CT abd pelvis wo con Urgent IMPRESSION: 1. Decreased attenuation of the cardiac blood pool compatible with anemia. No acute retroperitoneal hematoma identified. 2. Hepatic steatosis with cirrhosis, trace abdominal pelvic ascites, esophageal and probable gastric varicosities. 3. Cholelithiasis. 4. Wall thickening of the cecum and ascending colon is likely secondary to portal colopathy. A nonspecific colitis could appear similarly. 5. Edema involving the pancreatic head and neck is likely secondary to the aforementioned ascites. Correlate with lipase level to exclude acute pancreatitis. 07/06/22 13:16 US abdomen ltd ascites Routine IMPRESSION: 1. Small amount of ascites. 2. Cirrhosis with splenomegaly. Hospital Course (1) Anemia: 61-year-old female past medical history significant for liver cirrhosis with associated ascites, esophageal varices, and pancytopenia, history of alcohol use disorder, depression, GERD admitted for acute blood loss anemia. Anemia: Presented with hemoglobin of 6.7 with mild hypotension. Hemoccult negative. -CT A&P w/o evidence of acute retroperitoneal hematoma. Patient does have chronic anemia, she usually in the 9s to 10s -Received 2U PRBCs during stay w/ return of hemoglobin to 9.4. -Throughout stay went to 10 then down to 8.9, then to 8.0, then to 8.3, stable. -consulted GI, no further workup required. Can move up outpatient EGD to get sooner. -Acute blood loss anemia possibly from hemorrhoids. May benefit from further workup of anemia outpatient. -Patient to follow up with PCP and GI. LATASHA: Creatinine of 3.89 on admission,downtrended to 1.48. Baseline 0.8-1 Suspect this problem is multifactorial Likely some prerenal aspect rehydrated w/ IV fluids while inpatient. Potentially a hepatorenal aspect to it as well - May benefit from spironolactone outpatient given small ascites. - ABG shows mixed metabolic acidosis with respiratory alkalosis. - improved with bicarb. - Would recommend repeat CMP to check for improving renal function. Alcoholic liver cirrhosis: - initially concern over possible bleeding esophageal varices, but clinical progression and lack of dark stools makes this diagnosis unlikely. History of alcohol use INR elevated up to 2.0, down to 1.8 on discharge. vitamin K 10 mg IV administered on admission for INR 2.0 Meld NA score of 29 points 27-32% 90-day mortality - Monserrat is above 32 - placed on 28 day course of prednisone 40mg, received 2 days of prednisolone 40mg in hospital. Will need to taper. - US reveals small amounts of ascites, cirrhosis and splenomegaly. Patient would not benefit from paracentesis at this time. - Follow up with GI outpatient. Electrolyte abnormalities: K 2.5 and Mg 1.1 on admission. Replenished over stay. -Discharged on 20meq KCl daily and Mgoxide 400mg BID. Hemorrhoids: placed on topical steriods and sitz baths while in hospital. (2) Hypomagnesemia: (3) Elevated INR: (4) Depression: (5) GERD (gastroesophageal reflux disease): (6) Alcoholic cirrhosis of liver: (7) Hypokalemia: Total Time Total Time Spent Total Time Spent (In Minutes): Please see attending attestation. Discharge Plan Discharge Items Patient Disposition: Home - Self-Care Reason For Visit: ADNORMAL LABS Discharge Diagnosis: Anemia, LATASHA Activity: Per Instructions section Non-emergency contact: Primary Care Provider Call non-emergency contact if: your symptoms worsen, your pain is worsening and your temperature is above 101 Follow-up/Referrals: Katy Nath CRNP [Primary Care Provider] - Diet: Regular Addtl Attending Provider Instructions: A discharge summary will be sent to your primary care physician to ensure continuity of care. You came to the hospital due to outside blood work showing you had a low hemoglobin. Upon entry to the hospital you were transfused 2 units of red blood cells with good rise in your hemoglobin. Over the course of your hospital stay your hemoglobin fluctuated however it has stayed stable. The blood loss was thought to come from your hemorrhoids. You were also found to have an acute kidney injury that may have been from dehydration from blood loss. Your kidney function improved over the hospital stay with fluid rehydration. Given your improvement in anemia and kidney function, we feel it is okay for you to return home with close follow up with your doctors outpatient. Follow-up: * You should be seen by your primary physician within the next week. Please have them recheck your hemoglobin on a complete blood count and complete metabolic panel to check on electrolytes and liver function. * Please follow up with the reproduction order processor within the next few weeks. Medications: Your medication list has been reviewed and reconciled upon discharge to ensure accuracy and continuity of care. An updated list of all your medications is included with your hospital discharge paperwork. Please review this list closely, and make note of any changes. * You will be placed on a potassium supplement to take at home. You are to take one 40meq tablet every other day. * While in the hospital your magnesium was low and so you will be placed back on a magnesium supplement of 400mg twice daily to take. * You will continue the prednisone steroid medication for your cirrhosis. Please continue to take prednisone 40mg daily for another 26 days (total of 28 days) followed by a few days of 20mg. Take your medications as instructed; do not skip a dose of your medicines. Make sure all of your doctors know every medicine you are taking (including [id number] medicines, vitamins, and supplements). let your primary care provider know before taking any new medicines because some of these may interact with your current medications, or may make your symptoms worse. CONTACT YOUR PRIMARY CARE PROVIDER if you experience any of the following: * Fevers or shaking chills * Shortness of breath not relieved by inhalers, fainting * Sudden abdominal distension not relieved by catheterization. * Difficulty following your treatment plan, or difficulty taking medications CALL 911 OR GO TO THE EMERGENCY DEPARTMENT if you experience any of the fol lowing: * Sudden, severe abdominal pain or nausea/vomiting * Severe chest pain, or chest pain that radiates (moves) to your jaw or arm * Sudden, severe shortness of breath or difficulty breathing It was was our pleasure taking care of you here at [facility] . Thank you for allowing us to participate in your care. Pending Studies at Discharge: No Stand-Alone Forms: My [facility] Medications and DC Order Prescriptions: New magnesium oxide 400 mg (241.3 mg magnesium) Tablet 400 mg PO BID 30 Days Qty: 60 0RF potassium chloride 20 mEq tablet extended release 20 meq PO DAILY Qty: 30 0RF prednisone 20 mg tablet 40 mg PO DAILY 26 Days Qty: 56 0RF Rx Instructions: Take 40mg daily until August 02 then taper off with 20mg daily for 4 days or otherwise per follow up with doctor. Continued citalopram [Celexa] 20 mg tablet 20 mg PO QAM Qty: 30 11RF multivitamin Tablet 1 tab PO QAM propranolol 20 mg tablet 10 mg PO BID pantoprazole 40 mg tablet,delayed release (DR/EC) 40 mg PO QAM Rx Instructions: TAKE 1 TABLET BY MOUTH EVERY DAY folic acid 800 mcg Tablet 0.8 mg PO DAILY furosemide 40 mg tablet 40 mg PO QAM PRN (Reason: Edema) Rx Instructions: TAKE 1 TABLET BY MOUTH EVERY MORNING NEEDED FOR EDEMA hydrocortisone 2.5 % cream with perineal applicator 1 applic [place] UD Discharge Orders: Discharge Order (Routine); Ordered 07/08/22 Ordered By: Justice Morrow Admission Data Admit Date/Time: 07/03/22 21:50 Attending Provider: aN Russell Admit Provider: Amin-Navales,Clement A. Primary Care Provider: Katy Nath Other Providers: Raul Sanchez ; Foreign Valiente ; Lui Rivas ; Ghazala Oh ; Leta Vernon ; Autumn Munguia ; Jemima Jansen ; Alberto Brown ; Chalino Hernández ; Bora Blancas ; Dodie Lucas ; Teena Almodovar ; Gretchen Luciano ; Brenda Saleem ; Dorinda Correa ; Elizabeth Malave ; Erwin Abreu ; Steve Agarwal ; Magda Sanders ; Eric Esparza Jr ; Lucio Pennington ; Shaggy Jimenez ; Elizabeth Moss ; Arvin Patel ; Lizzie Newberry ; Harsh Noel Other Interventions: Discharge Summary Assessment (RN) Last Done: 07/08/22 13:39 Supervising Physician Co-Signing Physician Notes Patient seen and examined with PGY-2 Dr. Morrow. Agree with history, exam findings, assessment and plan of care as outlined. In brief, Ms Walsh is a 61 year old female with hx of liver cirrhosis with ascites, esophageal varices & pancytopenia, AUD, depression, GERD admitted with acute blood loss anemia. VS and nursing notes reviewed. Nontoxic appearing. Mucus membranes are moist. Heart with regular rate and rhythm. No lower extremity edema. Lungs are clear to auscultation in all lung youssef with good air movement throughout. Abdomen is soft, slight distended. No abdominal wall edema. Nontender. Labs and imaging reviewed. 1. Acute blood loss anemia. Unclear etiology, but suspect anemia from hemorrhoidal bleeding. s/p 2 units PRBCs. Will need CBC in 1-2 weeks as an outpatient and possible iron studies in a few months to further assess iron stores. Discussed that she can try iron polysaccharide as this tends to be less of a GI irritant than other formulations of iron. 2. LATASHA. Pre-renal. Cr 3.89 on admission. Now Cr is 1.48. 3. Cirrhosis with esophageal varies, ascites. Started prednisone 40mg x 28 days followed by taper. INR 1.8 without anticoagulation medications, 4. AUD. Last drink was day prior to admission. Dispo: discharge home today. I personally spent 30 minutes discharge planning for this patient. Resident Activity Tracking Resident Involvement: Resident Care Provided Care Provided: Adult [facility]
== END 2022-07-08 15:12 | disposition home or self-care (01) | DRG 812 ==
LOC: ED 18:30 → 4W 21:50 → SUATTDRO 21:50 → 4W 22:34
DX: Z87.891 Personal history of nicotine dependence; K70.31 Alcoholic cirrhosis of liver with ascites; K21.9 Gastro-esophageal reflux disease without esophagitis; F32.A Depression, unspecified; N17.9 Acute kidney failure, unspecified; E83.42 Hypomagnesemia; D62 Acute posthemorrhagic anemia; F19.90 Other psychoactive substance use, unspecified, uncomplicated; K64.9 Unspecified hemorrhoids; F10.20 Alcohol dependence, uncomplicated; I85.10 Secondary esophageal varices without bleeding; E87.6 Hypokalemia; E87.4 Mixed disorder of acid-base balance; E86.0 Dehydration